=== PATIENT | female | born 1945 | race Caucasian/White ===

== ENCOUNTER 2022-06-05 16:32 | Emergency (ER) | payer MEDICARE, OTHER ==
[~2022-06-05] VITALS: Ht 165.1 cm; Wt 86.2 kg
--- NOTE | 2022-06-05 16:58 | ED General ---
General Chief Complaint: Hip/Pelvic Problems Stated Complaint: HIP PAIN Nursing Triage Note: PT TO [facility], RECENTLY MOVED TO THE AREA. PT C/O R HIP PAIN W AMBULATION, SOA, AND CHRONIC AFIB, DENIES CP. PT A&OX4. Source of Information: Patient, EMS Exam Limitations: No Limitations History of Present Illness Date Seen by Provider: Jun 05, 2022 Time Seen by Provider: 16:30 Initial Comments Patient is a 77 yo F who presents to the ED with chronic right hip pain, shortness of air, and A. fib. She is advised any new symptoms. She states she recently moved to the area and moved in with her daughter. States she has not yet established a local PCP or a local business planning manager. EMS states patient was stable en route. Allergies and Home Medications Allergies Coded Allergies: cyclobenzaprine (Verified Allergy, Unknown, 06/05/22) Patient Home Medication List Home Medication List Reviewed: Yes Review of Systems Review of Systems Constitutional: no symptoms reported EENTM: no symptoms reported Respiratory: see HPI Cardiovascular: no symptoms reported Gastrointestinal: no symptoms reported Musculoskeletal: see HPI Past Vomjglc-Skywln-Vehtqt Hx Patient Social History Tobacco Use?: Yes Tobacco type used: Cigarettes Smoking Status: Current Everyday Smoker Use of E-Cig and/or Vaping dev: No Substance use?: No Alcohol Use?: No Immunizations Up To Date Influenza Vaccine Up-to-Date: No; Not Current First/Initial COVID19 Vaccinat: NONE Second COVID19 Vaccination Ford: NONE Third COVID19 Vaccination Date: NONE COVID19 Vaccine Can Sterilizer: NONE Physical Exam Vital Signs Vital Signs - First Documented 06/05/22 16:34 Temp 36.1 Pulse 93 Resp 20 B/P (MAP) 143/70 (94) Pulse Ox 97 O2 Delivery Room Air Capillary Refill : Less Than 3 Seconds Height, Weight, BMI Height: '" Weight: lbs. oz. kg; 31.00 BMI Method: General Appearance: No Apparent Distress, WD/WN HEENT: PERRL/EOMI, TMs Normal, Normal ENT Inspection, Pharynx Normal Neck: Full Range of Motion, Normal Inspection, Non Tender, Supple Respiratory: Chest Non Tender, Lungs Clear, Normal Breath Sounds Cardiovascular: Regular Rate, Rhythm Gastrointestinal: Normal Bowel Sounds Back: Normal Inspection, No Vertebral Tenderness Extremity: Normal Capillary Refill Neurologic/Psychiatric: Alert, Oriented x3, No Motor/Sensory Deficits, Normal Mood/Affect Skin: Normal Color, Warm/Dry Progress/Results/Core Measures Suspected Sepsis SIRS Temperature: Pulse: 93 Respiratory Rate: 20 Blood Pressure 143 /70 Mean: 94 Results/Orders Lab Results Laboratory Tests Test 06/05/22 17:38 Range/Units Troponin I < 0.028 <0.028 NG/ML My Orders Orders - MIGUEL JHA APRN Pelvis With Right Hip 2-3views (06/05/22 16:47) Ekg Tracing (06/05/22 16:47) Chest 1 View, Ap/Pa Only (06/05/22 16:47) Troponin I Hughes (06/05/22 16:47) Vital Signs/I&O 06/05/22 06/05/22 16:34 18:24 Temp 36.1 36.1 Pulse 93 87 Resp 20 20 B/P (MAP) 143/70 (94) 140/68 Pulse Ox 97 97 O2 Delivery Room Air Room Air Capillary Refill : Less Than 3 Seconds Blood Pressure Mean: 94 Progress Note : Progress Note Patient is nontoxic and well-hydrated on exam. All of her complaints are chronic nothing appears acute. Troponin is negative. EKG without acute ischemic change or arrhythmia. Right hip and pelvis x-rays are acutely negative. Chest x-ray reveals no acute findings. It was discussed that patient needs to establish local PCP and business planning manager for further evaluation of her chronic problems. There appears to be no acute issues at this time warranting admission or further diagnostic testing. Return precautions for urgent symptomology discussed. Patient verbalized understanding. ECG EKG : EKG Time: 17:15 Rate: 80 Rhythm: A Fib/Flutter ECG Impression: Atrial Fibrillation Departure Impression Primary Impression: Chronic right hip pain Additional Impressions: Atrial fibrillation Qualified Codes: I48.20 - Chronic atrial fibrillation, unspecified Chronic shortness of breath Disposition: HOME, SELF-CARE Condition: Stable Departure-Patient Inst. Decision time for Depature: 18:10 Patient Instructions: Chronic Pain (DC), Shortness of Breath (Dyspnea) MIGUEL JHA APRN Jun 05, 2022 16:58
--- NOTE | 2022-06-05 17:36 | Diagnostic Imaging Report ---
INDICATION: Dyspnea. EXAMINATION: AP view of the chest was obtained. COMPARISON: No previous study is available for comparison at this time. FINDINGS: Heart size and pulmonary vasculature are within normal limits, and the lungs are clear, bilaterally. IMPRESSION: Unremarkable chest. Dictated by: Dictated on workstation # [id number]
--- NOTE | 2022-06-05 17:36 | Diagnostic Imaging Report ---
INDICATION: Pelvic and right hip pain. EXAMINATION: AP view of the pelvis was obtained with coned AP and frog-leg views of right hip. FINDINGS: There is marked narrowing of right hip joint space with subchondral sclerosis and marginal spurring. Note is also made of lower lumbar spondylosis and femoral arterial atherosclerosis. No acute fracture or malalignment is identified. IMPRESSION: Degenerative-type findings most pronounced in the right hip joint and lower lumbar region without acute abnormality detected. Dictated by: Dictated on workstation # [id number]
[2022-06-05 18:24] VITALS: BP 140/68
== END 2022-06-05 19:05 | disposition home or self-care (01) ==
LOC: ER 16:34
DX: M25.551 Pain in right hip (principal); G89.29 Other chronic pain; I48.91 Unspecified atrial fibrillation; R06.02 Shortness of breath; F17.210 Nicotine dependence, cigarettes, uncomplicated; Z28.310 Unvaccinated for COVID-19
CPT/HCPCS: 36415; 71045; 84484; 93005

== ENCOUNTER → 2022-06-09 | Outpatient (CLI) | payer MEDICARE | LOC: ORTHO 11:27 | PROVIDERS: ATTEND Orthopaedic Surgery | DX: M16.11 Unilateral primary osteoarthritis, right hip (principal) | CPT/HCPCS: 99203 ==

== ENCOUNTER 2022-06-16 12:12 | Emergency (ER) | payer MEDICARE ==
[2022-06-16] MEDS ORDERED: ASPIRIN 81 MG CHEW (CHILDREN'S ASA) PO ONE (12:30)
--- NOTE | 2022-06-16 12:30 | ED General ---
General Chief Complaint: General Problems/Pain Stated Complaint: CHEST PAINS Nursing Triage Note: pt to rm 7 by [facility] with c/o chest tightness after waking up about 30 min prior to calling ems. pt also states she has r hip pain that is chronic Source of Information: Patient Exam Limitations: No Limitations History of Present Illness Date Seen by Provider: Jun 16, 2022 Time Seen by Provider: 12:14 Initial Comments Here by EMS with chest tightness after waking up about 30 minutes prior to arrival. She is concerned that this may be a reaction to one of her medicines. She has been seen previously for similar concern and for her hip pain. She just moved to the area. [facility]. She apparently started a new anxiety medicine as well as tramadol today. Denies chest pain currently or breathing problems. Did have some dizziness and shortness of breath that has gotten better. Denies fever or chills. Timing/Duration: 1/2 Hour, Changing Over Time, Gone Now Severity: Mild, Moderate Associated Systoms: Chest Pain; No Fever/Chills, No Nausea/Vomiting; Shortness of Air, Weakness Allergies and Home Medications Allergies Coded Allergies: cyclobenzaprine (Verified Allergy, Unknown, 06/05/22) Patient Home Medication List Home Medication List Reviewed: Yes Review of Systems Review of Systems Constitutional: see HPI; No chills, No fever EENTM: No nose congestion, No throat pain Respiratory: No cough; short of breath Cardiovascular: chest pain (Central tightness that is moderate and changing in intensity); No edema Gastrointestinal: No nausea, No vomiting Genitourinary: no symptoms reported Musculoskeletal: joint pain; No joint swelling Skin: change in color (Several small ecchymotic areas to bilateral arms); No lesions Psychiatric/Neurological: Anxiety, Weakness All Other Systems Reviewed Negative Unless Noted: Yes Past Dklcotm-Lwhvnh-Oyhltt Hx Patient Social History Tobacco Use?: Yes Substance use?: No Alcohol Use?: No Pt feels they are or have been: No Immunizations Up To Date Influenza Vaccine Up-to-Date: No; Not Current First/Initial COVID19 Vaccinat: NONE Second COVID19 Vaccination Ford: NONE Third COVID19 Vaccination Date: NONE Past Medical History Surgery/Hospitalization HX: anxiety hip surgeries Cardiac: Yes Atrial Fibrillation Musculoskeletal: Yes Endocrine: No Cancer: No Psychosocial: Yes Anxiety, Depression Family Medical History No Pertinent Family Hx Physical Exam Vital Signs Vital Signs - First Documented 06/16/22 12:14 Temp 36.5 Pulse 76 Resp 18 B/P (MAP) 126/78 (94) Capillary Refill : Height, Weight, BMI Height: '" Weight: lbs. oz. kg; 31.00 BMI Method: General Appearance: WD/WN, Anxious, Mild Distress HEENT: PERRL/EOMI, Pharynx Normal Neck: Non Tender, Supple Respiratory: Lungs Clear, Normal Breath Sounds Cardiovascular: Regular Rate, Rhythm, No Murmur Gastrointestinal: Non Tender, Soft Back: Normal Inspection, No CVA Tenderness, No Vertebral Tenderness Extremity: Non Tender, No Calf Tenderness Neurologic/Psychiatric: Alert, Oriented x3 Skin: Warm/Dry, Ecchymosis (Few small ecchymotic areas to bilateral arms) Progress/Results/Core Measures Suspected Sepsis SIRS Temperature: Pulse: 76 Respiratory Rate: 18 Laboratory Tests 06/16/22 12:30: White Blood Count 8.2 Blood Pressure 126 /78 Mean: 94 Laboratory Tests 06/16/22 12:30: Creatinine 0.76, INR Comment 2.9H, Platelet Count 379, Total Bilirubin 0.7 Results/Orders Lab Results Laboratory Tests Test 06/16/22 12:30 06/16/22 14:34 06/16/22 16:59 Range/Units White Blood Count 8.2 4.3-11.0 10^3/uL Red Blood Count 2.89 L 3.80-5.11 10^6/uL Hemoglobin 7.1 L 11.5-16.0 g/dL Hematocrit 24 L 35-52 % Mean Corpuscular Volume 83 80-99 fL Mean Corpuscular Hemoglobin 25 25-34 pg Mean Corpuscular Hemoglobin Concent 30 L 32-36 g/dL Red Cell Distribution Width 14.6 H 10.0-14.5 % Platelet Count 379 130-400 10^3/uL Mean Platelet Volume 9.1 9.0-12.2 fL Immature Granulocyte % (Auto) 1 % Neutrophils (%) (Auto) 71 42-75 % Lymphocytes (%) (Auto) 21 12-44 % Monocytes (%) (Auto) 7 0-12 % Eosinophils (%) (Auto) 1 0-10 % Basophils (%) (Auto) 0 0-10 % Neutrophils # (Auto) 5.8 1.8-7.8 10^3/uL Lymphocytes # (Auto) 1.7 1.0-4.0 10^3/uL Monocytes # (Auto) 0.5 0.0-1.0 10^3/uL Eosinophils # (Auto) 0.1 0.0-0.3 10^3/uL Basophils # (Auto) 0.0 0.0-0.1 10^3/uL Immature Granulocyte # (Auto) 0.1 0.0-0.1 10^3/uL Prothrombin Time 30.9 H 12.2-14.7 SEC INR Comment 2.9 H 0.8-1.4 Activated Partial Thromboplast Time 43 H 24-35 SEC Sodium Level 138 135-145 MMOL/L Potassium Level 3.4 L 3.6-5.0 MMOL/L Chloride Level 106 98-107 MMOL/L Carbon Dioxide Level 23 21-32 MMOL/L Anion Gap 9 5-14 MMOL/L Blood Urea Nitrogen 11 7-18 MG/DL Creatinine 0.76 0.60-1.30 MG/DL Estimat Glomerular Filtration Rate 82 BUN/Creatinine Ratio 14 Glucose Level 123 H 70-105 MG/DL Calcium Level 8.9 8.5-10.1 MG/DL Corrected Calcium 9.2 8.5-10.1 MG/DL Magnesium Level 1.4 L 1.6-2.4 MG/DL Total Bilirubin 0.7 0.1-1.0 MG/DL Aspartate Amino Transf (AST/SGOT) 16 5-34 U/L Alanine Aminotransferase (ALT/SGPT) 12 0-55 U/L Alkaline Phosphatase 105 40-136 U/L Myoglobin 36.2 10.0-92.0 NG/ML Troponin I < 0.028 0.029 H < 0.028 <0.028 NG/ML B-Type Natriuretic Peptide 650.6 H <100.0 PG/ML Total Protein 6.9 6.4-8.2 GM/DL Albumin 3.6 3.2-4.5 GM/DL My Orders Orders - ELMER ZACARIAS MD Cbc With Automated Diff (06/16/22 12:23) Magnesium (06/16/22 12:23) Chest 1 View, Ap/Pa Only (06/16/22 12:23) Ekg Tracing (06/16/22 12:23) Comprehensive Metabolic Panel (06/16/22 12:23) Myoglobin Serum (06/16/22 12:23) Protime With Inr (06/16/22 12:23) Partial Thromboplastin Time (06/16/22 12:23) O2 (06/16/22 12:23) Monitor-Rhythm Ecg Trace Only (06/16/22 12:23) Lipid Panel (06/17/22 06:00) Ed Iv/Invasive Line Start (06/16/22 12:23) Troponin I Monona (06/16/22 12:23) Aspirin Chewable Tablet (Baby Aspirin Ch (06/16/22 12:30) Bnp Jammie (06/16/22 13:25) General/Regular (06/16/22 Lunch) Troponin I Jammie (06/16/22 14:27) Ns Iv 500 Ml (Sodium Chloride 0.9%) (06/16/22 16:00) Troponin I Monona (06/16/22 16:30) Medications Given in ED Current Medications Medications Dose Ordered Sig/Marco Antonio Route Start Time Stop Time Status Last Admin Dose Admin Aspirin 324 mg ONCE ONCE PO 06/16/22 12:30 06/16/22 12:31 DC 06/16/22 12:53 324 MG Sodium Chloride 500 ml @ 0 mls/hr Q0M ONCE IV 06/16/22 16:00 06/16/22 16:01 DC 06/16/22 16:03 500 MLS/HR Vital Signs/I&O 06/16/22 12:14 Temp 36.5 Pulse 76 Resp 18 B/P (MAP) 126/78 (94) Capillary Refill : Blood Pressure Mean: 94 Progress Note : Progress Note Seen and evaluated. IV, labs, EKG and chest x-ray ordered. ASA 324 mg p.o. Monitor patient. 1430: Patient is pain-free and doing better. We will repeat troponin now. First set is negative. She is asking for something to eat which we will go ahead and do. Monitor patient. 1555: Repeat troponin has gone from <0.028 to 0.029. Given the noted rise, we will repeat the troponin again at 2 hours and make sure that this is not sustained and or not significant or look f or significant rise. This was discussed with the patient who agrees. She is still feeling much better and has eaten her lunch without difficulty. She has had no chest pain for the last few hours. Monitor patient. 1741: Repeat troponin is negative. No concerns for persistent cardiac event. Patient will need to do follow-up and she has some of that already set. She initiated her evaluation with PCP yesterday and I will have her continue that. Discharged home with return precautions. Patient verbalized understanding of instructions and agreement with plan. 1744: I did discuss the case with Dr. Worrell and he will see her in follow-up. Patient to call for appointment. ECG Initial ECG Impression Date: Jun 16, 2022 Initial ECG Impression Time: 12:21 Initial ECG Rate: 76 Initial ECG Rhythm: Normal Sinus Comment Sinus rhythm with artifact and sinus arrhythmia. Normal axis. No evidence of ST elevation MO. Similar to previous of 06/15/2022. Interpreted by me. Diagnostic Imaging Diagonstic Imaging: Xray Plain Films/CT/US/NM/MRI: chest Comments [facility] [place], [place] NAME: [facility] REC#: [id number] PT STATUS: REG ER : 1945 PHYSICIAN: ELMER ZACARIAS MD ADMIT DATE: 06/16/22/ER Draft Date of Exam:06/16/22 CHEST 1 VIEW, AP/PA ONLY INDICATION: Chest pain. TECHNIQUE: Frontal chest obtained at 12:47 p.m. and compared with 06/05/2022. FINDINGS: There is cardiomegaly. Mediastinal silhouette is unremarkable. The lungs are clear. There is no pneumothorax or pleural fluid. IMPRESSION: Cardiomegaly with no acute process in the chest. Dictated on workstation # [id number] Dict: 06/16/22 1308 Trans: 06/16/22 1310 [id number] Interpreted by: JAE HARTMAN MD Electronically signed by: Departure Impression Primary Impression: Chest pain Qualified Codes: R07.9 - Chest pain, unspecified Additional Impression: Chronic right hip pain Disposition: 01 HOME, SELF-CARE Condition: Improved Departure-Patient Inst. Decision time for Depature: 17:45 Referrals: NATALIE WORRELL MD Patient Instructions: Chest Pain Add. Discharge Instructions: All discharge instructions reviewed with patient and/or family. Voiced understanding. Follow-up with Dr. Worrell for recheck and further evaluation of your chest pain. Call his office in the morning for appointment in the next day or 2. Keep appointment with your primary care provider as well. Return for worse pain, fever, vomiting, weakness, breathing problems or other concerns as needed. Copy Copies To 1: SHAN JUAREZ MD, TIMOTHY D MD Jun 16, 2022 12:30
[2022-06-16 12:50] LABS: BASOPHILS % (AUTO) 0 % (0-10); EOSINOPHILS # (AUTO) 0.1 10^3/uL (0.0-0.3); EOSINOPHILS % (AUTO) 1 % (0-10); HEMATOCRIT 24 % (35-52); HEMOGLOBIN 7.1 g/dL (11.5-16.0); LYMPHOCYTES # (AUTO) 1.7 10^3/uL (1.0-4.0); LYMPHOCYTES % (AUTO) 21 % (12-44); MEAN CORPUSCULAR HEMOGLOBIN 25 pg (25-34); MEAN CORPUSCULAR HGB CONC 30 g/dL (32-36); MEAN CORPUSCULAR VOLUME 83 fL (80-99); MEAN PLATELET VOLUME 9.1 fL (9.0-12.2); MONOCYTES # (AUTO) 0.5 10^3/uL (0.0-1.0); MONOCYTES % (AUTO) 7 % (0-12); NEUTROPHILS # (AUTO) 5.8 10^3/uL (1.8-7.8); NEUTROPHILS % (AUTO) 71 % (42-75); PLATELET COUNT 379 10^3/uL (130-400); WHITE BLOOD COUNT 8.2 10^3/uL (4.3-11.0)
[2022-06-16 12:54] LABS: ALBUMIN 3.6 GM/DL (3.2-4.5); POTASSIUM 3.4 MMOL/L (3.6-5.0)
[2022-06-16 12:55] LABS: CALCIUM 8.9 MG/DL (8.5-10.1); INR 2.9 (0.8-1.4); PROTHROMBIN TIME PATIENT 30.9 SEC (12.2-14.7)
[2022-06-16 12:56] LABS: TOTAL PROTEIN 6.9 GM/DL (6.4-8.2)
[2022-06-16 12:58] LABS: BILIRUBIN,TOTAL 0.7 MG/DL (0.1-1.0)
[2022-06-16 13:00] LABS: CREATININE SERUM 0.76 MG/DL (0.60-1.30)
[2022-06-16 13:03] LABS: MAGNESIUM 1.4 MG/DL (1.6-2.4)
--- NOTE | 2022-06-16 13:11 | Diagnostic Imaging Report ---
INDICATION: Chest pain. TECHNIQUE: Frontal chest obtained at 12:47 p.m. and compared with 06/05/2022. FINDINGS: There is cardiomegaly. Mediastinal silhouette is unremarkable. The lungs are clear. There is no pneumothorax or pleural fluid. IMPRESSION: Cardiomegaly with no acute process in the chest. Dictated by: Dictated on workstation # [id number]
[2022-06-16] MEDS ORDERED: NS IV 500 ML 500 ML IV ONE (16:00)
[2022-06-16 18:02] VITALS: BP 155/90
== END 2022-06-16 18:01 | disposition home or self-care (01) ==
LOC: EDUNIT# 12:12 → ER 12:13
DX: R07.89 Other chest pain (principal); M25.551 Pain in right hip; G89.29 Other chronic pain; Z28.310 Unvaccinated for COVID-19
CPT/HCPCS: 36415; 71045; 80053; 83735; 83874; 83880; 84484; 85025; 85610; 85730; 93005; 93041

== ENCOUNTER 2022-06-25 06:29 | Inpatient (IN) | payer MEDICARE ==
[~2022-06-25] VITALS: Ht 165 cm; Wt 86.4 kg
[2022-06-25] MEDS ORDERED: ANTACID SUSP 30 ML UDC (MYLANTA) PO ONE (06:45)
[2022-06-25] MEDS ORDERED: LIDOCAINE 2% VISCOUS 15 ML UDC PO ONE (06:45)
[2022-06-25] MEDS ORDERED: ASPIRIN 81 MG CHEW (CHILDREN'S ASA) PO ONE (06:45)
[2022-06-25] MEDS ORDERED: ONDANSETRON 4 MG/2 ML (SDV) Z0FRAN IVP ONE (06:45)
[2022-06-25 07:00] LABS: BASOPHILS % (AUTO) 0 % (0-10); EOSINOPHILS % (AUTO) 1 % (0-10); HEMATOCRIT 28 % (35-52); HEMOGLOBIN 8.1 g/dL (11.5-16.0); LYMPHOCYTES # (AUTO) 1.8 10^3/uL (1.0-4.0); LYMPHOCYTES % (AUTO) 23 % (12-44); MEAN CORPUSCULAR HEMOGLOBIN 23 pg (25-34); MEAN CORPUSCULAR HGB CONC 29 g/dL (32-36); MEAN CORPUSCULAR VOLUME 81 fL (80-99); MEAN PLATELET VOLUME 8.5 fL (9.0-12.2); MONOCYTES # (AUTO) 0.5 10^3/uL (0.0-1.0); MONOCYTES % (AUTO) 6 % (0-12); NEUTROPHILS # (AUTO) 5.6 10^3/uL (1.8-7.8); NEUTROPHILS % (AUTO) 70 % (42-75); PLATELET COUNT 430 10^3/uL (130-400)
[2022-06-25 07:14] LABS: ALBUMIN 3.8 GM/DL (3.2-4.5); INR 1.7 (0.8-1.4); POTASSIUM 3.1 MMOL/L (3.6-5.0); PROTHROMBIN TIME PATIENT 20.1 SEC (12.2-14.7)
[2022-06-25 07:15] LABS: CALCIUM 9.3 MG/DL (8.5-10.1)
[2022-06-25 07:16] LABS: TOTAL PROTEIN 7.4 GM/DL (6.4-8.2)
[2022-06-25 07:18] LABS: BILIRUBIN,TOTAL 0.5 MG/DL (0.1-1.0)
[2022-06-25 07:20] LABS: CREATININE SERUM 0.9 MG/DL (0.60-1.30)
[2022-06-25 07:23] LABS: MAGNESIUM 1.6 MG/DL (1.6-2.4)
[2022-06-25 07:24] LABS: LIPASE 12 U/L (8-78)
[2022-06-25] MEDS ORDERED: POTASSIUM CL 10MEQ/50ML IVPB 50 ML IV ONE (07:30)
[2022-06-25] MEDS ORDERED: NS IV 1000 ML 1,000 ML IV SCH (07:30)
--- NOTE | 2022-06-25 07:38 | Diagnostic Imaging Report ---
EXAMINATION: Chest 1 view HISTORY: Chest pain COMPARISON: 06/16/2022 FINDINGS: Heart size and pulmonary vasculature are stable. The lungs are clear without consolidation, pleural effusion, or pneumothorax. Degenerative changes of the thoracic spine. Osseous structures are otherwise intact. IMPRESSION: 1. No acute radiographic abnormality in the chest. Dictated by: Dictated on workstation # [id number]
--- NOTE | 2022-06-25 07:59 | ED Chest Pain ---
General Chief Complaint: Chest Pain Stated Complaint: CP Nursing Triage Note: brought in by [facility] for chest pain. pt reports being startled awake by yelling. reports anxiety reguarding returning to home. pt having visual hallucinations per ems. Source: patient Exam Limitations: no limitations History of Present Illness Date Seen by Provider: Jun 25, 2022 Time Seen by Provider: 06:30 Initial Comments This is 77-year-old woman presents to the emergency room via EMS with complaints of chest pain that started this morning when she was startled awake. Patient is not aware of what caused her to wake up startled but she reports a pounding/racing heart and chest pain upon waking. EMS reported that [facility] was somehow involved with the family last night or this morning. They reported there were some arguments and family noted patient to be hallucinating. Patient is a relatively vague historian. She reports history of atrial fibrillation. She does not know her medications but believes she takes Xarelto. She has not taken her morning medications. I did contact of the [facility] pharmacy this morning and they noted she had filled tramadol and bupropion recently. She reports her primary care is with the [facility] clinic and her content designer is Dr. Stout in [place]. She has epigastric tenderness on exam. Patient admits to smoking marijuana. Patient state her daughter figure (Daniel) said, "You can't come back here if you take an ambulance." Patient does not want to go back to Daniel's home and does not want us to communicate with any family or friends. 11:16 -I was able to contact to the [facility] pharmacy and discovered that patient filled Xarelto 20 mg daily and gabapentin 300 mg (2 in the morning, 1 in the afternoon, and 1 at bedtime) about 2 weeks ago. She had previously filled bupropion 150 mg daily and tramadol 50 mg from the [facility] pharmacy. Allergies and Home Medications Allergies Coded Allergies: cyclobenzaprine (Verified Allergy, Unknown, 06/05/22) Patient Home Medication List Home Medication List Reviewed: Yes Apixaban (Eliquis) 5 Mg Tablet, 5 MG PO BID Prescribed by: ROSEANN LARA on 06/27/22 1316 Bupropion HCl (Bupropion HCl Sr) 150 Mg Tablet.er, 150 MG PO BID Prescribed by: ROSEANN LARA on 11/28/22 1316 Cefdinir (Cefdinir) 300 Mg Capsule, 300 MG PO BID Prescribed by: ROSEANN LARA on 06/27/221315 Pantoprazole Sodium (Pantoprazole Sodium) 40 Mg Tablet.dr, 40 MG PO DAILY Prescribed by: ROSEANN LARA on 06/27/221315 Review of Systems Review of Systems Constitutional: no symptoms reported EENTM: No Symptoms Reported Respiratory: Orthopnea Cardiovascular: See HPI Gastrointestinal: See HPI Genitourinary: No Symptoms Reported Musculoskeletal: no symptoms reported Skin: no symptoms reported Psychiatric/Neurological: See HPI Endocrine: No Symptoms Reported Hematologic/Lymphatic: No Symptoms Reported Past Glilght-Brcdzr-Loohlx Hx Patient Social History Tobacco Use?: Yes Substance use?: Yes Substance type: Marijuana Alcohol Use?: No Pt feels they are or have been: No Immunizations Up To Date First/Initial COVID19 Vaccinat: NONE Second COVID19 Vaccination Ford: NONE Third COVID19 Vaccination Date: NONE Past Medical History Surgery/Hospitalization HX: anxiety, depression, afib hip surgeries Surgeries: Yes Orthopedic Respiratory: No Cardiac: Yes Atrial Fibrillation Neurological: No : No Genitourinary: No Gastrointestinal: No Musculoskeletal: Yes Arthritis Endocrine: No Cancer: No Psychosocial: Yes Anxiety, Depression Family Medical History No Pertinent Family Hx Physical Exam Vital Signs Vital Signs - First Documented 06/25/22 06:29 Temp 35.9 Pulse 60 Resp 16 B/P (MAP) 124/88 (100) Pulse Ox 99 O2 Delivery Room Air Capillary Refill : Less Than 3 Seconds Height, Weight, BMI Height: '" Weight: lbs. oz. kg; 31.00 BMI Method: General Appearance: No Apparent Distress, WD/WN, Anxious (Mildly) HEENT: PERRL/EOMI, Normal ENT Inspection Neck: Normal Inspection; No JVD Respiratory: Chest Non Tender, Lungs Clear, Normal Breath Sounds, No Accessory Muscle Use, No Respiratory Distress Cardiovascular: No Edema, No JVD, No Murmur, Normal Peripheral Pulses, Irregularly Irregular (Normal rate) Gastrointestinal: Normal Bowel Sounds, Soft, Tenderness (Epigastric) Extremity: Normal Inspection, Non Tender, No Pedal Edema Neurologic/Psychiatric: Alert, Oriented x3, No Motor/Sensory Deficits, Normal Mood/Affect, Other (Poor historian) Skin: Normal Color, Warm/Dry Progress/Results/Core Measures Results/Orders Lab Results Laboratory Tests Test 06/25/22 06:42 06/25/22 08:01 06/25/22 10:05 Range/Units White Blood Count 8.0 4.3-11.0 10^3/uL Red Blood Count 3.46 L 3.80-5.11 10^6/uL Hemoglobin 8.1 L 11.5-16.0 g/dL Hematocrit 28 L 35-52 % Mean Corpuscular Volume 81 80-99 fL Mean Corpuscular Hemoglobin 23 L 25-34 pg Mean Corpuscular Hemoglobin Concent 29 L 32-36 g/dL Red Cell Distribution Width 15.1 H 10.0-14.5 % Platelet Count 430 H 130-400 10^3/uL Mean Platelet Volume 8.5 L 9.0-12.2 fL Immature Granulocyte % (Auto) 0 % Neutrophils (%) (Auto) 70 42-75 % Lymphocytes (%) (Auto) 23 12-44 % Monocytes (%) (Auto) 6 0-12 % Eosinophils (%) (Auto) 1 0-10 % Basophils (%) (Auto) 0 0-10 % Neutrophils # (Auto) 5.6 1.8-7.8 10^3/uL Lymphocytes # (Auto) 1.8 1.0-4.0 10^3/uL Monocytes # (Auto) 0.5 0.0-1.0 10^3/uL Eosinophils # (Auto) 0.0 0.0-0.3 10^3/uL Basophils # (Auto) 0.0 0.0-0.1 10^3/uL Immature Granulocyte # (Auto) 0.0 0.0-0.1 10^3/uL Absolute Reticulocyte Count 64 24-90 10e9/uL Percent Reticulocyte Count 1.86 0.50-2.40 % Prothrombin Time 20.1 H 12.2-14.7 SEC INR Comment 1.7 H 0.8-1.4 Activated Partial Thromboplast Time 31 24-35 SEC Sodium Level 139 135-145 MMOL/L Potassium Level 3.1 L 3.6-5.0 MMOL/L Chloride Level 105 98-107 MMOL/L Carbon Dioxide Level 20 L 21-32 MMOL/L Anion Gap 14 5-14 MMOL/L Blood Urea Nitrogen 16 7-18 MG/DL Creatinine 0.90 0.60-1.30 MG/DL Estimat Glomerular Filtration Rate 67 BUN/Creatinine Ratio 18 Glucose Level 170 H 70-105 MG/DL Calcium Level 9.3 8.5-10.1 MG/DL Corrected Calcium 9.5 8.5-10.1 MG/DL Magnesium Level 1.6 1.6-2.4 MG/DL Iron Level 19 L 33-167 ug/dL Ferritin 14.7 L 20.0-177.0 ng/mL Total Bilirubin 0.5 0.1-1.0 MG/DL Aspartate Amino Transf (AST/SGOT) 9 5-34 U/L Alanine Aminotransferase (ALT/SGPT) 7 0-55 U/L Alkaline Phosphatase 99 40-136 U/L Myoglobin 40.7 10.0-92.0 NG/ML Troponin I < 0.028 0.120 H <0.028 NG/ML Total Protein 7.4 6.4-8.2 GM/DL Albumin 3.8 3.2-4.5 GM/DL Lipase 12 8-78 U/L Vitamin B12 Level 780 830-7417 pg/mL Urine Color ORANGE Urine Clarity CLEAR Urine pH 6.0 5-9 Urine Specific [place] 1.025 H 1.016-1.022 Urine Protein NEGATIVE NEGATIVE Urine Glucose (UA) NEGATIVE NEGATIVE Urine Ketones NEGATIVE NEGATIVE Urine Nitrite POSITIVE H NEGATIVE Urine Bilirubin NEGATIVE NEGATIVE Urine Urobilinogen 0.2 < = 1.0 MG/DL Urine Leukocyte Esterase 2+ H NEGATIVE Urine RBC (Auto) NEGATIVE NEGATIVE Urine RBC NONE /HPF Urine WBC 50-100 H /HPF Urine Squamous Epithelial Cells 0-2 /HPF Urine Crystals NONE /LPF Urine Bacteria LARGE H /HPF Urine Casts NONE /LPF Urine Mucus NEGATIVE /LPF Urine Culture Indicated YES Urine Opiates Screen NEGATIVE NEGATIVE Urine Oxycodone Screen NEGATIVE NEGATIVE Urine Methadone Screen NEGATIVE NEGATIVE Urine Propoxyphene Screen NEGATIVE NEGATIVE Urine Barbiturates Screen NEGATIVE NEGATIVE Ur Tricyclic Antidepressants Screen NEGATIVE NEGATIVE Urine Phencyclidine Screen NEGATIVE NEGATIVE Urine Amphetamines Screen NEGATIVE NEGATIVE Urine Methamphetamines Screen NEGATIVE NEGATIVE Urine Benzodiazepines Screen NEGATIVE NEGATIVE Urine Cocaine Screen NEGATIVE NEGATIVE Urine Cannabinoids Screen POSITIVE H NEGATIVE Micro Results Microbiology 06/25/22 Urine Culture - Final, Complete Escherichia coli My Orders Orders - BECKY DICKERSON MD Ekg Tracing (06/25/22 06:32) Cbc With Automated Diff (06/25/22 06:41) Magnesium (06/25/22 06:41) Chest 1 View, Ap/Pa Only (06/25/22 06:41) Comprehensive Metabolic Panel (06/25/22 06:41) Myoglobin Serum (06/25/22 06:41) Protime With Inr (06/25/22 06:41) Partial Thromboplastin Time (06/25/22 06:41) O2 (06/25/22 06:41) Monitor-Rhythm Ecg Trace Only (06/25/22 06:41) Lipid Panel (06/26/22 03:00) Ed Iv/Invasive Line Start (06/25/22 06:41) Troponin I Jammie (06/25/22 06:41) Lipase (06/25/22 06:41) Aspirin Chewable Tablet (Baby Aspirin Ch (06/25/22 06:45) Ua Culture If Indicated (06/25/22 06:41) Drug Screen Stat (Urine) (06/25/22 06:41) Ondansetron Injection (Zofran Injectio (06/25/22 06:45) Lidocaine 2% Viscous 15 Ml (Xylocaine Vi (06/25/22 06:45) Antacid Suspension (Mylanta Suspension (06/25/22 06:45) Ns Iv 1000 Ml (Sodium Chloride 0.9%) (06/25/22 07:30) Potassium Cl 10meq/50ml Ivpb (Kcl 10 Meq (06/25/22 07:30) Troponin I Jammie (06/25/22 09:45) Urine Culture (06/25/22 08:01) Alprazolam Tablet (Xanax Tablet) (06/25/22 09:30) Ceftriaxone 1 Gm Pre-Mix (Rocephin 1 Gm (06/25/22 10:59) Enoxaparin Injection (Lovenox Injection) (06/25/22 11:30) Clopidogrel Tablet (Plavix Tablet) (06/25/22 11:30) Pantoprazole Tablet (Protonix Tablet) (06/25/22 11:30) Ed Admission (Communication) (06/25/22 11:33) Medications Given in ED Vital Signs/I&O 06/25/22 06:29 Temp 35.9 Pulse 60 Resp 16 B/P (MAP) 124/88 (100) Pulse Ox 99 O2 Delivery Room Air Blood Pressure Mean: 100 Progress Progress Note #1: Time: 11:07 Progress Note Chest pain work-up was pursued upon arrival. She received aspirin 324 mg. Patient also received Zofran and a GI cocktail due to epigastric tenderness. She reported minimal improvement of pain. She was still rating her pain as 4/10 after the GI cocktail. Nitroglycerin was not administered as blood pressures were in the lower normotensive range. Repeat troponin was obtained approximately 4 hours after onset of symptoms. There was a notable increase in troponin which may indicate NSTEMI. Patient is now stating she is free of chest pain. She still has some right hip pain. We did contact [facility] and they do not have any recent stress test or cardiac angiography results. Patient states that her content designer is Dr. Stout in [place] and it has been many years since she has had stress testing or angiography performed. Hypokalemia was treated with potassium 10 mEq by IV route. She also received a liter of IV normal saline. We discussed CODE STATUS, and she would like to remain full code. I offered to contact family members, but she specifically request that I not contact anyone in her family. Progress Note #2: Time: 11:23 Progress Note Case was discussed with Dr. Vinson. He requested patient be further treated with therapeutic Lovenox, Plavix 75 mg, Protonix 40 mg orally, and a transfusion of 1 unit PRBC. He requested admission to cardiac stepdown or the ICU. We are limiting Plavix to 75 mg due to her anemia, although the anemia appears improved from her visit on June 16. Progress Note #3: Time: 11:38 Progress Note Case was discussed with Dr. Lara who accepts admission and will be placing admission orders. Report was given to eICU. Initial ECG Impression Date: Jun 25, 2022 Initial ECG Impression Time: 06:39 Initial ECG Rate: 61 Initial ECG Rhythm: A Fib/Flutter Initial ECG Impression: Atrial Fibrillation Comment Atrial fibrillation with no ST elevation or depression. No abnormal intervals or axis deviation. Diagnostic Imaging Diagonstic Imaging: Xray Plain Films/CT/US/NM/MRI: chest Comments Chest x-ray viewed by me and report reviewed. See report below: NAME: CAR[facility]LLINS [facility] REC#: [id number] PT STATUS: REG ER : 1945 PHYSICIAN: BECKY DICKERSON MD ADMIT DATE: 06/25/22/ER Draft Date of Exam:06/25/22 CHEST 1 VIEW, AP/PA ONLY EXAMINATION: Chest 1 view HISTORY: Chest pain COMPARISON: 06/16/2022 FINDINGS: Heart size and pulmonary vasculature are stable. The lungs are clear without consolidation, pleural effusion, or pneumothorax. Degenerative changes of the thoracic spine. Osseous structures are otherwise intact. IMPRESSION: 1. No acute radiographic abnormality in the chest. Dictated on workstation # [id number] Dict: 06/25/22 0736 Trans: 06/25/22 0737 [facility] [id number] Interpreted by: RUCHI FERRER DO Departure Communication (Admissions) Time/Spoke to Admitting Phy: 11:25 Dr. Lara Time/Spoke to Consulting Phy: 11:07 Dr. Vinson Impression Primary Impression: Chest pain Qualified Codes: R07.9 - Chest pain, unspecified Additional Impressions: Atrial fibrillation Qualified Codes: I48.91 - Unspecified atrial fibrillation Hypokalemia Anemia Qualified Codes: D64.9 - Anemia, unspecified Elevated troponin Epigastric pain UTI (urinary tract infection) Qualified Codes: N39.0 - Urinary tract infection, site not specified Disposition: ADMITTED INPATIENT Condition: Improved Admissions Decision to Admit Reason: Admit from ER (General) Decision to Admit/Date: Jun 25, 2022 Time/Decision to Admit Time: 11:07 Departure-Patient Inst. Referrals: DEMETRIUS WEBSTER DO (PCP/Family) Primary Care Physician Scripts Cefdinir (Cefdinir) 300 Mg Capsule 300 MG PO BID, #10 CAP Prov: ROSEANN LARA DO 06/27/22 Pantoprazole Sodium (Pantoprazole Sodium) 40 Mg Tablet.dr 40 MG PO DAILY, #30 TAB Prov: ROSEANN LARA DO 06/27/22 Bupropion HCl (Bupropion HCl Sr) 150 Mg Tablet.er 150 MG PO BID, #60 TAB Prov: ROSEANN LARA DO 06/27/22 Apixaban (Eliquis) 5 Mg Tablet 5 MG PO BID, #60 TAB Prov: ROSEANN LARA DO 06/27/22 Copy Copies To 1: [facility] [place]ies To 2: TREMANIE VINSON MD FACP FAC CCDS BECKY DICKERSON MD Jun 25, 2022 07:59
[2022-06-25 08:06] LABS: BILIRUBIN,URINE NEGATIVE (NEGATIVE); CLARITY,URINE CLEAR; COLOR,URINE ORANGE; GLUCOSE, URINE (UA) NEGATIVE (NEGATIVE); KETONES,URINE NEGATIVE (NEGATIVE); LEUKOCYTE ESTERASE ,URINE 2+ (NEGATIVE); NITRITE,URINE POSITIVE (NEGATIVE); PROTEIN,URINE NEGATIVE (NEGATIVE)
[2022-06-25 08:14] LABS: BACTERIA,URINE LARGE /HPF; SQUAMOUS EPITHELIAL CELL,UR 0-2 /HPF; WBC,URINE 50-100 /HPF
[2022-06-25] MEDS ORDERED: NITROGLYCERIN 0.4 MG SL TABS BTL 25'S SL PRN (08:15)
[2022-06-25 08:18] LABS: AMPHETAMINE SCREEN, URINE NEGATIVE (NEGATIVE); BARBITURATE SCREEN URINE NEGATIVE (NEGATIVE); BENZODIAZEPINES SCREEN URINE NEGATIVE (NEGATIVE); CANNABINOID SCREEN, URINE POSITIVE (NEGATIVE); COCAINE SCREEN URINE NEGATIVE (NEGATIVE); METHADONE STAT NEGATIVE (NEGATIVE); OPIATE SCREEN URINE NEGATIVE (NEGATIVE); OXYCODONE STAT NEGATIVE (NEGATIVE); PROPOXYPHENE STAT NEGATIVE (NEGATIVE); TRICYCLIC ANTIDEPRESSANTS SCRE NEGATIVE (NEGATIVE)
[2022-06-25] MEDS ORDERED: ALPRAZolam 0.25 MG (XANAX) TAB PO ONE (09:30)
[2022-06-25] MEDS ORDERED: cefTRIAXone 1 GM PRE-MIX 50 ML IV STA (10:59)
[2022-06-25] MEDS ORDERED: CLOPIDOGREL 75 MG (PLAVIX) TABLET PO ONE (11:30)
[2022-06-25] MEDS ORDERED: ENOXAPARIN 80 MG/0.8 ML (LOVENOX) SYR SC ONE (11:30)
[2022-06-25] MEDS ORDERED: PANTOPRAZOLE 40 MG (PROTONIX) TAB PO ONE (11:30)
[2022-06-25] MEDS ORDERED: cefTRIAXone 1 GM PRE-MIX 50 ML IV SCH ×2 (12:45→13:00)
--- NOTE | 2022-06-25 12:48 | Tele-ICU Consult ---
Progress Note 77 y/o f with hx of a fib on xarelto presents to ED with CP. Mild troponin elevation Cardiolgy consulted Recommended plavix, lovenox and transfusion (hgb 8.1) UA suggests UTI Will check lactate and blood cultures PLAN: TO icu for ACS Focused Exam Height, Weight, BMI Height: '" Weight: lbs. oz. kg; 31.00 BMI Method: Labs Laboratory Tests 06/25/22 06:42 Results Results/Procedures Labs Laboratory Tests 06/25/22 06:42 Patient resulted labs reviewed. Results Labs Labs Laboratory Tests 06/25/22 06:42: White Blood Count 8.0, Red Blood Count 3.46L, Hemoglobin 8.1L, Hematocrit 28L, Mean Corpuscular Volume 81, Mean Corpuscular Hemoglobin 23L, Mean Corpuscular Hemoglobin Concent 29L, Red Cell Distribution Width 15.1H, Platelet Count 430H, Mean Platelet Volume 8.5L, Immature Granulocyte % (Auto) 0, Neutrophils (%) (Auto) 70, Lymphocytes (%) (Auto) 23, Monocytes (%) (Auto) 6, Eosinophils (%) (Auto) 1, Basophils (%) (Auto) 0, Neutrophils # (Auto) 5.6, Lymphocytes # (Auto) 1.8, Monocytes # (Auto) 0.5, Eosinophils # (Auto) 0.0, Basophils # (Auto) 0.0, Immature Granulocyte # (Auto) 0.0, Prothrombin Time 20.1H, INR Comment 1.7H, Activated Partial Thromboplast Time 31, Sodium Level 139, Potassium Level 3.1L, Chloride Level 105, Carbon Dioxide Level 20L, Anion Gap 14, Blood Urea Nitrogen 16, Creatinine 0.90, Estimat Glomerular Filtration Rate 67, BUN/Creatinine Ratio 18, Glucose Level 170H, Calcium Level 9.3, Corrected Calcium 9.5, Magnesium Level 1.6, Total Bilirubin 0.5, Aspartate Amino Transf (AST/SGOT) 9, Alanine Aminotransferase (ALT/SGPT) 7, Alkaline Phosphatase 99, Myoglobin 40.7, Troponin I < 0.028, Total Protein 7.4, Albumin 3.8, Lipase 12 06/25/22 08:01: Urine Color ORANGE, Urine Clarity CLEAR, Urine pH 6.0, Urine Specific [place] 1.025H, Urine Protein NEGATIVE, Urine Glucose (UA) NEGATIVE, Urine Ketones NEGATIVE, Urine Nitrite POSITIVEH, Urine Bilirubin NEGATIVE, Urine Urobilinogen 0.2, Urine Leukocyte Esterase 2+H, Urine RBC (Auto) NEGATIVE, Urine RBC NONE, Urine WBC 50-100H, Urine Squamous Epithelial Cells 0-2, Urine Crystals NONE, Urine Bacteria LARGEH, Urine Casts NONE, Urine Mucus NEGATIVE, Urine Culture Indicated YES, Urine Opiates Screen NEGATIVE, Urine Oxycodone Screen NEGATIVE, Urine Methadone Screen NEGATIVE, Urine Propoxyphene Screen NEGATIVE, Urine Barbiturates Screen NEGATIVE, Ur Tricyclic Antidepressants Screen NEGATIVE, Urine Phencyclidine Screen NEGATIVE, Urine Amphetamines Screen NEGATIVE, Urine Methamphetamines Screen NEGATIVE, Urine Benzodiazepines Screen NEGATIVE, Urine Cocaine Screen NEGATIVE, Urine Cannabinoids Screen POSITIVEH 06/25/22 10:05: Troponin I 0.120H MICK CARBONE MD Jun 25, 2022 12:48
--- NOTE | 2022-06-25 12:52 | History & Physical-Hospitalist ---
History of Present Illness HPI/Chief Complaint Chief complaint: NSTEMI HPI: This is a 77-year-old female clinic patient of [facility] and cardiology in [place] who presented to the ER with chest pain found to have elevated troponin on second recheck troponin. Patient stopped smoking 2 weeks ago. Cardiology has been consulted. UTI diagnosed and Rocephin initiated. Patient has been hallucinating per family members. Source: patient Exam Limitations: no limitations Date Seen 06/25/22 Time Seen by a Provider: 14:00 Attending Physician Vaughn Boggs DO PCP Admitting Physician: Patricia Dueñas DO Attending Physician: Patricia Dueñas DO Referring Physician Date of Admission Jun 25, 2022 at 11:34 Home Medications & Allergies Home Medications Reviewed patient Home Medication Reconciliation performed by pharmacy medication reconciliations geotechnical laboratory technician and/or nursing. Patients Allergies have been reviewed. Allergies Allergies Coded Allergies cyclobenzaprine (Verified Allergy, Unknown, 06/05/22) Past Ujzzlgk-Rhzkeu-Ldhpwi Hx Patient Social History Marrital Status: single Employed/Student: retired Tobacco Use?: Yes Smoking Status: Former Smoker Substance use?: Yes Substance type: Marijuana Alcohol Use?: No Pt feels they are or have been: No Immunizations Up To Date First/Initial COVID19 Vaccinat: NONE Second COVID19 Vaccination Ford: NONE Tetanus Booster (TDap): Unknown Current Status Advance Directives: No Communicates: Verbally Primary Language: Moroccan Preferred Spoken Language: Moroccan Is interpretation needed?: No Past Medical History Atrial Fibrillation, High Cholesterol, Hypertension Anxiety, Depression Family Medical History No Pertinent Family Hx Review of Systems Constitutional: see HPI Cardiovascular: chest pain Physical Exam Physical Exam Vital Signs Vital Signs - First Documented 06/25/22 06:29 Temp 35.9 Pulse 60 Resp 16 B/P (MAP) 124/88 (100) Pulse Ox 99 O2 Delivery Room Air Capillary Refill : Less Than 3 Seconds Height, Weight, BMI Height: '" Weight: lbs. oz. kg; 31.00 BMI Method: General Appearance: No Apparent Distress, Chronically ill Eyes: Right Eye Normal Inspection, Right Eye PERRL HEENT: PERRL/EOMI, Normal ENT Inspection, Pharynx Normal, Moist Mucous Membranes Neck: Full Range of Motion, Normal Inspection, Non Tender Respiratory: Chest Non Tender, Lungs Clear, Normal Breath Sounds, No Accessory Muscle Use, No Respiratory Distress Cardiovascular: No Edema, No Gallop, No JVD, No Murmur, Normal Peripheral Pu lses, Irregularly Irregular Gastrointestinal: Normal Bowel Sounds, No Organomegaly, No Pulsatile Mass, Non Tender, Soft Back: Normal Inspection, No CVA Tenderness, No Vertebral Tenderness Extremity: Normal Capillary Refill, Normal Inspection, Normal Range of Motion, Non Tender, No Calf Tenderness, No Pedal Edema Neurologic/Psychiatric: Alert, Oriented x3, No Motor/Sensory Deficits, Normal Mood/Affect Skin: Normal Color, Warm/Dry Lymphatic: No Adenopathy Results Results/Procedures Labs Laboratory Tests 06/25/22 06:42 Patient resulted labs reviewed. Assessment/Plan Admission Diagnosis Assessment: NSTEMI Chronic atrial fibrillation Recent former smoker quit 2 weeks ago Hypertension Hyperlipidemia Presumed COPD UTI Recent hallucinations and paranoia Plan: ICU Rocephin Cardiology consult appreciated Admission Status: Inpatient Order (span 2 midnights) Reason for Inpatient Admission: NSTEMI PATRICIA DUEÑAS DO Jun 25, 2022 12:52
[2022-06-25] MEDS ORDERED: cloNIDine 0.1 MG (CATAPRES) TAB PO PRN (13:00)
[2022-06-25] MEDS ORDERED: ANTACID SUSP 30 ML UDC (MYLANTA) PO PRN (13:00)
[2022-06-25] MEDS ORDERED: BISACODYL 10 MG SUPP (DULCOLAX) PR PRN (13:00)
[2022-06-25] MEDS ORDERED: MELATONIN 3 MG TABLET PO PRN (13:00)
[2022-06-25] MEDS ORDERED: ACETAMINOPHEN 325 MG TABLET PO PRN (13:00)
[2022-06-25] MEDS ORDERED: diphenhydrAMINE 25 MG TAB (BENADRYL) PO PRN (13:00)
[2022-06-25] MEDS ORDERED: morphine INJ 4 MG/ML 1 ML (VIAL/SYRINGE) IV PRN (13:00)
[2022-06-25] MEDS ORDERED: LACTULOSE SYRUP 10GM/15ML (ENULOSE) 30ML UDC PO PRN (13:00)
[2022-06-25] MEDS ORDERED: CALCIUM CARBONATE 500 MG (TUMS) TAB.CHEW PO PRN (13:00)
[2022-06-25] MEDS ORDERED: ONDANSETRON 4 MG (ZOFRAN) ORAL DISSOLVE TAB PO PRN (13:00)
[2022-06-25] MEDS ORDERED: ENOXAPARIN 100 MG/1 ML (LOVENOX) SYR SC SCH (13:00)
[2022-06-25] MEDS ORDERED: KCL 20 MEQ TAB (K-DUR) PO ONE (13:00)
[2022-06-25] MEDS ORDERED: MILK OF MAGNESIA 400 MG/5 ML 30 ML UDC PO PRN (13:00)
[2022-06-25] MEDS ORDERED: ALPRAZolam 0.5 MG (XANAX) TAB PO PRN (13:00)
[2022-06-25] MEDS ORDERED: ONDANSETRON 4 MG/2 ML (SDV) Z0FRAN IV PRN (13:00)
[2022-06-25] MEDS ORDERED: NS IV 500 ML 500 ML IV SCH ×2 (13:00→13:15)
[2022-06-25] MEDS ORDERED: diphenhydrAMINE 50 MG/ML INJ (BENADRYL) IVP PRN (13:00)
[2022-06-25] MEDS ORDERED: polyethylene glycoL POWDER 17 GM (MIRALAX) PACK PO PRN (13:00)
[2022-06-25] MEDS ORDERED: NS IV 500 ML 500 ML IV PRN (13:00)
[2022-06-25] MEDS ORDERED: ZIPRASIDONE 20 MG INJ (GEODON) VIAL IM PRN (13:00)
[2022-06-25] MEDS ORDERED: WATER (STERILE) FOR INJ 10 ML BTL INJ SCH (13:15)
[2022-06-25 13:31] LABS: ABSOLUTE RETIC # 64 10e9/uL (24-90); RETICULOCYTE % 1.86 % (0.50-2.40)
[2022-06-25] MEDS: NS IV 1000 ML 1,000 ML IV SCH (14:26)
[2022-06-25] MEDS: GABAPENTIN 300 MG (NEURONTIN) CAP PO SCH ×2 (14:26→20:02)
[2022-06-25 15:15] VITALS: BP 145/57
[2022-06-25] MEDS ORDERED: RT-ALBUTEROL SULF 2.5 MG/3 ML PRE-MIX VIAL INH PRN (15:30)
--- NOTE | 2022-06-25 16:09 | Consultation-Cardiology ---
HPI-Cardiology Cardiology Consultation: Date of Consultation 06/25/22 Time Seen by a Provider: 14:50 Date of Admission Attending Physician Vaughn Boggs DO Admitting Physician Admitting Physician: Patricia Dueñas DO Attending Physician: Patricia Dueñas DO Consulting Physician TREMAINE WORLEY MD, MA, FACP, FACC, FSCAI, CCDS Physician requesting consult: Dr Dueñas HPI: Chief Complaint: Chest discomfort 77 yo woman who developed chest discomfort after an argument at home. This was epigastric and lower midsternal, radiating to back and arms, mild to mod in intensity, lasting about an hour, self-resolving, never experienced before, not associated with other symptoms. Has chronic, mild to mod, slowly progressive exertional shortness of breath. No n/v/d. No focal weakness. Denies palp or syncope Review of Systems-Cardiology Review of Systems Constitutional: No weight loss Eyes: No vision change Ears/Nose/Throat: No ear discharge, No nasal drainage, No recent hearing loss Respiratory: As described under HPI Cardiovascular: As described under HPI Gastrointestinal: As described under HPI Genitourinary: No dysuria, No hematuria Musculoskeletal: No back pain, No joint pain Skin: No rash, No ulcerations Psychiatric/Neurological: No seizure, No focal weakness, No syncope Hematologic: No bleeding abnormalities [id number] Hx Patient Social History Smoking Status: Former Smoker Have you traveled recently?: No Alcohol Use?: No Substance type: Marijuana Pt feels they are or have been: Yes Tobacco type used: Cigarettes Past Medical History PMH As described under Assessment. Family Medical History Family Medical History: Does not report any fam h/o early CAD or SCD Allergies and Home Medications Allergies Coded Allergies: cyclobenzaprine (Verified Allergy, Unknown, 06/05/22) Patient Home Medication List Home Medication List Reviewed: Yes Physical Exam-Cardiology Physical Exam Vital Signs/I&O 06/25/22 06/25/22 06/25/22 06/25/22 06:29 12:55 13:23 13:30 Temp 35.9 Pulse 60 52 52 52 Resp 16 23 18 B/P (MAP) 124/88 (100) 138/62 147/53 (84) Pulse Ox 99 92 97 O2 Delivery Room Air Room Air 06/25/22 06/25/22 14:00 15:15 Temp 35.9 Pulse 51 51 Resp 15 B/P (MAP) 145/57 (86) Pulse Ox 99 99 O2 Delivery Room Air Capillary Refill : Less Than 3 Seconds Constitutional: AAO x 3, well-developed, well-nourished HEENT: EOMI, hearing is well preserved; No xanthelasmas are seen Neck: carotid pulses are 2 + bilaterally, with good upstrokes Respiratory: No accessory muscle use; other (good, bilat air entry) Cardiovascular: regular rate-rhythm, S1 and S2, systolic murmur (soft LATRELL at card base) Gastrointestinal: No tender; soft; No guarding, No rebound; audible bowel sounds Extremities: No clubbing, No cyanosis, No significant edema Neurologic/Psychiatric: oriented x 3, other (moves all limbs equally) Skin: normal color, warm/dry; No rash on exposed areas, No ulcerations on exposed areas Data Review Labs Laboratory Tests 06/25/22 06:42: White Blood Count 8.0, Red Blood Count 3.46L, Hemoglobin 8.1L, Hematocrit 28L, Mean Corpuscular Volume 81, Mean Corpuscular Hemoglobin 23L, Mean Corpuscular Hemoglobin Concent 29L, Red Cell Distribution Width 15.1H, Platelet Count 430H, Mean Platelet Volume 8.5L, Immature Granulocyte % (Auto) 0, Neutrophils (%) (Auto) 70, Lymphocytes (%) (Auto) 23, Monocytes (%) (Auto) 6, Eosinophils (%) (Auto) 1, Basophils (%) (Auto) 0, Neutrophils # (Auto) 5.6, Lymphocytes # (Auto) 1.8, Monocytes # (Auto) 0.5, Eosinophils # (Auto) 0.0, Basophils # (Auto) 0.0, I mmature Granulocyte # (Auto) 0.0, Absolute Reticulocyte Count 64, Percent Reticulocyte Count 1.86, Prothrombin Time 20.1H, INR Comment 1.7H, Activated Partial Thromboplast Time 31, Sodium Level 139, Potassium Level 3.1L, Chloride Level 105, Carbon Dioxide Level 20L, Anion Gap 14, Blood Urea Nitrogen 16, Creatinine 0.90, Estimat Glomerular Filtration Rate 67, BUN/Creatinine Ratio 18, Glucose Level 170H, Calcium Level 9.3, Corrected Calcium 9.5, Magnesium Level 1.6, Total Bilirubin 0.5, Aspartate Amino Transf (AST/SGOT) 9, Alanine Aminotransferase (ALT/SGPT) 7, Alkaline Phosphatase 99, Myoglobin 40.7, Troponin I < 0.028, Total Protein 7.4, Albumin 3.8, Lipase 12 06/25/22 08:01: Urine Color ORANGE, Urine Clarity CLEAR, Urine pH 6.0, Urine Specific [place] 1.025H, Urine Protein NEGATIVE, Urine Glucose (UA) NEGATIVE, Urine Ketones NEGATIVE, Urine Nitrite POSITIVEH, Urine Bilirubin NEGATIVE, Urine Urobilinogen 0.2, Urine Leukocyte Esterase 2+H, Urine RBC (Auto) NEGATIVE, Urine RBC NONE, Urine WBC 50-100H, Urine Squamous Epithelial Cells 0-2, Urine Crystals NONE, Urine Bacteria LARGEH, Urine Casts NONE, Urine Mucus NEGATIVE, Urine Culture Indicated YES, Urine Opiates Screen NEGATIVE, Urine Oxycodone Screen NEGATIVE, Urine Methadone Screen NEGATIVE, Urine Propoxyphene Screen NEGATIVE, Urine Barbiturates Screen NEGATIVE, Ur Tricyclic Antidepressants Screen NEGATIVE, Urine Phencyclidine Screen NEGATIVE, Urine Amphetamines Screen NEGATIVE, Urine Methamphetamines Screen NEGATIVE, Urine Benzodiazepines Screen NEGATIVE, Urine Cocaine Screen NEGATIVE, Urine Cannabinoids Screen POSITIVEH 06/25/22 10:05: Troponin I 0.120H 06/25/22 13:30: Lactic Acid Level 1.45 Laboratory Tests 06/25/22 06:42 A/P-Cardiology Assessment/Admission Diagnosis NSTEMI SSS, h/o PAF, currently exhibiting wandering atrial pacemaker and mod bradycardia - echo on 06-25-22: LVEF 55-60%, grade 2 rivero dysfunction, mod to sev biatrial enlargement, mod MAC, mod thickening of mitral leaflets, mild MR, AoV sclerosis w/o stenosis, PASP 35-40 mmHg Chronic tobacco use (smokes) Severe anemia of undetermined etiolog - Dr Dueñas managing Discussion and Recomendations * complex management due to multiple comorbidities * treat with DAPT and enoxaparin * card cath recommended; discussed in detail, including alternative; she understands and provides informed consent; will schedule for tomorrow * 2 U PRBC in effort to restore hgb to 10 or greater * we recommend full w/u and treatment of anemia * add PPI * monitor labs * advised to refrain from smoking TREMAINE WORLEY MD FACP FAC CCDS Jun 25, 2022 16:09
[2022-06-25 16:23] VITALS: BP 132/63
[2022-06-25 16:45] VITALS: BP 133/56
[2022-06-25] MEDS ORDERED: FUROSEMIDE 40 MG/4 ML INJ (LASIX) IVP ONE ×2 (18:00→21:00)
[2022-06-25 18:35] VITALS: BP 130/69
[2022-06-25] MEDS: DOCUSATE SODIUM 100 MG (COLACE) CAP PO SCH (20:01)
[2022-06-25] MEDS: buPROPion SR 150 MG (WELLBUTRIN SR) TAB PO SCH (20:02)
[2022-06-25] MEDS: SENNOSIDES 8.6 MG (SENOKOT) TAB PO SCH (20:43)
[2022-06-25 20:50] LABS: HEMOGLOBIN 7.8 g/dL (11.5-16.0)
[2022-06-25 21:37] VITALS: BP 150/49
[2022-06-25 21:52] VITALS: BP 152/69
[2022-06-25] MEDS: ENOXAPARIN 100 MG/1 ML (LOVENOX) SYR SC SCH (22:30)
[2022-06-26 03:46] LABS: BASOPHILS % (AUTO) 1 % (0-10); EOSINOPHILS # (AUTO) 0.1 10^3/uL (0.0-0.3); EOSINOPHILS % (AUTO) 1 % (0-10); HEMATOCRIT 30 % (35-52); HEMOGLOBIN 9.2 g/dL (11.5-16.0); LYMPHOCYTES # (AUTO) 1.9 10^3/uL (1.0-4.0); LYMPHOCYTES % (AUTO) 24 % (12-44); MEAN CORPUSCULAR HEMOGLOBIN 24 pg (25-34); MEAN CORPUSCULAR HGB CONC 31 g/dL (32-36); MEAN CORPUSCULAR VOLUME 80 fL (80-99); MEAN PLATELET VOLUME 8.8 fL (9.0-12.2); MONOCYTES # (AUTO) 0.7 10^3/uL (0.0-1.0); MONOCYTES % (AUTO) 8 % (0-12); NEUTROPHILS # (AUTO) 5.1 10^3/uL (1.8-7.8); NEUTROPHILS % (AUTO) 66 % (42-75); PLATELET COUNT 373 10^3/uL (130-400); WHITE BLOOD COUNT 7.8 10^3/uL (4.3-11.0)
[2022-06-26 04:09] LABS: ALANINE AMINOTRANSFERASE < 6 U/L (0-55); ALBUMIN 3.4 GM/DL (3.2-4.5); ALKALINE PHOSPHATASE 85 U/L (40-136); BILIRUBIN,TOTAL 1.1 MG/DL (0.1-1.0); BUN/CREATININE RATIO 23; CALCIUM 8.8 MG/DL (8.5-10.1); CARBON DIOXIDE 23 MMOL/L (21-32); CHLORIDE 106 MMOL/L (98-107); CHOLESTEROL 137 MG/DL (< 200); CREATININE SERUM 0.86 MG/DL (0.60-1.30); GFR ESTIMATED 70; GLUCOSE 131 MG/DL (70-105); HDL CHOLESTEROL 53 MG/DL (40-60); MAGNESIUM 1.6 MG/DL (1.6-2.4); PHOSPHORUS 3.7 MG/DL (2.3-4.7); POTASSIUM 3.5 MMOL/L (3.6-5.0); SODIUM 142 MMOL/L (135-145); TOTAL PROTEIN 6.6 GM/DL (6.4-8.2); TRIGLYCERIDES 71 MG/DL (<150); VLDL CHOLESTEROL 14 MG/DL (5-40)
[2022-06-26] MEDS: POTASSIUM CL 10MEQ/50ML IVPB 50 ML IV SCH ×3 (05:09→06:18)
[2022-06-26] MEDS: MAGNESIUM 1 GM/100 ML IVPB 100 ML IV SCH ×3 (05:09→06:18)
[2022-06-26] MEDS: NS IV 1000 ML 1,000 ML IV SCH ×4 (05:10→23:15)
[2022-06-26] MEDS: KCL 20 MEQ TAB (K-DUR) PO SCH (05:10)
--- NOTE | 2022-06-26 06:08 | Progress Note - Hospitalist ---
Subjective HPI/CC On Admission Date Seen by Provider: Jun 26, 2022 Time Seen by Provider: 11:00 Chief complaint: NSTEMI HPI: This is a 77-year-old female clinic patient of [facility] and cardiology in [place] who presented to the ER with chest pain found to have elevated troponin on second recheck troponin. Patient stopped smoking 2 weeks ago. Cardiology has been consulted. UTI diagnosed and Rocephin initiated. Patient has been hallucinating per family members. Subjective/Events-last exam Patient doing really well Cardiac catheterization will be done today Right hip pain is an issue Checked meds and labs Review of Systems General: Fatigue, Malaise Musculoskeletal: leg pain Focused Exam Lactate Level 06/25/22 13:30: Lactic Acid Level 1.45 Objective Exam Vital Signs Vital Signs Date Time Temp Pulse Resp B/P (MAP) Pulse Ox O2 Delivery O2 Flow Rate FiO2 06/26/22 13:30 46 16 142/59 (86) 96 Room Air 06/26/22 13:15 36.1 Capillary Refill : Less Than 3 Seconds General Appearance: No Apparent Distress, WD/WN, Chronically ill Respiratory: Lungs Clear, Normal Breath Sounds Cardiovascular: Regular Rate, Rhythm Neurologic/Psychiatric: Alert, Oriented x3, No Motor/Sensory Deficits, Normal Mood/Affect Results/Procedures Lab Laboratory Tests 06/25/22 20:42 06/26/22 03:22 Patient resulted labs reviewed. Assessment/Plan Assessment and Plan Assess & Plan/Chief Complaint Assessment: NSTEMI Chronic atrial fibrillation Recent former smoker quit 2 weeks ago Hypertension Hyperlipidemia Presumed COPD UTI Recent hallucinations and paranoia Right hip pain scheduled for replacement by Dr. Arce in 2 weeks Plan: ICU Rocephin Cardiology consult appreciated Cardiac cath today ROSEANN LARA DO Jun 26, 2022 06:08
[2022-06-26] MEDS: PANTOPRAZOLE 40 MG (PROTONIX) TAB PO SCH (08:29)
[2022-06-26] MEDS: cefTRIAXone 1 GM PRE-MIX 50 ML IV SCH (08:29)
[2022-06-26] MEDS: buPROPion SR 150 MG (WELLBUTRIN SR) TAB PO SCH ×2 (08:29→20:02)
[2022-06-26] MEDS: GABAPENTIN 300 MG (NEURONTIN) CAP PO SCH ×3 (08:30→20:02)
[2022-06-26] MEDS: SENNOSIDES 8.6 MG (SENOKOT) TAB PO SCH ×2 (08:30→20:02)
[2022-06-26] MEDS: DOCUSATE SODIUM 100 MG (COLACE) CAP PO SCH ×2 (08:30→20:02)
[2022-06-26] MEDS ORDERED: CLOPIDOGREL 75 MG (PLAVIX) TABLET PO SCH (09:00)
[2022-06-26] MEDS ORDERED: ASPIRIN 81 MG CHEW (CHILDREN'S ASA) PO SCH (09:00)
--- NOTE | 2022-06-26 09:00 | Tele-ICU Progress Note ---
Subjective Date Seen by a Provider: Jun 26, 2022 Time Seen by a Provider: 08:59 Subjective/Events-last exam (Tele-ICU Physician , Progress Note ) Service provided via interactive audio and video telecommunications E-CARE system to a patient admitted to ICU bed in [facility]. Available chart/ vitals / labs / Images reviewed Video assessment done using teleICU camera, rest of exam as per RN Discussed with RN Events overnight : Afebrile hemodynamically stable Respiratory - I/O = Drips: [id number] Pressors- no Consultants: Hospital course: Patient is seen today due to persistent and new A/P CP - planed for cath - AC with lauren 90 q12 - ECHO EF 55% grII dst dsfn,mild MR Pum HTN -RVSP 40 mm ECHO 05/2022 SSS, h/o PAF, currently exhibiting wandering atrial pacemaker and mod bradyca rdia - in SUNUS now Anemia of undetermined etiology - stable -s/p 2 U PRBC 06/25/22 UTI with E coli - contr recephin periph , (Central Line Necessity Reviewed) Mccarthy: + OG: Nutrition: Analgesia: Anxiety/ delirium VTE Prophylaxis: lauren 90 q12 Stress Ulcer Prophylaxis: ppi Plans in collaboration with bedside consultants and IM MDs. Discussed with RN to reach out if any questions or concerns A total of 22 minutes of critical care time was devoted to this patient today, required to treat and/or prevent further deterioration of critical care condition ( as above ) . I am remotely monitoring this patient from another state. I am unable to do the bedside exam, and history/physical and pertinent information is taken from other notes in the computer and bedside staff. Sepsis Event Evaluation Height, Weight, BMI Height: '" Weight: lbs. oz. kg; 31.62 BMI Method: Focused Exam Lactate Level 06/25/22 13:30: Lactic Acid Level 1.45 Exam Exam Patient acknowledged, consented, and participated in this virtual visit which was conducted using real time audio/video Vital Signs Date Time Temp Pulse Resp B/P (MAP) Pulse Ox O2 Delivery O2 Flow Rate FiO2 06/26/22 08:00 99 Room Air 06/26/22 08:00 51 17 134/80 (98) 97 Room Air 06/26/22 07:29 36.4 06/26/22 07:00 49 18 134/58 (83) 96 Room Air 06/26/22 07:00 48 06/26/22 06:00 50 25 127/48 (74) 96 Room Air 06/26/22 05:00 48 18 151/56 (87) Room Air 06/26/22 04:00 48 16 145/59 (87) Room Air 06/26/22 04:00 98 Room Air 06/26/22 03:00 52 17 141/56 (84) 94 Room Air 06/26/22 02:00 49 19 140/53 (82) 94 Room Air 06/26/22 01:00 65 18 159/68 (98) 94 Room Air 06/26/22 01:00 60 06/26/22 00:00 52 22 146/57 (86) 97 Room Air 06/25/22 23:59 98 Room Air 06/25/22 23:00 68 15 144/69 (94) 96 Room Air 06/25/22 22:00 66 20 150/62 (91) 99 Room Air 06/25/22 21:52 36.6 66 26 152/69 98 Room Air 06/25/22 21:37 36.6 47 14 150/49 95 Room Air 06/25/22 21:00 52 21 140/55 (83) 98 Room Air 06/25/22 20:24 98 Room Air 06/25/22 20:22 36.9 06/25/22 20:00 52 22 130/50 (76) 97 Room Air 06/25/22 19:00 60 06/25/22 19:00 54 22 136/51 (79) 96 Room Air 06/25/22 18:35 36.4 55 16 130/69 98 Room Air 06/25/22 18:00 61 22 105/44 (64) 98 Room Air 06/25/22 17:00 55 17 154/60 (91) 96 Room Air 06/25/22 16:45 36.5 53 16 133/56 96 Room Air 06/25/22 16:23 36.5 53 18 132/63 96 Room Air 06/25/22 16:00 55 18 118/40 (66) 97 Room Air 06/25/22 15:15 35.9 51 99 06/25/22 15:00 54 10 149/58 (88) 99 Room Air 06/25/22 14:00 51 15 145/57 (86) 99 Room Air 06/25/22 13:30 52 18 147/53 (84) 97 Room Air 06/25/22 13:23 52 06/25/22 12:55 52 23 138/62 92 I & O 06/26/22 07:00 Intake Total 1950 ml Output Total 1785 ml Balance 165 ml Height & Weight Height: '" Weight: lbs. oz. kg; 31.62 BMI Method: General Appearance: No Apparent Distress, Chronically ill HEENT: PERRL/EOMI, Normal ENT Inspection, Pharynx Normal, Moist Mucous Membranes Neck: Full Range of Motion, Normal Inspection, Non Tender Respiratory: Chest Non Tender, Lungs Clear, Normal Breath Sounds, No Accessory Muscle Use, No Respiratory Distress Cardiovascular: No Edema, No Gallop, No JVD, No Murmur, Normal Peripheral Pulses, Irregularly Irregular Capillary Refill: Less Than 3 Seconds Extremity: Normal Capillary Refill, Normal Inspection, Normal Range of Motion, Non Tender, No Calf Tenderness, No Pedal Edema Neurologic/Psychiatric: Alert, Oriented x3, No Motor/Sensory Deficits, Normal Mood/Affect Skin: Normal Color, Warm/Dry Lymphatic: No Adenopathy Results Lab Laboratory Tests 06/25/22 06:42 06/25/22 20:42 06/26/22 03:22 Assessment/Plan Assessment/Plan 1 RAJESH HURLEY MD Jun 26, 2022 09:00
[2022-06-26] MEDS: ENOXAPARIN 100 MG/1 ML (LOVENOX) SYR SC SCH (11:00)
[2022-06-26] MEDS ORDERED: fentaNYL INJ 100 MCG/2 ML AMP ONE (11:13)
[2022-06-26] MEDS ORDERED: LIDOCAINE 1% INJ 30 ML (XYLOCAINE) VIAL ONE (11:13)
[2022-06-26] MEDS ORDERED: MIDAZOLAM 5 MG/5 ML (VERSED) VIAL ONE (11:13)
[2022-06-26] MEDS ORDERED: NS IV 1000 ML 0 ML ONE (11:14)
[2022-06-26] MEDS ORDERED: HEParin (CATH LAB) 2,000 ML IV ONE (11:14)
--- NOTE | 2022-06-26 13:04 | Progress Note - Cardiology ---
Cardiology SOAP Progress Note Subjective: No cp or palp or syncope or shortness of breath since adm Does not a bout of palp just prior to presentation to this hosp Denies n/v/d Denies swelling Mild gen malaise, improving No groin or leg discomfort Objective: I&O/Vital Signs 06/26/22 06/26/22 06/26/22 06/26/22 01:00 01:00 02:00 03:00 Pulse 60 65 49 52 Resp 18 19 17 B/P (MAP) 159/68 (98) 140/53 (82) 141/56 (84) Pulse Ox 94 94 94 O2 Delivery Room Air Room Air Room Air 06/26/22 06/26/22 06/26/22 06/26/22 04:00 04:00 05:00 06:00 Pulse 48 48 50 Resp 16 18 25 B/P (MAP) 145/59 (87) 151/56 (87) 127/48 (74) Pulse Ox 98 96 O2 Delivery Room Air Room Air Room Air Room Air 06/26/22 06/26/22 06/26/22 06/26/22 07:00 07:00 07:29 08:00 Temp 36.4 Pulse 48 49 51 Resp 18 17 B/P (MAP) 134/58 (83) 134/80 (98) Pulse Ox 96 97 O2 Delivery Room Air Room Air 06/26/22 06/26/22 06/26/22 06/26/22 08:00 09:00 10:00 11:00 Pulse 51 50 52 Resp 18 24 14 B/P (MAP) 139/65 (89) 156/62 (93) 154/64 (94) Pulse Ox 99 99 94 95 O2 Delivery Room Air Room Air Room Air Room Air 06/26/22 06/26/22 11:56 12:00 Temp 36.5 Pulse Ox 99 O2 Delivery Room Air 06/26/22 00:00 Intake Total 550 ml Output Total 350 ml Balance 200 ml Constitutional: AAO x 3, well-developed, well-nourished Respiratory: No accessory muscle use; other (good, bilat air entry) Cardiovascular: regular rate-rhythm, S1 and S2, systolic murmur (soft LATRELL at card base) Gastrointestional: No tender; soft; No guarding, No rebound; audible bowel sounds Extremities: No clubbing, No cyanosis, No significant edema Neurologic/Psychiatric: oriented x 3, other (moves all limbs equally) Skin: normal color, warm/dry; No rash on exposed areas, No ulcerations on exposed areas Results/Procedures: Labs Laboratory Tests 06/25/22 13:30: Lactic Acid Level 1.45 06/25/22 20:42: Hemoglobin 7.8L, Hematocrit 26L 06/26/22 03:22: Hemoglobin 9.2L, Hematocrit 30L, White Blood Count 7.8, Red Blood Count 3.77L, Mean Corpuscular Volume 80, Mean Corpuscular Hemoglobin 24L, Mean Corpuscular Hemoglobin Concent 31L, Red Cell Distribution Width 15.5H, Platelet Count 373, Mean Platelet Volume 8.8L, Immature Granulocyte % (Auto) 1, Neutrophils (%) (Auto) 66, Lymphocytes (%) (Auto) 24, Monocytes (%) (Auto) 8, Eosinophils (%) (Auto) 1, Basophils (%) (Auto) 1, Neutrophils # (Auto) 5.1, Lymphocytes # (Auto) 1.9, Monocytes # (Auto) 0.7, Eosinophils # (Auto) 0.1, Basophils # (Auto) 0.0, Immature Granulocyte # (Auto) 0.0, Sodium Level 142, Potassium Level 3.5L, Chloride Level 106, Carbon Dioxide Level 23, Anion Gap 13, Blood Urea Nitrogen 20H, Creatinine 0.86, Estimat Glomerular Filtration Rate 70, BUN/Creatinine Ratio 23, Glucose Level 131H, Calcium Level 8.8, Corrected Calcium 9.3, Phosphorus Level 3.7, Magnesium Level 1.6, Total Bilirubin 1.1H, Aspartate Amino Transf (AST/SGOT) 13, Alanine Aminotransferase (ALT/SGPT) < 6, Alkaline Phosphatase 85, Troponin I 0.060H, Total Protein 6.6, Albumin 3.4, Triglycerides Level 71, Cholesterol Level 137, LDL Cholesterol Direct 72, VLDL Cholesterol 14, HDL Cholesterol 53 Microbiology 06/25/22 MRSA Screen - Final, Complete MRSA not isolated 06/25/22 Urine Culture - Preliminary, Resulted Escherichia coli Laboratory Tests 06/25/22 06:42 06/25/22 20:42 06/26/22 03:22 A/P: Assessment: Mild troponin elevation - type 2 MS probably due to transient PAF with RVR prior to presentation - Card cath on 06/26/22: minimal cor plaque, no obstructive disease, LVEF 60- 65%, normal coronary flow, LVEDP 13-14 mmHg SSS, h/o PAF, currently exhibiting wandering atrial pacemaker and mod bradycardia - echo on 06-25-22: LVEF 55-60%, grade 2 rivero dysfunction, mod to sev biatrial enlargement, mod MAC, mod thickening of mitral leaflets, mild MR, AoV sclerosis w/o stenosis, PASP 35-40 mmHg Chronic tobacco use (smokes) - advised immediate and complete cessation Severe anemia of undetermined etiolog - Dr Dueñas managing Plan: * D/c DAPT (given no significant CAD and given marked anemia despite transfusi ons) * Continue apixaban if approved by Dr Dueñas * monitor labs * advised to refrain from smoking * F/u w/u and treatment of anemia is advised * Outpt f/u is advised TREMAINE WORLEY MD FACP [facility] CCDS Jun 26, 2022 13:04
[2022-06-26] MEDS ORDERED: PATIENT MAY USE OWN MEDS, ALL PO SCH (13:15)
[2022-06-26 14:51] LABS: HEMOGLOBIN 9.4 g/dL (11.5-16.0); MEAN PLATELET VOLUME 8.8 fL (9.0-12.2); WHITE BLOOD COUNT 7.5 10^3/uL (4.3-11.0)
[2022-06-26 15:07] LABS: CALCIUM 8.5 MG/DL (8.5-10.1); CREATININE SERUM 0.81 MG/DL (0.60-1.30); POTASSIUM 4.5 MMOL/L (3.6-5.0)
[2022-06-26] MEDS ORDERED: WATER (STERILE) FOR INJECTION 10 ML ONE (16:56)
--- NOTE | 2022-06-26 18:37 | CARDIAC CATHETERIZATION ---
DATE OF SERVICE: 06/26/2022 CARDIAC CATHETERIZATION INDICATION: The patient is a 77-year-old lady who was hospitalized with chest discomfort. Troponin was mildly elevated. Acute non-ST elevation myocardial infarction was suspected. Cardiac catheterization was recommended. Informed consent was obtained. DESCRIPTION OF PROCEDURE: She was brought to the cardiac catheterization laboratory in the fasting state. Right groin was prepared and draped in the usual sterile fashion. A 1% lidocaine used for local anesthesia. Modified Seldinger technique was used to advance a 5-Serbian sheath into the right femoral artery, 5-Serbian JL$ catheter for left coronary angiography, 5-Serbian JR4 catheter for right coronary angiography, 5-Serbian pigtail catheter was used for left heart catheterization, left ventricular angiography. All catheter exchanges were made over an exchange length wire. This was because there appeared to be a small contained dissection at the tip of the sheath within the right common femoral artery. The tip of the sheath was subsequently pulled away from the lesion and all catheter exchanges were made over an exchange length wire. At the end of the procedure, we used a pigtail catheter to carry out abdominal aortic angiography with runoff down to the level of the distal superficial femoral arteries on both sides. The sheath was then removed over the wire and the wire was removed as well. Manual pressure was used to achieve hemostasis. She tolerated the procedure well. HEMODYNAMICS: Left ventricular end diastolic pressure following coronary angiography was 14 mmHg. There was no significant pressure gradient on pullback across the aortic valve. Ascending aortic pressure was 95/52 with a mean of 71 mmHg. CORONARY ANGIOGRAPHY: Left main coronary artery is free of significant disease. Left anterior descending and left circumflex arteries have mild plaques. Right coronary artery is dominant. It has mild plaque. No significant obstructive disease is seen. Flow through the vessels is normal. There is normal myocardial flush. LEFT VENTRICULAR ANGIOGRAPHY: Left ventricular angiography was carried out in the right anterior oblique projection. Global left ventricular systolic function is normal. No regional wall motion abnormalities are seen. Left ventricular ejection fraction is 60-65%. INFRARENAL ABDOMINAL AORTIC ANGIOGRAPHY WITH RUNOFF: Infrarenal abdominal aortic angiography with runoff did not indicate any infrarenal abdominal aortic aneurysm. The aortoiliac bifurcation is intact and this does not exhibit significant disease. The common iliacs and the external and internal iliacs on both sides are intact and free of significant disease. The common femoral and the deep and superficial femoral arteries on both sides are intact and free of significant disease. There does not appear to be any obstructive dissection or lesion in the arterial circulation of the right lower limb in the iliac and femoral arterial segments. CONCLUSIONS: 1. Angiographically, minimal coronary artery disease. 2. Normal global left ventricular systolic function with ejection fraction of 60-65%. 3. Left ventricular end-diastolic pressure at the top limit of normal to mildly elevated (measured at 13-14 mmHg). DISCUSSION AND RECOMMENDATIONS: Based on results of the study, it appears appropriate to continue a conservative approach. Her minimal troponin elevation may have been due to a bout of atrial fibrillation with rapid ventricular response of which she has a history, but which was not documented at the time of admission. Previous cardiac regimen is being continued. Outpatient followup is advised. Job ID: [id number] DocumentID: [id number] Dictated Date: 06/26/2022 12:57:04 Repairer Date: 06/26/2022 18:35:00 Dictated By: TREMAINE WORLEY MD; MAIKEL; CIERRAP; FACC; RICARDO
[2022-06-26] MEDS: APIXABAN 5 MG (ELIQUIS) TABLET PO SCH (20:02)
[2022-06-27] MEDS: POTASSIUM CL 10MEQ/50ML IVPB 50 ML IV SCH (06:11)
[2022-06-27] MEDS: MAGNESIUM 1 GM/100 ML IVPB 100 ML IV SCH (06:11)
[2022-06-27] MEDS: KCL 20 MEQ TAB (K-DUR) PO SCH (06:11)
[2022-06-27] MEDS: PANTOPRAZOLE 40 MG (PROTONIX) TAB PO SCH (08:35)
[2022-06-27] MEDS: GABAPENTIN 300 MG (NEURONTIN) CAP PO SCH (08:35)
[2022-06-27] MEDS: DOCUSATE SODIUM 100 MG (COLACE) CAP PO SCH (08:35)
[2022-06-27] MEDS: SENNOSIDES 8.6 MG (SENOKOT) TAB PO SCH (08:35)
[2022-06-27] MEDS: APIXABAN 5 MG (ELIQUIS) TABLET PO SCH (08:35)
[2022-06-27] MEDS: buPROPion SR 150 MG (WELLBUTRIN SR) TAB PO SCH (08:35)
[2022-06-27] MEDS: cefTRIAXone 1 GM PRE-MIX 50 ML IV SCH (08:36)
--- NOTE | 2022-06-27 09:01 | Progress Note - Cardiology ---
Cardiology SOAP Progress Note Subjective: Sitting up in recliner at the bedside Oriented to self and place Conversation inappropriate to situation at times requiring redirection Objective: I&O/Vital Signs 06/26/22 06/26/22 06/26/22 06/26/22 21:05 22:00 23:00 23:59 Pulse 58 51 71 Resp 35 13 16 B/P (MAP) 91/66 (74) 151/59 (89) 163/78 (106) Pulse Ox 95 95 98 O2 Delivery Room Air Room Air Room Air Room Air 06/27/22 06/27/22 06/27/22 06/27/22 00:00 01:00 01:00 02:00 Pulse 68 67 67 69 Resp 16 25 25 B/P (MAP) 141/61 (87) 141/67 (91) 158/76 (103) Pulse Ox 97 98 98 O2 Delivery Room Air Room Air Room Air 06/27/22 06/27/22 06/27/22 06/27/22 03:00 04:00 04:00 05:00 Pulse 57 53 57 Resp 21 19 25 B/P (MAP) 148/75 (99) 140/60 (86) 147/85 (105) Pulse Ox 96 98 96 99 O2 Delivery Room Air Room Air Room Air Room Air 06/27/22 06/27/22 06/27/22 06/27/22 06:00 07:00 07:03 08:06 Pulse 51 67 68 Resp 18 15 B/P (MAP) 151/61 (91) 173/82 (112) Pulse Ox 96 96 96 O2 Delivery Room Air Room Air Room Air O2 Flow Rate 0.00 06/27/22 08:44 Temp 36.8 06/26/22 23:59 Intake Total 275 ml Output Total 1200 ml Balance -925 ml Constitutional: AAO x 3 (conversation inappropriate to situation at times - requires redirection), well-developed, well-nourished Respiratory: No accessory muscle use; other (good, bilat air entry) Cardiovascular: regular rate-rhythm, S1 and S2, systolic murmur (soft LATRELL at card base) Gastrointestional: No tender; soft; No guarding, No rebound; audible bowel sounds Extremities: No clubbing, No cyanosis, No significant edema Neurologic/Psychiatric: oriented x 3, other (moves all limbs equally) Skin: normal color, warm/dry; No rash on exposed areas, No ulcerations on exposed areas Results/Procedures: Labs Laboratory Tests 06/26/22 14:38: White Blood Count 7.5, Red Blood Count 3.79L, Hemoglobin 9.4L, Hematocrit 30L, Mean Corpuscular Volume 80, Mean Corpuscular Hemoglobin 25, Mean Corpuscular Hemoglobin Concent 31L, Red Cell Distribution Width 15.7H, Platelet Count 320, Mean Platelet Volume 8.8L, Percent Immature Platelet Fraction 1.3, Sodium Level 137, Potassium Level 4.5, Chloride Level 106, Carbon Dioxide Level 16L, Anion Gap 15H, Blood Urea Nitrogen 16, Creatinine 0.81, Estimat Glomerular Filtration Rate 76, BUN/Creatinine Ratio 20, Glucose Level 99, Calcium Level 8.5 Microbiology 06/25/22 MRSA Screen - Final, Complete MRSA not isolated 06/25/22 Blood Culture - Preliminary, Resulted No growth 06/25/22 Urine Culture - Preliminary, Resulted Escherichia coli Laboratory Tests 06/25/22 20:42 06/26/22 03:22 06/26/22 14:38 A/P: Assessment: Mild troponin elevation - type 2 AL probably due to transient PAF with RVR prior to presentation - Card cath on 06/26/22: minimal cor plaque, no obstructive disease, LVEF 60- 65%, normal coronary flow, LVEDP 13-14 mmHg SSS, h/o PAF, currently exhibiting wandering atrial pacemaker and mod bradycardia - echo on 06-25-22: LVEF 55-60%, grade 2 rivero dysfunction, mod to sev biatrial enlargement, mod MAC, mod thickening of mitral leaflets, mild MR, AoV sclerosis w/o stenosis, PASP 35-40 mmHg Chronic tobacco use (smokes) - advised immediate and complete cessation Severe anemia of undetermined etiolog - Dr Dueñas managing Plan: * H/H is stable - managed by medical services * Continue apixaban if approved by Dr Dueñas * monitor labs * advised to refrain from smoking * F/u w/u and treatment of anemia is advised * Outpt f/u is advised JANIS MOSES Jun 27, 2022 09:01
--- NOTE | 2022-06-27 09:30 | Tele-ICU Progress Note ---
Subjective Date Seen by a Provider: Jun 27, 2022 Time Seen by a Provider: 09:30 Subjective/Events-last exam (Tele-ICU Physician , Progress Note ) Service provided via interactive audio and video telecommunications E-CARE system to a patient admitted to ICU bed in [facility]. Available chart/ vitals / labs / Images reviewed Video assessment done using teleICU camera, rest of exam as per RN Discussed with RN Events overnight : Afebrile hemodynamically stable Respiratory - ra I/O = Drips: [id number] Pressors- no Consultants: Hospital course: Patient is seen today due to persistent and new A/P CP -s/p ath - no CAD - AC with lauren 90 q12 - ECHO EF 55% grII dst dsfn,mild MR COnfusion, agitation - as per PCP , ? baseline vs psych vs delirium TME Pum HTN -RVSP 40 mm ECHO 05/2022 SSS, h/o PAF, currently exhibiting wandering atrial pacemaker and mod bradycardia - in SUNUS now -ac with eliquis Anemia of undetermined etiology - stable- REFUSED BLOOD WORK TODAY -s/p 2 U PRBC 06/25/22 - on eliquis UTI with E coli - contr recephin periph , (Central Line Necessity Reviewed) Mccarthy: + to gewrt out OG: Nutrition: Analgesia: Anxiety/ delirium VTE Prophylaxis: eliquis Stress Ulcer Prophylaxis: ppi Plans in collaboration with bedside consultants and IM MDs. Discussed with RN to reach out if any questions or concerns A total of 22 minutes of critical care time was devoted to this patient today, required to treat and/or prevent further deterioration of critical care condition ( as above ) . Sepsis Event Evaluation Height, Weight, BMI Height: '" Weight: lbs. oz. kg; 31.73 BMI Method: Focused Exam Lactate Level 06/25/22 13:30: Lactic Acid Level 1.45 Exam Exam Patient acknowledged, consented, and participated in this virtual visit which was conducted using real time audio/video Vital Signs Date Time Temp Pulse Resp B/P (MAP) Pulse Ox O2 Delivery O2 Flow Rate FiO2 06/27/22 08:44 36.8 06/27/22 08:06 96 Room Air 0.00 06/27/22 07:45 96 Room Air 06/27/22 07:03 68 06/27/22 07:00 67 15 173/82 (112) 96 Room Air 06/27/22 06:00 51 18 151/61 (91) 96 Room Air 06/27/22 05:00 57 25 147/85 (105) 99 Room Air 06/27/22 04:00 53 19 140/60 (86) 96 Room Air 06/27/22 04:00 98 Room Air 06/27/22 03:00 57 21 148/75 (99) 96 Room Air 06/27/22 02:00 69 25 158/76 (103) 98 Room Air 06/27/22 01:00 67 06/27/22 01:00 67 25 141/67 (91) 98 Room Air 06/27/22 00:00 68 16 141/61 (87) 97 Room Air 06/26/22 23:59 98 Room Air 06/26/22 23:00 71 16 163/78 (106) 95 Room Air 06/26/22 22:00 51 13 151/59 (89) 95 Room Air 06/26/22 21:05 58 35 91/66 (74) Room Air 06/26/22 20:00 36.0 06/26/22 20:00 67 16 153/60 (91) 98 Room Air 06/26/22 19:56 98 Room Air 06/26/22 19:08 Room Air 06/26/22 19:00 53 06/26/22 19:00 53 37 128/102 (111) 94 Room Air 06/26/22 18:00 53 20 171/76 (107) 91 Room Air 06/26/22 17:00 48 136/59 (84) 98 Room Air 06/26/22 16:00 50 152/62 (92) 95 Room Air 06/26/22 16:00 98 Room Air 06/26/22 16:00 35.7 06/26/22 15:00 50 151/58 (89) 98 Room Air 06/26/22 14:30 48 145/58 (87) 97 Room Air 06/26/22 14:00 46 138/61 (86) 97 Room Air 06/26/22 13:45 47 145/59 (87) 93 Room Air 06/26/22 13:30 46 16 142/59 (86) 96 Room Air 06/26/22 13:15 36.1 48 16 142/62 (88) 95 Room Air 06/26/22 13:00 46 06/26/22 12:00 99 Room Air 06/26/22 11:56 36.5 06/26/22 11:00 52 14 154/64 (94) 95 Room Air 06/26/22 10:00 50 24 156/62 (93) 94 Room Air I & O 06/27/22 07:00 Intake Total 925 ml Output Total 2250 ml Balance -1325 ml Height & Weight Height: '" Weight: lbs. oz. kg; 31.73 BMI Method: General Appearance: No Apparent Distress, WD/WN, Chronically ill HEENT: PERRL/EOMI, Normal ENT Inspection, Pharynx Normal, Moist Mucous Membranes Neck: Full Range of Motion, Normal Inspection, Non Tender Respiratory: Lungs Clear, Normal Breath Sounds Cardiovascular: Regular Rate, Rhythm Capillary Refill: Less Than 3 Seconds Extremity: Normal Capillary Refill, Normal Inspection, Normal Range of Motion, Non Tender, No Calf Tenderness, No Pedal Edema Neurologic/Psychiatric: Alert, Oriented x3, No Motor/Sensory Deficits, Normal Mood/Affect Skin: Normal Color, Warm/Dry Lymphatic: No Adenopathy Results Lab Laboratory Tests 06/25/22 20:42 06/26/22 03:22 06/26/22 14:38 Assessment/Plan Assessment/Plan 1 RAJESH HURLEY MD Jun 27, 2022 09:30
[2022-06-27] MEDS: NS IV 1000 ML 1,000 ML IV SCH (09:42)
[2022-06-27] MEDS ORDERED: PANT40TA52 PO ×2 (10:50→13:16)
[2022-06-27] MEDS ORDERED: APIX5TAB PO ×2 (10:50→13:16)
[2022-06-27] MEDS ORDERED: CEFD300C3 PO ×2 (10:50→13:16)
[2022-06-27] MEDS ORDERED: BUPR-105 PO ×2 (10:50→13:16)
--- NOTE | 2022-06-27 10:51 | Physical Therapy Evaluation ---
PT Evaluation-General Medical Diagnosis Admission Date Jun 25, 2022 at 11:34 Medical Diagnosis: chest pain/elevated troponin Onset Date: Jun 25, 2022 Therapy Diagnosis Therapy Diagnosis: debility/weakness Precautions Precautions/Isolations: Fall Prevention, Standard Precautions Referral Physician: Leana Reason for Referral: Evaluation/Treatment Medical History Pertinent Medical History: Atrial Fib Additional Medical History bilateral LE TKR Current History EMS secondary to CP (s/p heart cath 06/26/22) Reviewed History: Yes Social History Patient is very confused. Unable to assess. Prior Prior Level of Function SCALE: Activities may be completed with or without assistive devices. 9-Tkqvuppewa-ehwmzer completes the activity by him/herself with no assistance from a helper. 5-Set-up or Clean-up Assistance-helper sets up or cleans up; patient completes activity. [place] assists only prior to or following the activity. 4-Supervision or Touching Assistance-helper provides verbal cues and/or touching/steadying and/or contact guard assistance as patient completes activity. Assistance may be provided throughout the activity or intermittently. 3-Partial/Moderate Assistance-helper does LESS THAN HALF the effort. [place] lifts, holds or supports trunk or limbs, but provides less than half the effort. 2-Substantial/Maximal Assistance-helper does MORE THAN HALF the effort. [place] lifts or holds trunk or limbs and provides more than half the effort. 0-Jzhbumcmv-pxhlkc does ALL the effort. Patient does none of the effort to complete the activity. Or, the assistance of 2 or more helpers is required for the patient to complete the activity. If activity was not attempted, code reason: 7-Patient Refused. 9-Not Applicable-not attempted and the patient did not perform the activity before the current illness, exacerbation or injury. 10-Not Attempted due to Environmental Limitations-(lack of equipment, weather restraints, etc.). 88-Not Attempted due to Medical Conditions or Safety Concerns. Patient unable to answer due to severe confusion and agitation PT Evaluation-Current Subjective Patient is very confused and agitated. PT encouraged patient to participate in OOB activity. Objective Patient Orientation: Confused ROM/Strength ROM Lower Extremities bilateral LE WFL Strength Lower Extremities NT due to patient's inability to follow simple direction Integumentary/Posture Integumentary refer to nursing notes Bladder Incontinence: No Posture WFL Neuromuscular (Tone, Coordination, Reflexes) grossly intact Sensory Vision: Functional Hearing: Functional Transfers Lying to Sitting/Side of Bed(Q: 3 Sit to Stand (QC): 3 Chair/Ioe-wi-Pwqzv Xfer(QC): 3 Gait Mode of Locomotion: Walk Anticipated Mode of Locomotion: Walk Walk 10 feet (QC): 3 Walk 50 ft with 2 Turns(QC): 3 Walk 150 ft (QC): 3 Distance: 150' Gait Assistive Device: FWW Comments/Gait Description VC's for body placement in FWW/min assist for safety (patient started to "melt" returning to room/recliner) Balance Sitting Static: Normal Sitting Dynamic: Normal Standing Static: Fair Standing Dynamic: Fair Assessment/Needs 77 y.o. female, will benefit from skilled PT to address functional strength and mobility to improve current LOF. Patient is severely confused and difficult to reason with. Patient requires redirection to safely perform activity. Rehab Potential: Guarded PT Insole Presser Goals Skilled Nursing Goals PT Skilled Nursing Goals Time Frame: Jul 09, 2022 Roll Left & Right (QC): 4 Sit to Lying (QC): 4 Lying-Sitting on Side/Bed(QC): 4 Sit to Stand (QC): 4 Chair/Rrb-un-Tqduo Xfer(QC): 4 Toilet Transfer (QC): 4 Walk 10 feet (QC): 4 Walk 50ft with 2 Turns (QC): 4 Walk 150 ft (QC): 4 PT Plan Problem List Problem List: Activity Tolerance, Functional Strength, Safety, Balance, Gait, Transfer, Bed Mobility Treatment/Plan Treatment Plan: Continue Plan of Care Treatment Plan: Bed Mobility, Education, Functional Activity Trace, Functional Strength, Gait, Safety, Therapeutic Exercise, Transfers Treatment Duration: Jul 09, 2022 Frequency: 6 times per week Estimated Hrs Per Day: .25 hour per day Time Time In: 750 Time Out: 821 DATE: Jun 27, 2022 Total Billed Treatment Time: 31 Total Billed Treatment 1 visit EVNavidC 14 min GT 16 min MARCO ANTONIO PEREA PT Jun 27, 2022 10:51
--- NOTE | 2022-06-27 10:51 | Discharge Summary ---
Discharge Summary Hospital Course Was the Problem List Reviewed?: Yes Problems/Dx: (1) NSTEMI (non-ST elevated myocardial infarction) (2) Elevated troponin Status: Acute (3) Chest pain Status: Acute Qualifiers: Qualified Codes: R07.9 - Chest pain, unspecified (4) UTI (urinary tract infection) Status: Acute Qualifiers: Qualified Codes: N39.0 - Urinary tract infection, site not specified (5) Hypokalemia Status: Acute (6) Anemia Status: Acute Qualifiers: Qualified Codes: D64.9 - Anemia, unspecified (7) Atrial fibrillation Status: Acute Qualifiers: Qualified Codes: I48.91 - Unspecified atrial fibrillation (8) Chronic right hip pain Status: Acute Hospital Course Date of Admission: Jun 25, 2022 at 11:34 Admission Diagnosis : Family Physician/Provider: Vaughn Boggs DO Date of Discharge: 06/27/22 Discharge Diagnosis: [ ] Hospital Course: Pt had an uneventful hospital course, although she was confused due to UTI and superimposed on dementia. She underwent cardiac cath without any intervention required. She remained on anticoagulation for stroke prophylaxis from afib. She was discharged in improved condition. Ultimately may need yvette psych treatment. Labs and Pending Lab Test: Laboratory Tests 06/26/22 14:38: White Blood Count 7.5, Red Blood Count 3.79L, Hemoglobin 9.4L, Hematocrit 30L, Mean Corpuscular Volume 80, Mean Corpuscular Hemoglobin 25, Mean Corpuscular Hemoglobin Concent 31L, Red Cell Distribution Width 15.7H, Platelet Count 320, Mean Platelet Volume 8.8L, Percent Immature Platelet Fraction 1.3, Sodium Level 137, Potassium Level 4.5, Chloride Level 106, Carbon Dioxide Level 16L, Anion Gap 15H, Blood Urea Nitrogen 16, Creatinine 0.81, Estimat Glomerular Filtration Rate 76, BUN/Creatinine Ratio 20, Glucose Level 99, Calcium Level 8.5 Microbiology 06/25/22 MRSA Screen - Final, Complete MRSA not isolated 06/25/22 Blood Culture - Preliminary, Resulted No growth 06/25/22 Urine Culture - Preliminary, Resulted Escherichia coli Assessment/Pt Instructions PCP 1 week Discharge Planning: <30 minutes discharge planning Discharge Instructions Discharge Diet: No Restrictions Discharge Physical Examination Vital Signs Vital Signs Date Time Temp Pulse Resp B/P (MAP) Pulse Ox O2 Delivery O2 Flow Rate FiO2 06/27/22 08:44 36.8 06/27/22 08:30 61 18 154/73 (100) 96 Room Air 06/27/22 08:06 0.00 General Appearance: No Apparent Distress, WD/WN, Chronically ill Neurologic/Psychiatric: Alert, Oriented x3, Disoriented Allergies: Coded Allergies: cyclobenzaprine (Verified Allergy, Unknown, 06/05/22) Discharge Summary Date of Admission Jun 25, 2022 at 11:34 Date of Discharge Discharge Date: Jun 27, 2022 Admission Diagnosis Assessment: NSTEMI Chronic atrial fibrillation Recent former smoker quit 2 weeks ago Hypertension Hyperlipidemia Presumed COPD UTI Recent hallucinations and paranoia Plan: ICU [facility] Cardiology consult appreciated Discharge Diagnosis Assessment: NSTEMI Chronic atrial fibrillation Recent former smoker quit 2 weeks ago Hypertension Hyperlipidemia Presumed COPD UTI Recent hallucinations and paranoia Right hip pain scheduled for replacement by Dr. Arce in 2 weeks Plan: ICU [facility] Cardiology consult appreciated Cardiac cath today ROSEANN LARA DO Jun 27, 2022 10:50
[2022-06-27 13:31] VITALS: BP 154/73
== END 2022-06-27 12:58 | disposition home or self-care (01) | DRG 281 ==
LOC: EDUNIT# 06:29 → ER 06:30 → ICU 11:34
PROVIDERS: ADMIT Internal Medicine; ATTEND Internal Medicine
PROC: 4A023N7 Measurement of Cardiac Sampling and Pressure, Left Heart, Percutaneous Approach (ICD-10-PCS; principal; 2022-06-26)
PROC: B2111ZZ Fluoroscopy of Multiple Coronary Arteries using Low Osmolar Contrast (ICD-10-PCS; 2022-06-26)
PROC: B2151ZZ Fluoroscopy of Left Heart using Low Osmolar Contrast (ICD-10-PCS; 2022-06-26)
PROC: B3101ZZ Fluoroscopy of Thoracic Aorta using Low Osmolar Contrast (ICD-10-PCS; 2022-06-26)
DX: I21.4 Non-ST elevation (NSTEMI) myocardial infarction (principal); I48.20 Chronic atrial fibrillation, unspecified; N39.0 Urinary tract infection, site not specified; R44.3 Hallucinations, unspecified; E87.6 Hypokalemia; D64.9 Anemia, unspecified; G89.29 Other chronic pain; M25.551 Pain in right hip; F03.90 Unspecified dementia, unspecified severity, without behavioral disturbance, psychotic disturbance, mood disturbance, and anxiety; Z87.891 Personal history of nicotine dependence; E78.5 Hyperlipidemia, unspecified; J44.9 Chronic obstructive pulmonary disease, unspecified; R41.0 Disorientation, unspecified; R45.1 Restlessness and agitation; I27.20 Pulmonary hypertension, unspecified; B96.20 Unspecified Escherichia coli [E. coli] as the cause of diseases classified elsewhere; I49.5 Sick sinus syndrome; E78.00 Pure hypercholesterolemia, unspecified; I10 Essential (primary) hypertension; F41.9 Anxiety disorder, unspecified; F32.A Depression, unspecified
CPT/HCPCS: 36415; 71045; 75716; 80048; 80053; 80061; 80306; 81000; 82607; 82728; 83540; 83605; 83690; 83735; 83874; 84100; 84484; 85014; 85018; 85025; 85027; 85045; 85610; 85730; 86850; 86900; 86901; 86920; 87040; 87077; 87081; 87088; 87186; 93005; 93041; 93306; 93458

== ENCOUNTER → 2022-07-12 | Outpatient (CLI) | payer MEDICARE ==
[~2022-07-12] MED LIST: APIX5TAB PO; BUPR-105 PO; CEFD300C3 PO; PANT40TA52 PO; RIVA20TA PO
== END ==
LOC: ORTHO 10:50
PROVIDERS: ATTEND Orthopaedic Surgery
DX: Z01.89 Encounter for other specified special examinations (principal)
CPT/HCPCS: 87081

== ENCOUNTER 2022-07-18 05:59 | Day surgery (SDC) | payer MEDICARE ==
[~2022-07-18] VITALS: Ht 165 cm; Wt 86.8 kg
[2022-07-18] MEDS ORDERED: ceFAZolin INJECTION 2,000 MG in NS (IVPB) 50 ML IV ONE (06:15)
[2022-07-18 06:30] VITALS: BP 134/53
[2022-07-18] MEDS ORDERED: LACTATED RINGERS 1,000 ML IV PRN (07:00)
[2022-07-18] MEDS ORDERED: SEVOFLURANE (ULTANE) 15 ML INHAL SOLN ONE (07:10)
[2022-07-18] MEDS ORDERED: LIDOCAINE PF 2% 5 ML (XYLOCAINE) VIAL ONE (07:10)
[2022-07-18] MEDS ORDERED: fentaNYL INJ 100 MCG/2 ML AMP ONE (07:10)
[2022-07-18] MEDS ORDERED: TRANEXAMIC ACID 100 MG/ML 10 ML INJECTION ONE (07:10)
[2022-07-18] MEDS ORDERED: proPOfol 200 MG/20 ML (DIPRIVAN) VIAL IV ONE (07:10)
[2022-07-18] MEDS ORDERED: ONDANSETRON 4 MG/2 ML (SDV) Z0FRAN ONE (07:10)
== END 2022-07-18 09:45 | disposition home or self-care (01) ==
LOC: SDC 05:59 → EDSTATUS 09:10 → SDC 09:45
PROVIDERS: ATTEND Orthopaedic Surgery
DX: M16.11 Unilateral primary osteoarthritis, right hip (principal); Z53.09 Procedure and treatment not carried out because of other contraindication; Z28.310 Unvaccinated for COVID-19

== ENCOUNTER 2022-07-19 17:06 | Observation (INO) | payer MEDICARE ==
[~2022-07-19] VITALS: Ht 165.1 cm; Wt 37.8 kg
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
[2022-07-19 18:40] LABS: BASOPHILS % (AUTO) 0 % (0-10); EOSINOPHILS % (AUTO) 0 % (0-10); HEMATOCRIT 36 % (35-52); HEMOGLOBIN 11.1 g/dL (11.5-16.0); LYMPHOCYTES # (AUTO) 1.3 10^3/uL (1.0-4.0); LYMPHOCYTES % (AUTO) 32 % (12-44); MEAN CORPUSCULAR HEMOGLOBIN 25 pg (25-34); MEAN CORPUSCULAR HGB CONC 31 g/dL (32-36); MEAN CORPUSCULAR VOLUME 81 fL (80-99); MONOCYTES # (AUTO) 0.4 10^3/uL (0.0-1.0); MONOCYTES % (AUTO) 11 % (0-12); NEUTROPHILS # (AUTO) 2.2 10^3/uL (1.8-7.8); NEUTROPHILS % (AUTO) 56 % (42-75); PLATELET COUNT 227 10^3/uL (130-400); WHITE BLOOD COUNT 3.9 10^3/uL (4.3-11.0)
[2022-07-19 18:50] LABS: ALBUMIN 3.7 GM/DL (3.2-4.5); POTASSIUM 3.1 MMOL/L (3.6-5.0)
[2022-07-19 18:52] LABS: CALCIUM 8.9 MG/DL (8.5-10.1)
[2022-07-19 18:53] LABS: TOTAL PROTEIN 7.2 GM/DL (6.4-8.2)
[2022-07-19 18:55] LABS: BILIRUBIN,TOTAL 0.3 MG/DL (0.1-1.0)
[2022-07-19 18:56] LABS: BILIRUBIN,URINE 1+ (NEGATIVE); CLARITY,URINE CLEAR; COLOR,URINE YELLOW; GLUCOSE, URINE (UA) NEGATIVE (NEGATIVE); KETONES,URINE TRACE (NEGATIVE); LEUKOCYTE ESTERASE ,URINE NEGATIVE (NEGATIVE); NITRITE,URINE NEGATIVE (NEGATIVE); PH,URINE 5.5 (5-9); PROTEIN,URINE TRACE (NEGATIVE)
[2022-07-19 18:56] LABS: CREATININE SERUM 1.03 MG/DL (0.60-1.30)
[2022-07-19] MEDS ORDERED: KCL 10 MEQ TAB (MICRO K) PO STA (18:58)
[2022-07-19 19:05] LABS: BACTERIA,URINE NEGATIVE /HPF; RBC,URINE 0-2 /HPF; SQUAMOUS EPITHELIAL CELL,UR 0-2 /HPF; WBC,URINE 0-2 /HPF
[2022-07-19 19:12] LABS: AMPHETAMINE SCREEN, URINE NEGATIVE (NEGATIVE); BARBITURATE SCREEN URINE NEGATIVE (NEGATIVE); BENZODIAZEPINES SCREEN URINE NEGATIVE (NEGATIVE); CANNABINOID SCREEN, URINE POSITIVE (NEGATIVE); COCAINE SCREEN URINE NEGATIVE (NEGATIVE); METHADONE STAT NEGATIVE (NEGATIVE); OPIATE SCREEN URINE NEGATIVE (NEGATIVE); OXYCODONE STAT NEGATIVE (NEGATIVE); PROPOXYPHENE STAT NEGATIVE (NEGATIVE); TRICYCLIC ANTIDEPRESSANTS SCRE NEGATIVE (NEGATIVE)
[2022-07-19] MEDS ORDERED: NS IV 1000 ML 1,000 ML IV SCH (19:30)
[2022-07-19 20:30] VITALS: BP 145/67
[2022-07-19] MEDS: ACETAMINOPHEN 325 MG TABLET PO PRN (22:44)
[2022-07-19] MEDS: NS IV 1000 ML 1,000 ML IV SCH (22:47)
[2022-07-20] VITALS: BP 145/67
[2022-07-20] MEDS: ALPRAZolam 0.5 MG (XANAX) TAB PO PRN ×3 (00:02→21:45)
[2022-07-20 07:56] VITALS: BP 130/59
--- NOTE | 2022-07-20 09:44 | History & Physical ---
HPI History of Present Illness: 77 yo F that was admitted due to uncontrolled right hip pain and concerns for safety. Patient was to have recent hip replacement but did not stop her OAC prior to surgery so the surgery was postponed. She is living with a couple that she was paying to help care for her and states that they were not helping at all. She was not eating until dinner time and was getting no help with staying hydrated or help moving around. She desires placement into a facility. She states that she feels like she might have a UTI and has not been drinking water hardly at all because they would not help get her water. She also states concerns about them stealing her banking information and stealing money from her. Source: patient Exam Limitations: no limitations Date seen by provider: Jul 20, 2022 Time Seen by Provider: 07:15 Attending Physician Vaughn Boggs DO PCP Admitting Physician: Demi Santos MD Attending Physician: Demi Santos MD Consult Date of Admission Jul 19, 2022 at 19:55 Home Medications Home Medications Reviewed patient Home Medication Reconciliation performed by pharmacy medication reconciliations broadcast operations technician and/or nursing. Patients Allergies have been reviewed. Allergies Coded Allergies: cyclobenzaprine (Verified Allergy, Unknown, 06/05/22) QTC-Yfmrva-Nzygaj Hx Patient Social History Living Status: Living with a couple Smoking Status: Former Smoker Recent Hopitalizations: No Alcohol Use?: No Tobacco type used: Cigarettes Have you traveled recently?: No Immunizations Up To Date Tetanus Booster (TDap): Unknown Influenza Vaccine Up-to-Date: No; Not Current First/Initial COVID19 Vaccinat: NONE Second COVID19 Vaccination [place]: NONE Third COVID19 Vaccination Date: NONE Past Medical History Atrial Fibrillation Right hip osteoarthritis Family Medical History Significant Family History: No Pertinent Family Hx Review of Systems ([facility]C) Constitutional: malaise, weakness EENTM: no symptoms reported Respiratory: no symptoms reported; No cough, No dyspnea on exertion Cardiovascular: no symptoms reported; No chest pain, No edema, No palpitations Gastrointestinal: no symptoms reported; No abdominal pain, No constipation, No diarrhea, No nausea, No vomiting Genitourinary: No dysuria; frequency; No hematuria Musculoskeletal: joint pain, muscle pain Skin: no symptoms reported Psychiatric/Neurological: Anxiety, Depressed Reviewed Test Results Reviewed Test Results Lab Laboratory Tests Test 07/19/22 18:30 07/19/22 18:40 Range/Units White Blood Count 3.9 L 4.3-11.0 10^3/uL Red Blood Count 4.46 3.80-5.11 10^6/uL Hemoglobin 11.1 L 11.5-16.0 g/dL Hematocrit 36 35-52 % Mean Corpuscular Volume 81 80-99 fL Mean Corpuscular Hemoglobin 25 25-34 pg Mean Corpuscular Hemoglobin Concent 31 L 32-36 g/dL Red Cell Distribution Width 17.4 H 10.0-14.5 % Platelet Count 227 130-400 10^3/uL Mean Platelet Volume 9.0 9.0-12.2 fL Immature Granulocyte % (Auto) 0 % Neutrophils (%) (Auto) 56 42-75 % Lymphocytes (%) (Auto) 32 12-44 % Monocytes (%) (Auto) 11 0-12 % Eosinophils (%) (Auto) 0 0-10 % Basophils (%) (Auto) 0 0-10 % Neutrophils # (Auto) 2.2 1.8-7.8 10^3/uL Lymphocytes # (Auto) 1.3 1.0-4.0 10^3/uL Monocytes # (Auto) 0.4 0.0-1.0 10^3/uL Eosinophils # (Auto) 0.0 0.0-0.3 10^3/uL Basophils # (Auto) 0.0 0.0-0.1 10^3/uL Immature Granulocyte # (Auto) 0.0 0.0-0.1 10^3/uL Sodium Level 136 135-145 MMOL/L Potassium Level 3.1 L 3.6-5.0 MMOL/L Chloride Level 103 98-107 MMOL/L Carbon Dioxide Level 18 L 21-32 MMOL/L Anion Gap 15 H 5-14 MMOL/L Blood Urea Nitrogen 15 7-18 MG/DL Creatinine 1.03 0.60-1.30 MG/DL Estimat Glomerular Filtration Rate 57 BUN/Creatinine Ratio 15 Glucose Level 141 H 70-105 MG/DL Calcium Level 8.9 8.5-10.1 MG/DL Corrected Calcium 9.1 8.5-10.1 MG/DL Total Bilirubin 0.3 0.1-1.0 MG/DL Aspartate Amino Transf (AST/SGOT) 24 5-34 U/L Alanine Aminotransferase (ALT/SGPT) 11 0-55 U/L Alkaline Phosphatase 85 40-136 U/L Total Protein 7.2 6.4-8.2 GM/DL Albumin 3.7 3.2-4.5 GM/DL Urine Color YELLOW Urine Clarity CLEAR Urine pH 5.5 5-9 Urine Specific [place] >=1.030 1.016-1.022 Urine Protein TRACE H NEGATIVE Urine Glucose (UA) NEGATIVE NEGATIVE Urine Ketones TRACE H NEGATIVE Urine Nitrite NEGATIVE NEGATIVE Urine Bilirubin 1+ H NEGATIVE Urine Urobilinogen 0.2 < = 1.0 MG/DL Urine Leukocyte Esterase NEGATIVE NEGATIVE Urine RBC (Auto) TRACE-I H NEGATIVE Urine RBC 0-2 /HPF Urine WBC 0-2 /HPF Urine Squamous Epithelial Cells 0-2 /HPF Urine Renal Epithelial Cells 2-5 /HPF Urine Crystals NONE /LPF Urine Bacteria NEGATIVE /HPF Urine Casts NONE /LPF Urine Mucus LARGE H /LPF Urine Culture Indicated NO Urine Opiates Screen NEGATIVE NEGATIVE Urine Oxycodone Screen NEGATIVE NEGATIVE Urine Methadone Screen NEGATIVE NEGATIVE Urine Propoxyphene Screen NEGATIVE NEGATIVE Urine Barbiturates Screen NEGATIVE NEGATIVE Ur Tricyclic Antidepressants Screen NEGATIVE NEGATIVE Urine Phencyclidine Screen NEGATIVE NEGATIVE Urine Amphetamines Screen NEGATIVE NEGATIVE Urine Methamphetamines Screen NEGATIVE NEGATIVE Urine Benzodiazepines Screen NEGATIVE NEGATIVE Urine Cocaine Screen NEGATIVE NEGATIVE Urine Cannabinoids Screen POSITIVE H NEGATIVE Physical Exam-(CHC) Physical Exam Vital Signs VS - Last 72 Hours, by Label 07/19/22 07/19/22 07/19/22 07/19/22 17:07 20:04 20:15 20:30 Temp 35.9 36.7 Pulse 47 65 74 Resp 16 16 16 B/P (MAP) 109/69 (82) 115/65 145/67 (93) Pulse Ox 99 95 100 O2 Delivery Room Air Room Air Room Air Room Air 07/20/22 07/20/22 07/20/22 07/20/22 00:00 04:00 07:56 08:00 Temp 36.7 37.0 36.5 Pulse 74 75 59 Resp 16 18 18 B/P (MAP) 145/67 (93) 130/59 (82) Pulse Ox 100 99 97 97 O2 Delivery Room Air Room Air Room Air Room Air Capillary Refill : Less Than 3 Seconds General Appearance: WD/WN, no apparent distress HEENT: PERRL/EOMI Neck: non-tender Respiratory: chest non-tender, lungs clear, normal breath sounds, no respiratory distress, no accessory muscle use Cardiovascular: normal peripheral pulses, regular rate, rhythm, no murmur Gastrointestinal: normal bowel sounds, non tender, soft Back: no CVA tenderness, no vertebral tenderness Extremities: no pedal edema, no calf tenderness, normal capillary refill, other (Right hip severe pain to palpation and decreased ROM due to pain) Neurologic/Psychiatric: glass vial bending conveyor feeder II-XII nml as tested, alert, oriented x 3 Skin: normal color, warm/dry Lymphatic: no adenopathy Assessment/Plan Assessment/Plan Admission Status: Observation (1) Chronic right hip pain Status: Acute Assessment & Plan: - Restarted on home pain medications, IV for breakthru, PT ordered (2) Atrial fibrillation Status: Acute Assessment & Plan: - Continue OAC Qualifiers: Qualified Codes: I48.91 - Unspecified atrial fibrillation (3) Hypokalemia Status: Acute Assessment & Plan: - Replaced and repeat in AM (4) Debilitated Status: Acute Assessment & Plan: - Due to safety concerns SW consulted, report was made in ER, patient would benefit to placement DEMI SANTOS MD Jul 20, 2022 09:44
[2022-07-20 11:21] VITALS: BP_SYST 150; BP_SYST 179; BP_DIAS 74; BP_DIAS 80
[2022-07-20] MEDS ORDERED: AMLO-250 PO (14:42)
[2022-07-20] MEDS ORDERED: GABA300C PO ×2 (14:42)
[2022-07-20] MEDS ORDERED: BUPR150T24 PO (14:42)
[2022-07-20] MEDS ORDERED: DILT360C30 PO (14:42)
[2022-07-20] MEDS: NS IV 1000 ML 1,000 ML IV SCH ×2 (14:53→18:41)
--- NOTE | 2022-07-20 15:10 | Physical Therapy Evaluation ---
PT Evaluation-General Medical Diagnosis Admission Date Jul 19, 2022 at 19:55 Medical Diagnosis: Degenerative Arthritis of right hip, Debilitated, Hypokalemia Onset Date: Jul 19, 2022 Therapy Diagnosis Therapy Diagnosis: impaired mobility Precautions Precautions/Isolations: Fall Prevention, Standard Precautions, Pressure Ulcer Weight Bear Status Weight Bearing/Tolerated Referral Physician: Danielle Reason for Referral: Evaluation/Treatment Medical History Pertinent Medical History: Atrial Fib, OA Current History Patient was scheduled to have a right total hip but couldn't due to complications. Reviewed History: Yes Social History Home: Single Level Current Living Status: Entry Into Home: Stairs Without Railing PT Steps Into Home: 2 Prior Prior Level of Function SCALE: Activities may be completed with or without assistive devices. 0-Toaytbedum-tjrgegn completes the activity by him/herself with no assistance from a helper. 5-Set-up or Clean-up Assistance-helper sets up or cleans up; patient completes activity. [place] assists only prior to or following the activity. 4-Supervision or Touching Assistance-helper provides verbal cues and/or touching/steadying and/or contact guard assistance as patient completes a ctivity. Assistance may be provided throughout the activity or intermittently. 3-Partial/Moderate Assistance-helper does LESS THAN HALF the effort. [place] lifts, holds or supports trunk or limbs, but provides less than half the effort. 2-Substantial/Maximal Assistance-helper does MORE THAN HALF the effort. [place] lifts or holds trunk or limbs and provides more than half the effort. 2-Daplfdoya-rpkonz does ALL the effort. Patient does none of the effort to complete the activity. Or, the assistance of 2 or more helpers is required for the patient to complete the activity. If activity was not attempted, code reason: 7-Patient Refused. 9-Not Applicable-not attempted and the patient did not perform the activity before the current illness, exacerbation or injury. 10-Not Attempted due to Environmental Limitations-(lack of equipment, weather restraints, etc.). 88-Not Attempted due to Medical Conditions or Safety Concerns. Bed Mobility: 3 Transfers (B,C,W/C): 3 Wheelchair Mobility: 3 Prior Devices Use: Manual wheelchair Patient states she doesn't ambulate, uses a WC for mobility, states she transfers from bed to without using a walker PT Evaluation-Current Subjective Patient in bed pre tx, agrees to PT but states she can't get out of bed because she has too much pain and anxiety. Agrees to exercises in bed. Pain in right hip is 9/10. Pt/Family Goals "to decrease pain" Objective Patient Orientation: Person, Place, Situation Sensory Hearing: Functional Sensation Right Lower Extremit: Intact Sensation Left Lower Extremity: Intact Treatment RLE exercises x10 (AP, QS, GS), attempted HS and she performed one with therapist assist but was too painful to continue to do any exercises after that. Assessment/Needs Patient in bed post tx with nurse call, phone, tray, all needs met. Need to try to schedule anxiety and pain meds prior to therapy tomorrow. Rehab Potential: Guarded PT Transmission Engineer Goals Transmission Engineer Goals PT Transmission Engineer Goals Time Frame: Jul 27, 2022 Roll Left & Right (QC): 3 Sit to Lying (QC): 3 Lying-Sitting on Side/Bed(QC): 3 Sit to Stand (QC): 3 Chair/Pgy-as-Gwyrf Xfer(QC): 3 Walk 10 feet (QC): 3 PT Plan Problem List Problem List: Activity Tolerance, Functional Strength, Safety, Balance, Gait, Transfer, Bed Mobility, ROM Treatment/Plan Treatment Plan: Continue Plan of Care Treatment Plan: Bed Mobility, Education, Functional Activity Trace, Functional Strength, Gait, Safety, Therapeutic Exercise, Transfers Treatment Duration: Jul 27, 2022 Frequency: 6 times per week Estimated Hrs Per Day: .25 hour per day Patient and/or Family Agrees t: Yes Safety Risks/Education Patient Education: Correct Positioning, Safety Issues Teaching Recipient: Patient Teaching Methods: Demonstration, Discussion Response to Teaching: Reinforcement Needed Discharge Recommendations Plan Patient will perform bed mobility and transfer training, balance and endurance training functional strengthening, gait training, and education, to improve functional mobility and independence at home. Therapy Discharge Recommendati: Scheduled Assistance, Home & Family, Post Acute PT Time Time In: 1440 Time Out: 1449 DATE: Jul 20, 2022 Total Billed Treatment Time: 9 Total Billed Treatment 1 visit JONATHAN HALL PT Jul 20, 2022 15:10
[2022-07-20 15:46] VITALS: BP 161/74
[2022-07-20 19:11] VITALS: BP 151/73
[2022-07-20] MEDS: ACETAMINOPHEN 325 MG TABLET PO PRN (21:47)
[2022-07-21] MEDS: NS IV 1000 ML 1,000 ML IV SCH ×3 (03:45→22:05)
[2022-07-21 07:20] VITALS: BP 145/66
[2022-07-21 07:22] LABS: BASOPHILS % (AUTO) 0 % (0-10); EOSINOPHILS % (AUTO) 1 % (0-10); HEMATOCRIT 35 % (35-52); HEMOGLOBIN 10.7 g/dL (11.5-16.0); LYMPHOCYTES # (AUTO) 1.6 10^3/uL (1.0-4.0); LYMPHOCYTES % (AUTO) 47 % (12-44); MEAN CORPUSCULAR HEMOGLOBIN 25 pg (25-34); MEAN CORPUSCULAR HGB CONC 31 g/dL (32-36); MEAN CORPUSCULAR VOLUME 81 fL (80-99); MEAN PLATELET VOLUME 9.4 fL (9.0-12.2); MONOCYTES # (AUTO) 0.2 10^3/uL (0.0-1.0); MONOCYTES % (AUTO) 7 % (0-12); NEUTROPHILS # (AUTO) 1.5 10^3/uL (1.8-7.8); NEUTROPHILS % (AUTO) 45 % (42-75); PLATELET COUNT 177 10^3/uL (130-400); WHITE BLOOD COUNT 3.4 10^3/uL (4.3-11.0)
[2022-07-21 07:32] LABS: CALCIUM 8.5 MG/DL (8.5-10.1); CREATININE SERUM 0.78 MG/DL (0.60-1.30); POTASSIUM 3.5 MMOL/L (3.6-5.0)
[2022-07-21 11:03] VITALS: BP 159/70
[2022-07-21] MEDS: RIVAROXABAN 20 MG TABLET (XARELTO) PO SCH (12:42)
--- NOTE | 2022-07-21 13:20 | Physical Therapy Daily Note ---
PT Daily Note-Current Subjective Pt reports she is tired from being up and down all night with diarrhea. Agrees to exercise but does not want to walk. Pain Section J - Health Conditions 1. Rarely or not at all 2. Occasionally 3. Frequently 4. Almost constantly 8. Unable to answer Pain Effect on Sleep: 4 Pain Interference with Therapy: 4 Pain Interference w/Day-to-Day: 4 Transfers SCALE: Activities may be completed with or without assistive devices. 8-Tdgwselqyd-gpfmzuz completes the activity by him/herself with no assistance from a helper. 5-Set-up or Clean-up Assistance-helper sets up or cleans up; patient completes activity. [place] assists only prior to or following the activity. 4-Supervision or Touching Assistance-helper provides verbal cues and/or touching/steadying and/or contact guard assistance as patient completes activity. Assistance may be provided throughout the activity or intermittently. 3-Partial/Moderate Assistance-helper does LESS THAN HALF the effort. [place] lifts, holds or supports trunk or limbs, but provides less than half the effort. 2-Substantial/Maximal Assistance-helper does MORE THAN HALF the effort. [place] lifts or holds trunk or limbs and provides more than half the effort. 7-[place]-qyqcpa does ALL the effort. Patient does none of the effort to complete the activity. Or, the assistance of 2 or more helpers is required for the patient to complete the activity. If activity was not attempted, code reason: 7-Patient Refused. 9-Not Applicable-not attempted and the patient did not perform the activity before the current illness, exacerbation or injury. 10-Not Attempted due to Environmental Limitations-(lack of equipment, weather restraints, etc.). 88-Not Attempted due to Medical Conditions or Safety Concerns. Transfer supine to sit with set up. Sit to stand, CGA, Ambulate 5 steps with FWW CGA then requests to use commode. Weight Bearing Weight Bearing/Tolerated Gait Training Ambulate 5ft with FWW,CGA. Exercises Supine Ex: Ankle pumps, Quad Set, Glut sets, Heel Slides, Short Arc Quads, Straight leg raise, Hip abd/add Supine Reps: 10 Right LE exercises with active assist to achieve patients full range. Treatments Pt reluctant to participate due to pain in the left hip. She did take a few steps and was educated on the importance of maintaining mobility prior to hip surgery. Assessment Pt reluctant to participate due to pain in the left hip. She did take a few steps and was educated on the importance of maintaining mobility prior to hip surgery. PT Taxicab Starter Goals Care Home Goals PT Taxicab Starter Goals Time Frame: Jul 27, 2022 Roll Left & Right (QC): 3 Sit to Lying (QC): 3 Lying-Sitting on Side/Bed(QC): 3 Sit to Stand (QC): 3 Chair/Cfl-ey-Inrzt Xfer(QC): 3 Walk 10 feet (QC): 3 PT Plan Treatment/Plan Treatment Plan: Continue Plan of Care Treatment Plan: Bed Mobility, Education, Functional Activity Trace, Functional Strength, Gait, Safety, Therapeutic Exercise, Transfers Treatment Duration: Jul 27, 2022 Frequency: 6 times per week Estimated Hrs Per Day: .25 hour per day Patient and/or Family Agrees t: Yes Time Time In: 1300 Time Out: 1320 DATE: Jul 21, 2022 Total Billed Treatment Time: 20 Total Billed Treatment visit, Ther ex 15min, FA 5 min LAN RL PT Jul 21, 2022 13:20
--- NOTE | 2022-07-21 14:56 | Progress Note ---
Subjective Subjective/Events-last exam She is doing well this AM. States that her pain is manageable but bad when she is moving around. Tolerating PO diet. Working with PT Review of Systems General: No Fatigue, No Malaise Pulmonary: No Dyspnea, No Cough Cardiovascular: Edema; No: Chest Pain, Palpitations Gastrointestinal: No: Nausea, Vomiting, Abdominal Pain, Diarrhea, Constipation Neurological: Weakness, Incoordination Objective Exam Last Set of Vital Signs Vital Signs Date Time Temp Pulse Resp B/P (MAP) Pulse Ox O2 Delivery O2 Flow Rate FiO2 07/21/22 11:03 35.9 63 20 159/70 (99) 99 Room Air Capillary Refill : Less Than 3 Seconds I&O Intake and Output 07/21/22 00:00 Intake Total 1960 ml Output Total 500 ml Balance 1460 ml Intake Oral 960 ml IV Total 1000 ml Output Urine Total 500 ml # Voids 5 # Bowel Movements 6 General: Alert, Oriented X3, No Acute Distress Lungs: Clear to Auscultation, Normal Air Movement Heart: Regular Rate, No Murmurs Abdomen: Normal Bowel Sounds, Soft, No Tenderness, No Masses Extremities: No Edema Neuro: Normal Speech Results/Procedures Lab Laboratory Tests 07/21/22 07:06: White Blood Count 3.4L, Red Blood Count 4.29, Hemoglobin 10.7L, Hematocrit 35, Mean Corpuscular Volume 81, Mean Corpuscular Hemoglobin 25, Mean Corpuscular Hemoglobin Concent 31L, Red Cell Distribution Width 17.2H, Platelet Count 177, Mean Platelet Volume 9.4, Immature Granulocyte % (Auto) 0, Neutrophils (%) (Auto) 45, Lymphocytes (%) (Auto) 47H, Monocytes (%) (Auto) 7, Eosinophils (%) (Auto) 1, Basophils (%) (Auto) 0, Neutrophils # (Auto) 1.5L, Lymphocytes # (Auto) 1.6, Monocytes # (Auto) 0.2, Eosinophils # (Auto) 0.0, Basophils # (Auto) 0.0, Immature Granulocyte # (Auto) 0.0, Percent Immature Platelet Fraction 1.6, Sodium Level 140, Potassium Level 3.5L, Chloride Level 111H, Carbon Dioxide Level 19L, Anion Gap 10, Blood Urea Nitrogen 18, Creatinine 0.78, Estimat Glomerular Filtration Rate 79, BUN/Creatinine Ratio 23, Glucose Level 101, Calcium Level 8.5 Assessment/Plan Assessment/Plan (1) Chronic right hip pain Status: Acute Assessment & Plan: - Restarted on home pain medications, IV for breakthru, PT ordered 07/21: Continue PT, awaiting on placement (2) Atrial fibrillation Status: Acute Assessment & Plan: - Continue OAC 07/21: Rate controlled, continue OAC Qualifiers: Qualified Codes: I48.91 - Unspecified atrial fibrillation (3) Hypokalemia Status: Acute Assessment & Plan: - Replaced and repeat in AM (4) Debilitated Status: Acute Assessment & Plan: - Due to safety concerns SW consulted, report was made in ER, patient would benefit to placement SHAN JUAREZ MD Jul 21, 2022 14:56
[2022-07-21 15:45] VITALS: BP 193/80
[2022-07-21] MEDS ORDERED: amLODIPine 5 MG (NORVASC) TAB PO NR (16:30)
[2022-07-21 19:14] VITALS: BP 130/75
[2022-07-22] VITALS (7 sets, daily range): BP systolic 116–158; BP diastolic 55–74
[2022-07-22] MEDS: KCL 20 MEQ TAB (K-DUR) PO SCH (05:49)
[2022-07-22 07:56] LABS: POTASSIUM 3.7 MMOL/L (3.6-5.0)
[2022-07-22 07:57] LABS: CALCIUM 8.5 MG/DL (8.5-10.1)
[2022-07-22 08:02] LABS: CREATININE SERUM 0.71 MG/DL (0.60-1.30)
[2022-07-22 08:04] LABS: MAGNESIUM 1.2 MG/DL (1.6-2.4)
[2022-07-22] MEDS: RIVAROXABAN 20 MG TABLET (XARELTO) PO SCH (08:28)
[2022-07-22] MEDS: ALPRAZolam 0.5 MG (XANAX) TAB PO PRN ×2 (08:28→22:24)
[2022-07-22] MEDS: buPROPion SR 150 MG (WELLBUTRIN SR) TAB PO SCH (08:28)
[2022-07-22] MEDS: amLODIPine 5 MG (NORVASC) TAB PO SCH (08:29)
[2022-07-22] MEDS: PANTOPRAZOLE 40 MG (PROTONIX) TAB PO SCH (08:29)
[2022-07-22] MEDS: GABAPENTIN 300 MG (NEURONTIN) CAP PO SCH (08:29)
[2022-07-22] MEDS: ACETAMINOPHEN 325 MG TABLET PO PRN (08:29)
[2022-07-22] MEDS ORDERED: NON-FORMULARY MEDICATION 1 EA EA (Bupropion HCl (Bupropion Xl) 150 MG) PO SCH (09:00)
[2022-07-22] MEDS ORDERED: NON-FORMULARY MEDICATION 1 EA EA (Diltiazem HCl (Diltiazem ER) 360 MG) PO SCH (09:00)
[2022-07-22] MEDS: NS IV 1000 ML 1,000 ML IV SCH ×2 (09:23→14:13)
--- NOTE | 2022-07-22 11:27 | Progress Note - Hospitalist ---
Subjective HPI/CC On Admission Date Seen by Provider: Jul 22, 2022 Time Seen by Provider: 11:30 Subjective/Events-last exam No major concerns Labs reviewed Awaiting jail placement Review of Systems General: Fatigue Objective Exam Vital Signs Vital Signs Date Time Temp Pulse Resp B/P (MAP) Pulse Ox O2 Delivery O2 Flow Rate FiO2 07/23/22 03:27 36.9 92 16 125/58 (80) 97 Room Air Capillary Refill : Less Than 3 Seconds General Appearance: No Apparent Distress, WD/WN, Chronically ill Respiratory: Lungs Clear Cardiovascular: Regular Rate, Rhythm Results/Procedures Lab Laboratory Tests 07/22/22 07:29 Patient resulted labs reviewed. Assessment/Plan Assessment and Plan Assess & Plan/Chief Complaint Assessment: Acute on chronic right hip pain Unable to ambulate Dementia Atrial fibrillation Hypokalemia Plan: Pain control Aggressive therapy ROSEANN LARA DO Jul 22, 2022 11:27
--- NOTE | 2022-07-22 15:09 | Physical Therapy Daily Note ---
PT Daily Note-Current Subjective Pt found laying in bed upon entry. Agreed to PT. States she has been getting in and out of bed all day and is able to trf self to bedside commode. Reports pain in anterior R hip. States that she has breathing trouble while ambulating. Pain Section J - Health Conditions 1. Rarely or not at all 2. Occasionally 3. Frequently 4. Almost constantly 8. Unable to answer Pain Effect on Sleep: 4 Pain Interference with Therapy: 4 Pain Interference w/Day-to-Day: 4 Mental Status Patient Orientation: Normal For Age Attachments: IV Transfers SCALE: Activities may be completed with or without assistive devices. 9-Sjllftchpt-uaazceo completes the activity by him/herself with no assistance from a helper. 5-Set-up or Clean-up Assistance-helper sets up or cleans up; patient completes activity. [place] assists only prior to or following the activity. 4-Supervision or Touching Assistance-helper provides verbal cues and/or touching/steadying and/or contact guard assistance as patient completes activity. Assistance may be provided throughout the activity or intermittently. 3-Partial/Moderate Assistance-helper does LESS THAN HALF the effort. [place] lifts, holds or supports trunk or limbs, but provides less than half the effort. 2-Substantial/Maximal Assistance-helper does MORE THAN HALF the effort. [place] lifts or holds trunk or limbs and provides more than half the effort. 7-Iuorhlycw-trvxew does ALL the effort. Patient does none of the effort to complete the activity. Or, the assistance of 2 or more helpers is required for the patient to complete the activity. If activity was not attempted, code reason: 7-Patient Refused. 9-Not Applicable-not attempted and the patient did not perform the activity before the current illness, exacerbation or injury. 10-Not Attempted due to Environmental Limitations-(lack of equipment, weather restraints, etc.). 88-Not Attempted due to Medical Conditions or Safety Concerns. Roll Left & Right (QC): 6 Sit to Lying (QC): 6 Sit to Stand (QC): 4 Pt independent /c bed mobility. CGA /c sit<->stand trfs. Weight Bearing Weight Bearing/Tolerated Gait Training Does the Patient Walk?: Yes Distance: 50 Walk 10 feet (QC): 4 Walk 50 ft with 2 Turns(QC): 4 Gait Persons Needed: 1 Gait Assistive Device: FWW Pt CGA /c gait training. Amb. 50ft total /c FWW. Wheelchair Training Does the Pt Use a Wheelchair?: No Assessment Current Status: Fair Progress Pt demonstrated signs of pain throughout Tx. Displays good bed mobility and is able to use UEs to control RLE. Continue to progress pt as tolerated per POC to increase endurance, strength, functional ability, and decrease pain. PT Alf Goals Cuff Turner Goals PT Cuff Turner Goals Time Frame: Jul 27, 2022 Roll Left & Right (QC): 3 Sit to Lying (QC): 3 Lying-Sitting on Side/Bed(QC): 3 Sit to Stand (QC): 3 Chair/Hbc-wl-Izncr Xfer(QC): 3 Walk 10 feet (QC): 3 PT Plan Treatment/Plan Treatment Plan: Continue Plan of Care Treatment Plan: Bed Mobility, Education, Functional Activity Trace, Functional Strength, Gait, Safety, Therapeutic Exercise, Transfers Treatment Duration: Jul 27, 2022 Frequency: 6 times per week Estimated Hrs Per Day: .25 hour per day Patient and/or Family Agrees t: Yes Time Time In: 1439 Time Out: 1458 DATE: Jul 22, 2022 Total Billed Treatment Time: 19 Total Billed Treatment 1 visit GT 1x JUDAH DE JESUS BOILER TESTING TECHNICIAN Jul 22, 2022 15:09
[2022-07-23 03:27] VITALS: BP 125/58
[2022-07-23] MEDS: KCL 20 MEQ TAB (K-DUR) PO SCH (06:09)
[2022-07-23] MEDS: NS IV 1000 ML 1,000 ML IV SCH ×2 (06:09→15:45)
[2022-07-23 07:21] VITALS: BP 168/67
--- NOTE | 2022-07-23 07:53 | Progress Note - Hospitalist ---
Subjective HPI/CC On Admission Date Seen by Provider: Jul 23, 2022 Time Seen by Provider: 11:00 Subjective/Events-last exam No major changes Labs reviewed No motivation to increase ambulation Objective Exam Vital Signs Vital Signs Date Time Temp Pulse Resp B/P (MAP) Pulse Ox O2 Delivery O2 Flow Rate FiO2 07/23/22 11:15 36.8 64 20 173/74 (107) 96 Room Air Capillary Refill : Less Than 3 Seconds General Appearance: No Apparent Distress, WD/WN, Chronically ill Respiratory: Lungs Clear Cardiovascular: Regular Rate, Rhythm Results/Procedures Lab Laboratory Tests 07/23/22 11:35 Patient resulted labs reviewed. Assessment/Plan Assessment and Plan Assess & Plan/Chief Complaint Assessment: Acute on chronic right hip pain Unable to ambulate Dementia Atrial fibrillation Hypokalemia Plan: Pain control Aggressive therapy ROSEANN LARA DO Jul 23, 2022 07:53
[2022-07-23] MEDS: RIVAROXABAN 20 MG TABLET (XARELTO) PO SCH (10:17)
[2022-07-23] MEDS: PANTOPRAZOLE 40 MG (PROTONIX) TAB PO SCH (10:17)
[2022-07-23] MEDS: buPROPion SR 150 MG (WELLBUTRIN SR) TAB PO SCH (10:17)
[2022-07-23] MEDS: GABAPENTIN 300 MG (NEURONTIN) CAP PO SCH (10:17)
[2022-07-23] MEDS: amLODIPine 5 MG (NORVASC) TAB PO SCH (10:17)
[2022-07-23 11:15] VITALS: BP 173/74
[2022-07-23 12:05] LABS: BASOPHILS % (AUTO) 0 % (0-10); EOSINOPHILS % (AUTO) 0 % (0-10); HEMATOCRIT 31 % (35-52); HEMOGLOBIN 9.6 g/dL (11.5-16.0); LYMPHOCYTES # (AUTO) 1.3 10^3/uL (1.0-4.0); LYMPHOCYTES % (AUTO) 29 % (12-44); MEAN CORPUSCULAR HEMOGLOBIN 25 pg (25-34); MEAN CORPUSCULAR HGB CONC 31 g/dL (32-36); MEAN CORPUSCULAR VOLUME 81 fL (80-99); MEAN PLATELET VOLUME 9.1 fL (9.0-12.2); MONOCYTES # (AUTO) 0.4 10^3/uL (0.0-1.0); MONOCYTES % (AUTO) 8 % (0-12); NEUTROPHILS # (AUTO) 2.9 10^3/uL (1.8-7.8); NEUTROPHILS % (AUTO) 62 % (42-75); PLATELET COUNT 182 10^3/uL (130-400); WHITE BLOOD COUNT 4.7 10^3/uL (4.3-11.0)
[2022-07-23 12:14] LABS: ALBUMIN 3.3 GM/DL (3.2-4.5); POTASSIUM 4.1 MMOL/L (3.6-5.0)
[2022-07-23 12:15] LABS: CALCIUM 8.4 MG/DL (8.5-10.1)
[2022-07-23 12:16] LABS: TOTAL PROTEIN 6.1 GM/DL (6.4-8.2)
[2022-07-23 12:18] LABS: BILIRUBIN,TOTAL 0.3 MG/DL (0.1-1.0)
[2022-07-23 12:20] LABS: CREATININE SERUM 0.73 MG/DL (0.60-1.30)
--- NOTE | 2022-07-23 12:59 | Physical Therapy Daily Note ---
PT Daily Note-Current Subjective Pt. in bed, does not want to complete PT due to c/o pain in the R hip but agrees to go to the bathroom. No objective pain rating given. Pain Section J - Health Conditions 1. Rarely or not at all 2. Occasionally 3. Frequently 4. Almost constantly 8. Unable to answer Pain Effect on Sleep: 4 Pain Interference with Therapy: 4 Pain Interference w/Day-to-Day: 4 Transfers SCALE: Activities may be completed with or without assistive devices. 1-Wtymwuwyjj-xqtdvff completes the activity by him/herself with no assistance from a helper. 5-Set-up or Clean-up Assistance-helper sets up or cleans up; patient completes activity. [place] assists only prior to or following the activity. 4-Supervision or Touching Assistance-helper provides verbal cues and/or touching/steadying and/or contact guard assistance as patient completes activity. Assistance may be provided throughout the activity or intermittently. 3-Partial/Moderate Assistance-helper does LESS THAN HALF the effort. [place] lifts, holds or supports trunk or limbs, but provides less than half the effort. 2-Substantial/Maximal Assistance-helper does MORE THAN HALF the effort. [place] lifts or holds trunk or limbs and provides more than half the effort. 5-Dpdqfbzaw-vppmrl does ALL the effort. Patient does none of the effort to complete the activity. Or, the assistance of 2 or more helpers is required for the patient to complete the activity. If activity was not attempted, code reason: 7-Patient Refused. 9-Not Applicable-not attempted and the patient did not perform the activity before the current illness, exacerbation or injury. 10-Not Attempted due to Environmental Limitations-(lack of equipment, weather restraints, etc.). 88-Not Attempted due to Medical Conditions or Safety Concerns. Sit to Lying (QC): 4 Lying to Sitting/Side of Bed(Q: 4 Sit to Stand (QC): 4 Toilet Transfer (QC): 4 Weight Bearing Weight Bearing/Tolerated Gait Training Does the Patient Walk?: Yes Distance: 2 x 10 ft Walk 10 feet (QC): 4 Gait Persons Needed: 1 Gait Assistive Device: FWW Assessment Current Status: Fair Progress Pt. self-limits gait due to c/o R hip pain. She needs assist with R LE during supine to/from sit transfers. Pt. is steady with the walker but refuses increasing gait distance this date. Pt. returned to bed with call light and all needs met. PT Supervisor Maintenance Goals Supervisor Maintenance Goals PT Supervisor Maintenance Goals Time Frame: Jul 27, 2022 Roll Left & Right (QC): 3 Sit to Lying (QC): 3 Lying-Sitting on Side/Bed(QC): 3 Sit to Stand (QC): 3 Chair/Gib-lu-Vbkcv Xfer(QC): 3 Walk 10 feet (QC): 3 PT Plan Treatment/Plan Treatment Plan: Continue Plan of Care Treatment Plan: Bed Mobility, Education, Functional Activity Trace, Functional Strength, Gait, Safety, Therapeutic Exercise, Transfers Treatment Duration: Jul 27, 2022 Frequency: 6 times per week Estimated Hrs Per Day: .25 hour per day Patient and/or Family Agrees t: Yes Time Time In: 824 Time Out: 837 DATE: Jul 23, 2022 Total Billed Treatment Time: 13 Total Billed Treatment 1, FA 13' JAKE DESAI PT Jul 23, 2022 12:59
[2022-07-23 15:36] VITALS: BP 180/74
[2022-07-23 19:37] VITALS: BP 179/73
[2022-07-24] VITALS (7 sets, daily range): BP systolic 125–167; BP diastolic 58–76
[2022-07-24] MEDS: NS IV 1000 ML 1,000 ML IV SCH ×3 (04:20→19:40)
[2022-07-24] MEDS: ALPRAZolam 0.5 MG (XANAX) TAB PO PRN ×2 (04:38→19:58)
[2022-07-24] MEDS: ACETAMINOPHEN 325 MG TABLET PO PRN (04:38)
[2022-07-24 05:49] LABS: BASOPHILS % (AUTO) 0 % (0-10); EOSINOPHILS % (AUTO) 0 % (0-10); HEMATOCRIT 33 % (35-52); HEMOGLOBIN 10.2 g/dL (11.5-16.0); LYMPHOCYTES # (AUTO) 1.2 10^3/uL (1.0-4.0); LYMPHOCYTES % (AUTO) 30 % (12-44); MEAN CORPUSCULAR HEMOGLOBIN 24 pg (25-34); MEAN CORPUSCULAR HGB CONC 31 g/dL (32-36); MEAN CORPUSCULAR VOLUME 80 fL (80-99); MEAN PLATELET VOLUME 9.9 fL (9.0-12.2); MONOCYTES # (AUTO) 0.3 10^3/uL (0.0-1.0); MONOCYTES % (AUTO) 8 % (0-12); NEUTROPHILS # (AUTO) 2.6 10^3/uL (1.8-7.8); NEUTROPHILS % (AUTO) 61 % (42-75); PLATELET COUNT 203 10^3/uL (130-400); WHITE BLOOD COUNT 4.2 10^3/uL (4.3-11.0)
[2022-07-24 05:58] LABS: ALBUMIN 3.4 GM/DL (3.2-4.5); POTASSIUM 3.6 MMOL/L (3.6-5.0)
--- NOTE | 2022-07-24 05:58 | Progress Note - Hospitalist ---
Subjective HPI/CC On Admission Date Seen by Provider: Jul 24, 2022 Time Seen by Provider: 11:00 Subjective/Events-last exam Patient moved closer to the nurses station due to bizarre behavior Incontinent most of the time Sleeps most of the time Just had a large BM Review of Systems General: Fatigue, Malaise Musculoskeletal: leg pain Neurological: Confusion Objective Exam Vital Signs Vital Signs Date Time Temp Pulse Resp B/P (MAP) Pulse Ox O2 Delivery O2 Flow Rate FiO2 07/24/22 11:40 36.0 54 18 147/63 (91) 96 Room Air Capillary Refill : Less Than 3 Seconds General Appearance: No Apparent Distress, WD/WN, Chronically ill Respiratory: Lungs Clear, Normal Breath Sounds Cardiovascular: Regular Rate, Rhythm Neurologic/Psychiatric: Alert, Depressed Affect, Disoriented Results/Procedures Lab Laboratory Tests 07/24/22 05:00 Patient resulted labs reviewed. Assessment/Plan Assessment and Plan Assess & Plan/Chief Complaint Assessment: Acute on chronic right hip pain Unable to ambulate Dementia Atrial fibrillation Hypokalemia Plan: Pain control Aggressive therapy ROSEANN LARA DO Jul 24, 2022 05:58
[2022-07-24 06:00] LABS: CALCIUM 8.6 MG/DL (8.5-10.1)
[2022-07-24 06:01] LABS: TOTAL PROTEIN 6.5 GM/DL (6.4-8.2)
[2022-07-24 06:03] LABS: BILIRUBIN,TOTAL 0.3 MG/DL (0.1-1.0)
[2022-07-24 06:05] LABS: CREATININE SERUM 0.74 MG/DL (0.60-1.30)
[2022-07-24] MEDS: KCL 20 MEQ TAB (K-DUR) PO SCH (06:05)
[2022-07-24] MEDS: buPROPion SR 150 MG (WELLBUTRIN SR) TAB PO SCH (10:16)
[2022-07-24] MEDS: amLODIPine 5 MG (NORVASC) TAB PO SCH (10:16)
[2022-07-24] MEDS: RIVAROXABAN 15 MG TABLET (XARELTO) PO SCH (10:16)
[2022-07-24] MEDS: PANTOPRAZOLE 40 MG (PROTONIX) TAB PO SCH (10:16)
[2022-07-24] MEDS: GABAPENTIN 300 MG (NEURONTIN) CAP PO SCH (10:17)
[2022-07-25] MEDS ORDERED: ONDANSETRON 4 MG/2 ML (SDV) Z0FRAN IVP PRN (02:00)
[2022-07-25 03:48] VITALS: BP 158/68
[2022-07-25] MEDS: NS IV 1000 ML 1,000 ML IV SCH (05:30)
[2022-07-25] MEDS: KCL 20 MEQ TAB (K-DUR) PO SCH (05:43)
[2022-07-25 06:36] LABS: BASOPHILS % (AUTO) 0 % (0-10); EOSINOPHILS % (AUTO) 0 % (0-10); HEMATOCRIT 34 % (35-52); HEMOGLOBIN 10.3 g/dL (11.5-16.0); LYMPHOCYTES # (AUTO) 1.3 10^3/uL (1.0-4.0); LYMPHOCYTES % (AUTO) 19 % (12-44); MEAN CORPUSCULAR HEMOGLOBIN 25 pg (25-34); MEAN CORPUSCULAR HGB CONC 31 g/dL (32-36); MEAN CORPUSCULAR VOLUME 80 fL (80-99); MEAN PLATELET VOLUME 9.4 fL (9.0-12.2); MONOCYTES # (AUTO) 0.3 10^3/uL (0.0-1.0); MONOCYTES % (AUTO) 4 % (0-12); NEUTROPHILS # (AUTO) 5.4 10^3/uL (1.8-7.8); NEUTROPHILS % (AUTO) 76 % (42-75); PLATELET COUNT 202 10^3/uL (130-400); WHITE BLOOD COUNT 7.1 10^3/uL (4.3-11.0)
--- NOTE | 2022-07-25 06:39 | Progress Note - Hospitalist ---
Subjective HPI/CC On Admission Date Seen by Provider: Jul 25, 2022 Time Seen by Provider: 11:00 Subjective/Events-last exam No major issues Had a large BM today Took her IV out No other concerns Review of Systems Musculoskeletal: leg pain Neurological: Confusion Objective Exam Vital Signs Vital Signs Date Time Temp Pulse Resp B/P (MAP) Pulse Ox O2 Delivery O2 Flow Rate FiO2 07/25/22 15:42 37.0 65 18 150/68 (95) 92 Room Air Capillary Refill : Less Than 3 Seconds General Appearance: No Apparent Distress, WD/WN, Chronically ill Respiratory: Lungs Clear, Normal Breath Sounds Cardiovascular: Regular Rate, Rhythm Neurologic/Psychiatric: Alert, Disoriented Results/Procedures Lab Laboratory Tests 07/25/22 06:26 Patient resulted labs reviewed. Assessment/Plan Assessment and Plan Assess & Plan/Chief Complaint Assessment: Acute on chronic right hip pain Unable to ambulate Dementia Atrial fibrillation Hypokalemia Plan: Pain control Aggressive therapy ROSEANN LARA DO Jul 25, 2022 06:39
[2022-07-25 06:54] LABS: ALBUMIN 3.4 GM/DL (3.2-4.5); BILIRUBIN,TOTAL 0.3 MG/DL (0.1-1.0); CALCIUM 8.3 MG/DL (8.5-10.1); CREATININE SERUM 0.76 MG/DL (0.60-1.30); POTASSIUM 3.8 MMOL/L (3.6-5.0); TOTAL PROTEIN 6.7 GM/DL (6.4-8.2)
[2022-07-25 07:29] VITALS: BP 152/67
[2022-07-25] MEDS: RIVAROXABAN 15 MG TABLET (XARELTO) PO SCH (08:28)
[2022-07-25] MEDS: ALPRAZolam 0.5 MG (XANAX) TAB PO PRN ×2 (08:28→19:43)
[2022-07-25] MEDS: GABAPENTIN 300 MG (NEURONTIN) CAP PO SCH (08:28)
[2022-07-25] MEDS: buPROPion SR 150 MG (WELLBUTRIN SR) TAB PO SCH (08:28)
[2022-07-25] MEDS: PANTOPRAZOLE 40 MG (PROTONIX) TAB PO SCH (08:28)
[2022-07-25] MEDS: amLODIPine 5 MG (NORVASC) TAB PO SCH (08:28)
--- NOTE | 2022-07-25 10:11 | Physical Therapy Daily Note ---
PT Daily Note-Current Subjective Patient is incontinent urine requiring dependent assist to cleanse and change. Patient is very confused and agitated. Pain Section J - Health Conditions 1. Rarely or not at all 2. Occasionally 3. Frequently 4. Almost constantly 8. Unable to answer Pain Effect on Sleep: 8 Pain Interference with Therapy: 8 Pain Interference w/Day-to-Day: 8 Mental Status Patient Orientation: Confused Attachments: IV Transfers SCALE: Activities may be completed with or without assistive devices. 9-Yzsxczmnui-oirksuw completes the activity by him/herself with no assistance from a helper. 5-Set-up or Clean-up Assistance-helper sets up or cleans up; patient completes activity. [place] assists only prior to or following the activity. 4-Supervision or Touching Assistance-helper provides verbal cues and/or touching/steadying and/or contact guard assistance as patient completes activity. Assistance may be provided throughout the activity or intermittently. 3-Partial/Moderate Assistance-helper does LESS THAN HALF the effort. [place] lift s, holds or supports trunk or limbs, but provides less than half the effort. 2-Substantial/Maximal Assistance-helper does MORE THAN HALF the effort. [place] lifts or holds trunk or limbs and provides more than half the effort. 7-Uzwnxtqrq-zegvhh does ALL the effort. Patient does none of the effort to complete the activity. Or, the assistance of 2 or more helpers is required for the patient to complete the activity. If activity was not attempted, code reason: 7-Patient Refused. 9-Not Applicable-not attempted and the patient did not perform the activity before the current illness, exacerbation or injury. 10-Not Attempted due to Environmental Limitations-(lack of equipment, weather restraints, etc.). 88-Not Attempted due to Medical Conditions or Safety Concerns. Lying to Sitting/Side of Bed(Q: 3 Sit to Stand (QC): 3 Chair/Cxp-yn-Koiif Xfer(QC): 3 Weight Bearing Weight Bearing/Tolerated Gait Training Distance: 10' Walk 10 feet (QC): 2 Gait Assistive Device: FWW very resistive with all mobility and refused to ambulate Assessment Patient is very resistive with all activity and mobility. Patient requires redirection to attend to task. Patient is up in recliner with needs met. RN present. PT Penitentiary Goals Penitentiary Goals PT Superintendent Compressor Stations Goals Time Frame: Jul 27, 2022 Roll Left & Right (QC): 3 Sit to Lying (QC): 3 Lying-Sitting on Side/Bed(QC): 3 Sit to Stand (QC): 3 Chair/Bdx-nk-Lzoll Xfer(QC): 3 Walk 10 feet (QC): 3 PT Plan Treatment/Plan Treatment Plan: Continue Plan of Care Treatment Plan: Bed Mobility, Education, Functional Activity Trace, Functional Strength, Gait, Safety, Therapeutic Exercise, Transfers Treatment Duration: Jul 27, 2022 Frequency: 6 times per week Estimated Hrs Per Day: .25 hour per day Patient and/or Family Agrees t: Yes Time Time In: 800 Time Out: 827 DATE: Jul 25, 2022 Total Billed Treatment Time: 27 Total Billed Treatment 1 visit FA x 2 27 min MARCO ANTONIO PEREA PT Jul 25, 2022 10:11
[2022-07-25 11:27] VITALS: BP 143/63
--- NOTE | 2022-07-25 13:30 | Occupational Therapy Eval ---
OT Evaluation-General/PLF Medical Diagnosis Admission Date Jul 19, 2022 at 19:55 Medical Diagnosis: Degenerative Arthritis of right hip, Debilitated, Hypokalemia Onset Date: Jul 19, 2022 Therapy Diagnosis Therapy Diagnosis: Weakness, Decreased ADL skills Precautions Precautions/Isolations: Fall Prevention, Standard Precautions Weight Bear Status Weight Bearing Restriction: Weight Bearing/Tolerated Referral Physician: Danielle Referral Reason: Activity Tolerance, Self Care, Evaluation/Treatment, Strengthening/ROM Medical History Pertinent Medical History: Atrial Fib, OA Current History According to chart, pt. came to ER with complaint of chronic hip pain. She stated that she was living with someone and it was not a good situation. Pt. does not elaborate with OT, but states that she is trying to get into a place of her own to live. Reviewed History: Yes Social History Home: Single Level Current Living Status: Entry Into Home: Stairs Without Railing Steps Into Home: 2 ADL-Prior Level of Function SCALE: Activities may be completed with or without assistive devices. 0-Vrmbjrsdat-fuapzqw completes the activity by him/herself with no assistance from a helper. 5-Set-up or Clean-up Assistance-helper sets up or cleans up; patient completes activity. [place] assists only prior to or following the activity. 4-Supervision or Touching Assistance-helper provides verbal cues and/or touching/steadying and/or contact guard assistance as patient completes activity. Assistance may be provided throughout the activity or intermittently. 3-Partial/Moderate Assistance-helper does LESS THAN HALF the effort. [place] lifts, holds or supports trunk or limbs, but provides less than half the effort. 2-Substantial/Maximal Assistance-helper does MORE THAN HALF the effort. [place] lifts or holds trunk or limbs and provides more than half the effort. 2-Njkcbycqh-gqziss does ALL the effort. Patient does none of the effort to complete the activity. Or, the assistance of 2 or more helpers is required for the patient to complete the activity. If activity was not attempted, code reason: 7-Patient Refused. 9-Not Applicable-not attempted and the patient did not perform the activity before the current illness, exacerbation or injury. 10-Not Attempted due to Environmental Limitations-(lack of equipment, weather restraints, etc.). 88-Not Attempted due to Medical Conditions or Safety Concerns. ADL PLOF Comments Pt. verbalizes that she was taking care of herself, but that it "wasn't that good." She does not state what she had difficulty with. She does report that she was using a walker to ambulate. She states that she is supposed to have hip surgery, but that it got postponed. Pt. keeps eyes closed throughout session on and off, but is able to stay awake. Self Care: Unknown Functional Cognition: Unknown DME/Equipment Comments Walker OT Current Status Subjective Pt. reports pain in her right hip, but does not state pain level. Appearance Pt. up in chair. Tray in front of her. She has not attempted to eat or initiated cutting up food. States that she is not hungry. Mental Status/Objective Patient Orientation: Unable to Assess Current Upper Extremity ROM Pt. states that she has "trouble" in her shoulders, but does not state what. She lifts her arms to just over 90*. ADL-Treatment On/Off Footwear (QC): 2 Toileting Hygiene (QC): 1 Other Treatments Pt. up in chair. Agrees to work on sit-stands. Requires mod/max assist for sit to stand out of chair. Once she was standing, it was noted that she had been incontinent of urine in chair. Required max assist to cleanse charo area in stance and change pads. Pt. does not seem alarmed, but does indicate that she is aware that she urinated on self. Had not told this therapist or called out when doing so. After full charo care, pt. sits back in chair with mod assist and max cues for safety. Pt. states that she is not hungry, but OT opens all lunch packages and cuts up food. Pt. encouraged to eat. Pt. with call light, phone, and tray in front. All needs met. Education OT Patient Education: Correct positioning, Modified ADL techniques, Progress toward Goal/Update tx plan, Purpose of tx/functional activities, Reviewed precautions, Rehab process, Transfer techniques Teaching Recipient: Patient Teaching Methods: Demonstration, Discussion Response to Teaching: Verbalize Understanding, Return Demonstration, Reinforcement Needed OT Short Term Goals Short Term Goals Time Frame: Aug 01, 2022 Eatin Oral hygiene: 3 Toileting hygiene: 3 Shower/bathe self: 3 Upper body dressin Lower body dressin Putting on/taking off footwear: 3 OT Associate Drafter Goals Alf Goals Time Frame: Aug 15, 2022 Eating (QC): 6 Oral Hygiene (QC): 6 Toileting Hygiene (QC): 5 Shower/Bathe Self (QC): 5 Upper Body Dressing (QC): 5 Lower Body Dressing (QC): 4 On/Off Footwear (QC): 4 Additional Goals: 1-Demonstrate ADL Tasks, 2-Verbalize Understanding, 3- ImproveStrength/Trace 1=Demonstrate adherence to instructed precautions during ADL tasks. 2=Patient will verbalize/demonstrate understanding of assistive devices/modifications for ADL. 3=Patient will improve strength/tolerance for activity to enable patient to perform ADL's. OT Education/Plan Problem List/Assessment Assessment: Decreased Activ Tolerance, Dependent Transfers, Impaired Cognition, Impaired Funct Balance, Impaired I ADL's, Impaired Self-Care Skills Discharge Recommendations Plan/Recommendations: Continue POC Therapy Discharge Recommendati: Post Acute OT Treatment Plan/Plan of Care Treatment,Training & Education: Yes Patient would benefit from OT for education, treatment and training to promote independence in ADL's, mobility, safety and/or upper extremity function for ADL's. Plan of Care: ADL Retraining, Functional Mobility, UE Funct Exercise/Act Treatment Duration: Aug 15, 2022 Frequency: 3 times per week (3-5x/week) Estimated Hrs Per Day: .25 hour per day Agreement: Yes Rehab Potential: Fair Time Start Time: 11:55 Stop Time: 12:10 DATE: Jul 25, 2022 Total Time Billed (hr/min): 15 Billed Treatment Time 1, EVH x 15minutes BEBO ALEJANDRE OT Jul 25, 2022 13:30
[2022-07-25 15:42] VITALS: BP 150/68
[2022-07-25 20:50] VITALS: BP 138/60
[2022-07-25 23:26] VITALS: BP 143/67
[2022-07-26 03:15] VITALS: BP 134/64
[2022-07-26] MEDS: KCL 20 MEQ TAB (K-DUR) PO SCH (06:48)
[2022-07-26 07:44] VITALS: BP 143/64
[2022-07-26] MEDS: GABAPENTIN 300 MG (NEURONTIN) CAP PO SCH (08:14)
[2022-07-26] MEDS: buPROPion SR 150 MG (WELLBUTRIN SR) TAB PO SCH (08:14)
[2022-07-26] MEDS: amLODIPine 5 MG (NORVASC) TAB PO SCH (08:14)
[2022-07-26] MEDS: PANTOPRAZOLE 40 MG (PROTONIX) TAB PO SCH (08:15)
[2022-07-26] MEDS: RIVAROXABAN 15 MG TABLET (XARELTO) PO SCH (08:15)
[2022-07-26] MEDS ORDERED: BUPR150T24 PO (10:06)
[2022-07-26] MEDS ORDERED: GABA300C PO ×2 (10:06)
[2022-07-26] MEDS ORDERED: ACET325T49 PO (10:06)
[2022-07-26] MEDS ORDERED: PANT40TA52 PO (10:06)
[2022-07-26] MEDS ORDERED: AMLO-250 PO (10:06)
[2022-07-26] MEDS ORDERED: RIVA15TA2 PO (10:06)
[2022-07-26] MEDS ORDERED: DILT360C30 PO (10:06)
[2022-07-26] MEDS ORDERED: ALPR0.5T7 PO (10:06)
[2022-07-26] MEDS ORDERED: POTA-169 PO (10:06)
[2022-07-26] MEDS ORDERED: TRM50T PO (10:06)
--- NOTE | 2022-07-26 10:08 | Discharge Summary ---
Discharge Summary Hospital Course Was the Problem List Reviewed?: Yes Problems/Dx: (1) Degenerative Arthritis (Right Hip), Debilitated, Hypolalemia (2) Hypokalemia Status: Acute (3) Chronic right hip pain Status: Acute (4) Atrial fibrillation Status: Acute Qualifiers: Qualified Codes: I48.91 - Unspecified atrial fibrillation (5) Debilitated Status: Acute Hospital Course Date of Admission: Jul 19, 2022 at 19:55 Admission Diagnosis : Family Physician/Provider: Vaughn Boggs DO Date of Discharge: 07/26/22 Discharge Diagnosis: [ ] Hospital Course: Lengthy hospital course awaiting alf placement. Hypokalemia resolved with supplementation. Overall She Was Unwilling to out of bed except for a few times in a chair and most of the time she laid in bed and slept she was maintained on anticoagulation and supportive care was continued until she went to the alf. Overall prognosis extremely poor. Labs and Pending Lab Test: Home Meds Active Klor-Con M20 (Potassium Chloride) 20 Meq Tab.er.prt 10 Meq PO DAILY@0700 Alprazolam 0.5 Mg Tablet 0.5 Mg PO Q6H PRN Acetaminophen 325 Mg Tablet 650 Mg PO Q8H PRN Tramadol HCl 50 Mg Tablet 50 Mg PO Q8H PRN Xarelto Tablet (Rivaroxaban) 15 Mg Tablet 15 Mg PO DAILY@0800 Amlodipine Besylate 5 Mg Tablet 5 Mg PO DAILY Diltiazem ER (Diltiazem HCl) 360 Mg Capsule.er 360 Mg PO DAILY Neurontin (Gabapentin) 300 Mg Capsule 300 Mg PO 1200,2000 Neurontin (Gabapentin) 300 Mg Capsule 600 Mg PO DAILY TAKES 2 (300MG) CAPS Bupropion Xl (Bupropion HCl) 150 Mg Tab.er.24h 150 Mg PO DAILY Pantoprazole Sodium 40 Mg Tablet.dr 40 Mg PO DAILY Reported Xarelto (Rivaroxaban) 20 Mg Tablet 20 Mg PO DAILY Assessment/Pt Instructions PCP alf rounds Discharge Planning: <30 minutes discharge planning Discharge Instructions Discharge Diet: No Restrictions Discharge Physical Examination Vital Signs Vital Signs Date Time Temp Pulse Resp B/P (MAP) Pulse Ox O2 Delivery O2 Flow Rate FiO2 07/26/22 08:00 92 Room Air 07/26/22 07:44 36.2 63 18 143/64 (90) Allergies: Coded Allergies: cyclobenzaprine (Verified Allergy, Unknown, 06/05/22) Discharge Summary Date of Admission Jul 19, 2022 at 19:55 Date of Discharge Discharge Date: Jul 26, 2022 Discharge Diagnosis Assessment: Acute on chronic right hip pain Unable to ambulate Dementia Atrial fibrillation Hypokalemia Plan: Pain control Aggressive therapy ROSEANN LARA DO Jul 26, 2022 10:08
--- NOTE | 2022-07-26 10:08 | Discharge Inst-Skilled Nursing ---
Discharge Inst-Skilled NF Reconcile Patient Problems Problems Reviewed?: Yes Patient Instructions Patient Problems: Debility Goal: [place] Consult/Follow Up/Orders Follow Up Appt.: PCP ID rounds Skilled NF Admit to: [facility] Certification (SNF) I certify that SNF services are required to be given on an inpatient basis because of the above named patient's need for custodial care on a continuing basis for the conditions(s) for which he/she was receiving inpatient hospital services prior to his/her transfer to the SNF. [facility] Facility Order: Nursing Services, [facility] [employer] Grinder-Evaluate & Treat, Physical Therapy-Evaluate & Treat, Speech Language-Evaluate & Treat Oxygen Delivery Method: Room Air Discharge Diet: No Restrictions Resuscitation Status: Full Code New & Resume Previous Orders New Medications: Acetaminophen (Acetaminophen) 325 Mg Tablet 650 MG PO Q8H PRN for PAIN-MILD (1-4), #30 TAB Alprazolam (Alprazolam) 0.5 Mg Tablet 0.5 MG PO Q6H PRN for ANXIETY, #20 TAB Potassium Chloride (Klor-Con M20) 20 Meq Tab.er.prt 10 MEQ PO DAILY@0700, #30 EA Rivaroxaban (Xarelto Tablet) 15 Mg Tablet 15 MG PO DAILY@0800, #30 TAB Tramadol HCl (Tramadol HCl) 50 Mg Tablet 50 MG PO Q8H PRN for PAIN-MODERATE (5-7), #30 TAB Continued Medications: Amlodipine Besylate (Amlodipine Besylate) 5 Mg Tablet 5 MG PO DAILY, #30 TAB (This prescription has been renewed) Bupropion HCl (Bupropion Xl) 150 Mg Tab.er.24h 150 MG PO DAILY, #30 TAB (This prescription has been renewed) Diltiazem HCl (Diltiazem ER) 360 Mg Capsule.er 360 MG PO DAILY, #30 CAP (This prescription has been renewed) Gabapentin (Neurontin) 300 Mg Capsule 600 MG PO DAILY, #60 CAP (This prescription has been renewed) TAKES 2 (300MG) CAPS Gabapentin (Neurontin) 300 Mg Capsule 300 MG PO 1199,1999, #60 CAP (This prescription has been renewed) Pantoprazole Sodium (Pantoprazole Sodium) 40 Mg Tablet.dr 40 MG PO DAILY, #30 TAB (This prescription has been renewed) Discontinued Medications: Rivaroxaban (Xarelto) 20 Mg Tablet 20 MG PO DAILY, TAB Patricia S Dueñas Jul 26, 2022 10:07 PATRICIA DUEÑAS DO Jul 26, 2022 10:08
[2022-07-26 11:09] VITALS: BP 138/64
--- NOTE | 2022-07-26 13:56 | Occupational Ther Daily Note ---
OT Current Status-Daily Note Subjective Pt confused, unaware she is discharging today. She reports that she is scheduled for surgery and she will discharge after procedure. No notes in chart stating pt will have surgery. Appearance Pt left supine in bed, all needs within reach Mental Status/Objective Patient Orientation: Person, Confused, Situation ADL-Treatment Therapy Code Descriptions/Definitions Functional [place] Measure: 0=Not Assessed/NA 4=Minimal Assistance 1=Total Assistance 5=Supervision or Setup 2=Maximal Assistance 6=Modified [place] 3=Moderate Assistance 7=Complete IndependenceSCALE: Activities may be completed with or without assistive devices. 2-Bcmbomxdia-zgsgfcb completes the activity by him/herself with no assistance from a helper. 5-Set-up or Clean-up Assistance-helper sets up or cleans up; patient completes activity. [place] assists only prior to or following the activity. 4-Supervision or Touching Assistance-helper provides verbal cues and/or touching/steadying and/or contact guard assistance as patient completes activity. Assistance may be provided throughout the activity or intermittently. 3-Partial/Moderate Assistance-helper does LESS THAN HALF the effort. [place] lifts, holds or supports trunk or limbs, but provides less than half the effort. 2-Substantial/Maximal Assistance-helper does MORE THAN HALF the effort. [place] lifts or holds trunk or limbs and provides more than half the effort. 3-Fffabjlfo-ehmnfv does ALL the effort. Patient does none of the effort to complete the activity. Or, the assistance of 2 or more helpers is required for the patient to complete the activity. If activity was not attempted, code reason: 7-Patient Refused. 9-Not Applicable-not attempted and the patient did not perform the activity before the current illness, exacerbation or injury. 10-Not Attempted due to Environmental Limitations-(lack of equipment, weather restraints, etc.). 88-Not Attempted due to Medical Conditions or Safety Concerns. Other Treatment Pt reclined in bed, very little lunch eaten. When asked if she was not hungry, pt states "I am, I just don't have my dentures here to eat." Discussion on alternative soft foods. Attempt at performing UE exercises however pt perseverates on past living situation and "upcoming surgery." Difficult to redirect. Activity terminated early due to pt's poor attention/participation. Education OT Patient Education: Correct positioning, Exercise program, Purpose of tx/functional activities Teaching Recipient: Patient Teaching Methods: Demonstration Response to Teaching: Reinforcement Needed OT Short Term Goals Short Term Goals Time Frame: Aug 01, 2022 Eatin Oral hygiene: 3 Toileting hygiene: 3 Shower/bathe self: 3 Upper body dressin Lower body dressin Putting on/taking off footwear: 3 OT [place] Goals Nursing Home Goals Time Frame: Aug 15, 2022 Eating (QC): 6 Oral Hygiene (QC): 6 Toileting Hygiene (QC): 5 Shower/Bathe Self (QC): 5 Upper Body Dressing (QC): 5 Lower Body Dressing (QC): 4 On/Off Footwear (QC): 4 Additional Goals: 1-Demonstrate ADL Tasks, 2-Verbalize Understanding, 3- ImproveStrength/Trace 1=Demonstrate adherence to instructed precautions during ADL tasks. 2=Patient will verbalize/demonstrate understanding of assistive devices/modifications for ADL. 3=Patient will improve strength/tolerance for activity to enable patient to perform ADL's. OT Education/Plan Problem List/Assessment Assessment: Decreased Activ Tolerance, Decreased UE Strength, Impaired Cognition Discharge Recommendations Plan/Recommendations: Continue POC Treatment Plan/Plan of Care Treatment,Training & Education: Yes Patient would benefit from OT for education, treatment and training to promote independence in ADL's, mobility, safety and/or upper extremity function for ADL's. Plan of Care: ADL Retraining, Functional Mobility, UE Funct Exercise/Act Treatment Duration: Aug 15, 2022 Frequency: 3 times per week (3-5x/week) Estimated Hrs Per Day: .25 hour per day Agreement: Yes Rehab Potential: Fair Time Start Time: 13:36 Stop Time: 13:47 DATE: Jul 26, 2022 Total Time Billed (hr/min): 11 Billed Treatment Time 1 visit EX Lnua Nesbitt OT Jul 26, 2022 13:56
== END 2022-07-26 15:15 ==
LOC: EDUNIT# 17:06 → ER 17:07 → 4TH 19:55 → UNDOADMOB 19:55 → 4TH 20:15 → UNDODISOB 07-26 15:15
PROVIDERS: ADMIT Family Medicine; ATTEND Internal Medicine
DX: M16.11 Unilateral primary osteoarthritis, right hip (principal); E87.6 Hypokalemia; G89.29 Other chronic pain; I48.91 Unspecified atrial fibrillation; R53.81 Other malaise; Z79.899 Other long term (current) drug therapy; Z28.310 Unvaccinated for COVID-19; Z87.891 Personal history of nicotine dependence; Z79.01 Long term (current) use of anticoagulants
CPT/HCPCS: 36410; 76937; 80048 ×2; 80053 ×4; 80306; 81000; 83735; 85025 ×5; 96361 ×2; 96375; 97110 ×2; 97116; 97162; 97167; 97530 ×2; 99283; C1751; G0378; 36415

== ENCOUNTER 2022-08-02 05:33 | Outpatient (CLI) | payer MEDICARE, MEDICAID ==
[~2022-08-02 05:33] MED LIST changes: +ACET325T49 PO; +ALPR0.5T7 PO; +AMLO-250 PO; +BUPR150T24 PO; +DILT360C30 PO; +GABA300C PO; +POTA-169 PO; +RIVA15TA2 PO; +TRM50T PO
== END 2022-08-02 12:44 | disposition home or self-care (01) ==
LOC: PREOP 05:33
PROVIDERS: ATTEND Orthopaedic Surgery
DX: Z01.818 Encounter for other preprocedural examination (principal)

== ENCOUNTER 2022-08-08 09:59 | Inpatient (IN) | payer MEDICARE, MEDICAID ==
[2022-08-08] VITALS (10 sets, daily range): BP systolic 138–174; BP diastolic 60–85
[~2022-08-08] VITALS: Ht 165.1 cm; Wt 86.1 kg
[2022-08-08] MEDS ORDERED: TRANEXAMIC ACID 3,000 MG/150 ML NS IRRIGATION IR ONE ×2 (11:00)
[2022-08-08] MEDS ORDERED: RT-ALBUTEROL SULF 2.5 MG/3 ML PRE-MIX VIAL INH ONE (11:15)
[2022-08-08] MEDS ORDERED: LACTATED RINGERS 1,000 ML IV PRN (11:30)
[2022-08-08] MEDS ORDERED: ceFAZolin INJECTION 2,000 MG ONE (12:12)
[2022-08-08] MEDS ORDERED: NS (IVPB) 50 ML ONE (12:12)
[2022-08-08] MEDS ORDERED: ceFAZolin INJECTION 2,000 MG in NS (IVPB) 50 ML IV ONE (12:15)
[2022-08-08] MEDS ORDERED: proPOfol 200 MG/20 ML (DIPRIVAN) VIAL IV ONE (13:23)
[2022-08-08] MEDS ORDERED: ROCURONIUM 50 MG/5 ML (ZEMURON) VIAL IV ONE (13:23)
[2022-08-08] MEDS ORDERED: LIDOCAINE PF 2% 5 ML (XYLOCAINE) VIAL ONE (13:23)
[2022-08-08] MEDS ORDERED: fentaNYL INJ 100 MCG/2 ML AMP ONE ×2 (13:23→14:37)
[2022-08-08] MEDS ORDERED: MIDAZOLAM 2 MG/2 ML (VERSED) VIAL ONE (13:23)
[2022-08-08] MEDS ORDERED: SEVOFLURANE (ULTANE) 15 ML INHAL SOLN ONE ×2 (13:23→15:29)
[2022-08-08] MEDS ORDERED: ROPIVACAINE 5MG/ML 30ML VIAL ONE (15:06)
--- NOTE | 2022-08-08 16:17 | Operative Report - Ortho ---
Operative Report Surgeon (s)/Obstetrics Gyn Physician (s) Surgeon BILLY MARAVILLA MD Obstetrics Gyn Physician n/a Pre-Operative Diagnosis RIGHT HIP PRIMARY OSTEOARTHRITIS Post-Operative Diagnosis same Operative Report Date of Procedure: Aug 08, 2022 Name of Procedure Performed: Right Total Hip Arthroplasty Description & Findings After obtaining informed consent and marking the patient in the preoperative holding area, the patient did receive antibiotics and was taken to the operating room. General anesthesia was induced and patient was positioned in the lateral decubitus position with the left side up. Left lower extremity was prepped and draped in the usual sterile fashion. Surgical timeout was taken. Posterolateral approach was utilized. Capsule and external rotators were taken down in one layer. Hip was dislocated without difficulty. Femoral neck osteotomy was performed and femoral head was removed. Acetabulum was exposed. Labrum and soft tissue was removed from the acetabulum. Sequential reaming was began beginning with a 44 mm reamer and reaming to a 50 mm. 50 mm trial was placed and had good fit. Trial was removed and the acetabulum was lavaged with normal saline; a 50 mm cup was impacted into place and had excellent press fit. A trial liner was put into place. Attention was turned to the femoral side, a [employer] cutter osteotome was used to removed bone near the greater trochanter. Canal finder was inserted followed by the lateralizing reamer. Sequential broaching was began with a 0 and was broached to a 3. Multiple trialings were performed; ultimately, the size 3 broach was removed and upsized to a 4. Trial 127 degree neck and +5 mm head were put into place. Hip was located and was found to have leg lengths that were grossly equal; the hip was stable in position of sleep, and stable in flexion and internal rotation. This was accepted. Hip was dislocated. Acetabulum was exposed. Trial liner was removed and a polyethylene liner was locked into place; freer was used to check the locking mechanism. Attention was turned back to the femur, broach was removed and the canal was irrigated. A size 4 Accolade II was impacted into place and set at the same level as the broach. A +5 mm ceramic head was impacted onto the mcgovern taper of the stem. Hip was once again located and found to have grossly equal leg lengths with stability in position of sleep as well as flexion and internal rotation. A dilute betadine soak was performed followed by irrigation. Tranexamic acid was applied for hemostasis. Capsular repair was performed with #2 fiberwire. The fascial layer was closed with #2 Stratafix. The subcutaneous layer was closed with 2-0 Vicryl. Skin was closed with [place]. Wound was dressed with xeroform, 4x4s, ABD, and tape. Patient was placed in abduction pillow and transferred to hospital bed without difficulty and was stable to the recovery room. Anesthesia Type General Estimated Blood Loss 300 mL Specimen(s) collected/removed None BILLY MARAVILLA MD Aug 08, 2022 16:17
[2022-08-08] MEDS ORDERED: MEPERIDINE (DEMEROL) INJ 50 MG/ML IVP ONE (16:30)
[2022-08-08] MEDS ORDERED: fentaNYL INJ 100 MCG/2 ML AMP IVP ONE (16:30)
[2022-08-08] MEDS ORDERED: ONDANSETRON 4 MG/2 ML (SDV) Z0FRAN IVP PRN (16:30)
[2022-08-08] MEDS ORDERED: ACETAMINOPHEN 500 MG TAB (TYLENOL) PO PRN (16:30)
[2022-08-08] MEDS ORDERED: BISACODYL 5 MG (DULCOLAX) TABLET PO PRN (16:30)
[2022-08-08] MEDS ORDERED: morphine INJ 10 MG/ML 1ML (SYR OR VIAL) IVP ONE (16:30)
[2022-08-08] MEDS ORDERED: MILK OF MAGNESIA 400 MG/5 ML 30 ML UDC PO PRN (16:30)
[2022-08-08] MEDS ORDERED: ONDANSETRON 4 MG/2 ML (SDV) Z0FRAN IV PRN (16:30)
[2022-08-08] MEDS: 1/2 NS IV SOLUTION 1,000 ML IV SCH (17:58)
--- NOTE | 2022-08-08 18:00 | Consultation ---
HPI History of Present Illness: HPI/Chief Complaint CC: s/p uncomplicated right hip replacement by Dr Arce POD # 0 HPI: This is a 77yoWF clinic patient of Dr Boggs who has a h/o HTN, HLP and AF who presents to room 412 following an uncomplicated right hip replacement by Dr Arce. Currently she is complaining of pain and can't provide many details. No nausea is reported now since receiving meds. Home meds were started by Dr Arce. Labs will be monitoring closely along with oxygen levels and BP. Source: RN/MD, old records Exam Limitations: clinical condition (pain) Date Seen 08/08/22 Attending Physician Vaughn Boggs DO PCP Admitting Physician: Goldy Arce MD Attending Physician: Goldy Arce MD Referring Physician Date of Admission Home Medications & Allergies Home Medications Reviewed patient Home Medication Reconciliation performed by pharmacy medication reconciliations inorganic chemical technician and/or nursing. Patients Allergies have been reviewed. Allergies Allergies Coded Allergies cyclobenzaprine (Verified Allergy, Unknown, 06/05/22) Past Hxenbqx-Tlwzzv-Elspin Hx Past Med/Social Hx: Reviewed Nursing Past Med/Soc Hx, Reviewed and Corrections made Patient Social History Marrital Status: single Employed/Student: retired Alcohol Use: Denies Use Smoking Status: Never a Smoker Former Smoker, Quit: Jun 07, 2022 Type Used: Cigarettes Recent Foreign Travel: No Contact w/other who traveled: No Recent Hopitalizations: No Immunizations Up To Date Tetanus Booster (TDap): Unknown Date of Influenza Vaccine: May 10, 2022 Seasonal Allergies Seasonal Allergies: No Past Medical History Surgeries: Orthopedic Currently Using CPAP: No Currently Using BIPAP: No Cardiac: Atrial Fibrillation, High Cholesterol, Hypertension, Irregular Heartbeat Musculoskeletal: Arthritis HEENT: Cataract Psychosocial: Anxiety, Depression Family History No Pertinent Family Hx Review of Systems Constitutional: see HPI Musculoskeletal: joint pain Physical Exam Physical Exam Vital Signs Vital Signs - First Documented 08/08/22 10:00 Temp 36.4 Pulse 68 Resp 20 B/P (MAP) 171/70 (103) Pulse Ox 99 O2 Delivery Room Air Capillary Refill : Less Than 3 Seconds Height, Weight, BMI Height: '" Weight: lbs. oz. kg; 31.58 BMI Method: General Appearance: Anxious, Chronically ill, Mild Distress Respiratory: Chest Non Tender, Lungs Clear, Normal Breath Sounds, No Accessory Muscle Use, No Respiratory Distress Cardiovascular: No Edema, No Gallop, No JVD, No Murmur, Normal Peripheral Pulses, Irregularly Irregular Neurologic/Psychiatric: Alert, Depressed Affect, Disoriented Results Results/Procedures Labs Patient resulted labs reviewed. Assessment/Plan Assessment and Plan Assess & Plan/Chief Complaint Assessment: s/p right hip replacement by Dr Arce uncomplicated POD # 0 AF HTN HLP Anxiety GERD Neuropathy Plan: Pain control Monitor nausea Home meds Diagnosis/Problems Diagnosis/Problems (1) Atrial fibrillation Status: Acute (2) Primary osteoarthritis of right hip ROSEANN LARA DO Aug 08, 2022 18:00
[2022-08-08] MEDS: morphine INJ 4 MG/ML 1 ML (VIAL/SYRINGE) IVP PRN ×2 (18:01→20:20)
--- NOTE | 2022-08-08 19:07 | Diagnostic Imaging Report ---
EXAMINATION: Pelvis, 2 views. COMPARISON: June 05, 2022. HISTORY: 77-year-old male, status post right total hip arthroplasty. FINDINGS: There is a right total hip prosthesis. The hardware is intact. There is no periprosthetic lucency. There are skin [place] laterally. Soft tissue gas likely reflects recent postoperative state of the patient. The pubic symphysis and sacroiliac joints are normally aligned. The left hip is not dislocated. There are degenerative changes of the lower lumbar spine. There are vascular calcifications. There is no identified acute fracture. IMPRESSION: 1. Intact right total hip prosthesis without identified complication. Dictated by: Dictated on workstation # [id number]
[2022-08-08] MEDS: GABAPENTIN 300 MG (NEURONTIN) CAP PO SCH (20:22)
[2022-08-08] MEDS: DOCUSATE SODIUM 100 MG (COLACE) CAP PO SCH (20:22)
[2022-08-08] MEDS: ceFAZolin INJECTION 1,000 MG in NS (IVPB) 50 ML IV SCH (20:22)
[2022-08-08] MEDS: ALPRAZolam 0.5 MG (XANAX) TAB PO PRN (20:22)
[2022-08-09 03:20] VITALS: BP 156/70
[2022-08-09] MEDS: morphine INJ 4 MG/ML 1 ML (VIAL/SYRINGE) IVP PRN (03:23)
--- NOTE | 2022-08-09 05:11 | Progress Note ---
Subjective Date Seen by a Provider: Aug 09, 2022 Time Seen by a Provider: 09:00 Subjective/Events-last exam Pt is doing about the same but delirium is an issue from Morphine Labs look good Talked to Dr. Arce Checked meds Will maintain on home medication Review of Systems General: Fatigue Musculoskeletal: leg pain Neurological: Confusion Objective Exam Last Set of Vital Signs Vital Signs Date Time Temp Pulse Resp B/P (MAP) Pulse Ox O2 Delivery O2 Flow Rate FiO2 08/09/22 03:20 37.2 80 18 156/70 (98) 94 Nasal Cannula 1.00 1.00 Capillary Refill : Less Than 3 Seconds I&O Intake and Output 08/09/22 00:00 Intake Total 2350 ml Output Total 250 ml Balance 2100 ml Intake Oral 300 ml IV Total 2050 ml Output Urine Total 250 ml General: Alert, Cooperative, No Acute Distress, Other (confused, opens eyes) Lungs: Clear to Auscultation, Normal Air Movement Heart: Regular Rate, Normal S1, Normal S2, No Murmurs Assessment/Plan Assessment/Plan Assess & Plan/Chief Complaint Assessment: s/p right hip replacement by Dr Arce uncomplicated POD # 1 Post op delirium presumed from morphine AF HTN HLP Anxiety GERD Neuropathy Plan: Pain control minimize Monitor nausea Home meds Diagnosis/Problems Diagnosis/Problems (1) Atrial fibrillation Status: Acute (2) Primary osteoarthritis of right hip ROSEANN LARA DO Aug 09, 2022 05:11
[2022-08-09] MEDS: ceFAZolin INJECTION 1,000 MG in NS (IVPB) 50 ML IV SCH (05:37)
[2022-08-09] MEDS: KCL 20 MEQ TAB (K-DUR) PO SCH (05:38)
[2022-08-09] MEDS: 1/2 NS IV SOLUTION 1,000 ML IV SCH ×3 (05:38→22:35)
[2022-08-09] MEDS: MULTIVIT W/MINERALS TAB (THERAGRAN M) PO SCH (05:38)
[2022-08-09 06:08] LABS: BASOPHILS % (AUTO) 0 % (0-10); EOSINOPHILS % (AUTO) 0 % (0-10); HEMATOCRIT 34 % (35-52); HEMOGLOBIN 10.1 g/dL (11.5-16.0); LYMPHOCYTES # (AUTO) 0.9 10^3/uL (1.0-4.0); LYMPHOCYTES % (AUTO) 9 % (12-44); MEAN CORPUSCULAR HEMOGLOBIN 25 pg (25-34); MEAN CORPUSCULAR HGB CONC 30 g/dL (32-36); MEAN CORPUSCULAR VOLUME 82 fL (80-99); MEAN PLATELET VOLUME 9.2 fL (9.0-12.2); MONOCYTES % (AUTO) 9 % (0-12); NEUTROPHILS # (AUTO) 8.9 10^3/uL (1.8-7.8); NEUTROPHILS % (AUTO) 82 % (42-75); PLATELET COUNT 357 10^3/uL (130-400); WHITE BLOOD COUNT 10.9 10^3/uL (4.3-11.0)
[2022-08-09 06:27] LABS: ALBUMIN 3.3 GM/DL (3.2-4.5); BILIRUBIN,TOTAL 0.6 MG/DL (0.1-1.0); CALCIUM 8.9 MG/DL (8.5-10.1); CREATININE SERUM 0.82 MG/DL (0.60-1.30); POTASSIUM 4.5 MMOL/L (3.6-5.0); TOTAL PROTEIN 6.5 GM/DL (6.4-8.2)
[2022-08-09 07:58] VITALS: BP 139/92
[2022-08-09] MEDS: CELECOXIB 100 MG (CeleBREX) CAP PO SCH ×2 (08:24→17:19)
[2022-08-09] MEDS: DOCUSATE SODIUM 100 MG (COLACE) CAP PO SCH ×2 (08:24→19:58)
[2022-08-09] MEDS: PANTOPRAZOLE 40 MG (PROTONIX) TAB PO SCH (08:25)
[2022-08-09] MEDS: GABAPENTIN 300 MG (NEURONTIN) CAP PO SCH ×3 (08:25→20:00)
[2022-08-09] MEDS: amLODIPine 5 MG (NORVASC) TAB PO SCH (08:25)
[2022-08-09] MEDS: RIVAROXABAN 15 MG TABLET (XARELTO) PO SCH (09:10)
--- NOTE | 2022-08-09 09:26 | Progress Note - Ortho ---
Progress Note Subjective Date of Exam 08/09/22 Chief Complaint POD #1 R LILIAN HPI/Events since last exam confused, able to answer simple questions with one word answers, follows simple commands Review of Systems - Allergies: Coded Allergies: cyclobenzaprine (Verified Allergy, Unknown, 06/05/22) Home Meds Active Scripts Potassium Chloride (Klor-Con M20) 20 Meq Tab.er.prt, 10 MEQ PO DAILY@0700, #30 EA Prov:ROSEANN LARA DO 07/26/22 Alprazolam (Alprazolam) 0.5 Mg Tablet, 0.5 MG PO Q6H PRN for ANXIETY, #20 TAB Prov:JANEROSEANN DO 07/26/22 Acetaminophen (Acetaminophen) 325 Mg Tablet, 650 MG PO Q8H PRN for PAIN-MILD (1- 4), #30 TAB Prov:ROSEANN LARA DO 07/26/22 Tramadol HCl (Tramadol HCl) 50 Mg Tablet, 50 MG PO Q8H PRN for PAIN-MODERATE (5- 7), #30 TAB Prov:ROSEANN LARA DO 07/26/22 Rivaroxaban (XARELTO TABLET) 15 Mg Tablet, 15 MG PO DAILY@0800, #30 TAB Prov:LARARIMABulmaro DELCID 07/26/22 Amlodipine Besylate (Amlodipine Besylate) 5 Mg Tablet, 5 MG PO DAILY, #30 TAB Prov:JANEROSEANN DO 07/26/22 Diltiazem HCl (Diltiazem ER) 360 Mg Capsule.er, 360 MG PO DAILY, #30 CAP Prov:JANEROSEANN DO 07/26/22 Gabapentin (Neurontin) 300 Mg Capsule, 300 MG PO 1200,2000, #60 CAP Prov:JANEROSEANN DO 07/26/22 Gabapentin (Neurontin) 300 Mg Capsule, 600 MG PO DAILY, #60 CAP TAKES 2 (300MG) CAPS Prov:ROSEANN LARA DO 07/26/22 Bupropion HCl (Bupropion Xl) 150 Mg Tab.er.24h, 150 MG PO DAILY, #30 TAB Prov:ROSEANN LARA DO 07/26/22 Pantoprazole Sodium (Pantoprazole Sodium) 40 Mg Tablet.dr, 40 MG PO DAILY, #30 TAB Prov:ROSEANN LARA DO 12/27/22 Objective Exam R Hip: Dressing C/D/I, +DF of ankle, no s/s of DVT Vital Signs Vital Signs Date Time Temp Pulse Resp B/P (MAP) Pulse Ox O2 Delivery O2 Flow Rate FiO2 08/09/22 07:58 37.2 102 18 139/92 (108) 93 Nasal Cannula 1.00 08/09/22 03:20 37.2 80 18 156/70 (98) 94 Nasal Cannula 1.00 1.00 08/08/22 23:02 36.6 69 18 138/60 (86) 94 Nasal Cannula 1.00 08/08/22 21:00 Room Air 08/08/22 19:19 36.0 83 22 172/72 (105) 97 Nasal Cannula 2.00 08/08/22 17:23 36.0 64 20 174/75 (108) 93 Room Air 08/08/22 17:15 Room Air 08/08/22 17:10 36.0 16 151/61 (91) 94 Room Air 08/08/22 17:00 OxyMask 4.00 08/08/22 17:00 23 140/85 (103) 98 OxyMask 4.00 08/08/22 16:50 28 152/66 (94) 99 OxyMask 4.00 08/08/22 16:45 OxyMask 8 08/08/22 16:40 24 154/63 (93) 100 OxyMask 8 08/08/22 16:30 OxyMask 8 08/08/22 16:30 13 171/68 (102) 100 OxyMask 8 08/08/22 16:18 OxyMask 8 08/08/22 16:18 36.1 16 154/65 (94) 100 OxyMask 8 08/08/22 11:17 95 Room Air 08/08/22 10:00 36.4 68 20 171/70 (103) 99 Room Air I & O 08/09/22 07:00 Intake Total 2450 ml Output Total 625 ml Balance 1825 ml Lab Results Laboratory Tests 08/09/22 05:26: White Blood Count 10.9, Red Blood Count 4.12, Hemoglobin 10.1L, Hematocrit 34L, Mean Corpuscular Volume 82, Mean Corpuscular Hemoglobin 25, Mean Corpuscular Hemoglobin Concent 30L, Red Cell Distribution Width 17.7H, Platelet Count 357, Mean Platelet Volume 9.2, Immature Granulocyte % (Auto) 1, Neutrophils (%) (Auto) 82H, Lymphocytes (%) (Auto) 9L, Monocytes (%) (Auto) 9, Eosinophils (%) (Auto) 0, Basophils (%) (Auto) 0, Neutrophils # (Auto) 8.9H, Lymphocytes # (Auto) 0.9L, Monocytes # (Auto) 1.0, Eosinophils # (Auto) 0.0, Basophils # (Auto) 0.0, Immature Granulocyte # (Auto) 0.1, Sodium Level 136, Potassium Level 4.5, Chloride Level 103, Carbon Dioxide Level 24, Anion Gap 9, Blood Urea Nitrogen 14, Creatinine 0.82, Estimat Glomerular Filtration Rate 75, BUN/Creatinine Ratio 17, Glucose Level 129H, Calcium Level 8.9, Corrected Calcium 9.5, Total Bilirubin 0.6, Aspartate Amino Transf (AST/SGOT) 15, Alanine Aminotransferase (ALT/SGPT) 8, Alkaline Phosphatase 89, Total Protein 6.5, Albumin 3.3 Microbiology 08/08/22 MRSA Screen - Final, Complete MRSA not isolated Imaging Postop AP pelvis dated 08/08/22 was reviewed from PACS and demonstrated total hip arthroplasty with components in good position, no complications Assessment and Plan Assessment Right Hip Primary Osteoarthritis s/p R LILIAN Problem List Right Hip Primary Osteoarthritis s/p R LILIAN Plan PT/OT when able DVT prophylaxis Plan for swing bed Final Diagonsis Right Hip Primary Osteoarthritis s/p R LILIAN Level of the visit: Level 3 (global) BILLY MARAVILLA MD Aug 09, 2022 09:26
--- NOTE | 2022-08-09 09:32 | Occ Therapy Progress Note ---
Therapy Progress Note OT order received, chart reviewed. OT spoke with nursing before entering. Per nursing, pt. very confused. Not alert. She isn't opening her eyes and can't lift her arms. Unable to participate. Nursing would like OT to hold at this time. Will check back in a.m. 1, visit 09 BEBO ALEJANDRE OT Aug 09, 2022 09:32
--- NOTE | 2022-08-09 10:15 | Physical Therapy Evaluation ---
PT Evaluation-General Medical Diagnosis Admission Date Aug 09, 2022 at 08:23 Medical Diagnosis: right hip osteoarthritis Onset Date: Aug 09, 2022 Therapy Diagnosis Therapy Diagnosis: generalized weakness/debility Precautions Precautions/Isolations: Fall Prevention, Standard Precautions Weight Bear Status Right Lower Extremity: Right Weight Bearing/Tolerated Left Lower Extremity: Left Full Weight Bearing Referral Physician: Claude Reason for Referral: Evaluation/Treatment Medical History Pertinent Medical History: Atrial Fib, GERD, Neuropathy, OA Current History s/p elective right THR Reviewed History: Yes Social History Home: Senior Living Prior Prior Level of Function SCALE: Activities may be completed with or without assistive devices. 3-Nxdoqbuzwz-dwqcstg completes the activity by him/herself with no assistance from a helper. 5-Set-up or Clean-up Assistance-helper sets up or cleans up; patient completes activity. [place] assists only prior to or following the activity. 4-Supervision or Touching Assistance-helper provides verbal cues and/or touching/steadying and/or contact guard assistance as patient completes activity. Assistance may be provided throughout the activity or intermittently. 3-Partial/Moderate Assistance-helper does LESS THAN HALF the effort. [place] lifts, holds or supports trunk or limbs, but provides less than half the effort. 2-Substantial/Maximal Assistance-helper does MORE THAN HALF the effort. [place] lifts or holds trunk or limbs and provides more than half the effort. 8-Nhjlfhvup-nyhtkw does ALL the effort. Patient does none of the effort to complete the activity. Or, the assistance of 2 or more helpers is required for the patient to complete the activity. If activity was not attempted, code reason: 7-Patient Refused. 9-Not Applicable-not attempted and the patient did not perform the activity before the current illness, exacerbation or injury. 10-Not Attempted due to Environmental Limitations-(lack of equipment, weather restraints, etc.). 88-Not Attempted due to Medical Conditions or Safety Concerns. Bed Mobility: 3 Transfers (B,C,W/C): 3 Gait: 9 Stairs: 9 Wheelchair Mobility: 3 Indoor Mobility (Ambulation): Not [place] Stairs: Not [place] Prior Devices Use: Manual wheelchair per prior PT evaluation, patient is non ambulatory PLOF at [facility] PT Evaluation-Current Subjective Patient mumbling and unable to answer questions. Objective Patient Orientation: Mumbles, Listless Attachments: Oxygen, Mccarthy Catheter, IV ROM/Strength ROM Lower Extremities right hip precautions/left LE WFL Strength Lower Extremities unable to test due to patient's current status Integumentary/Posture Bladder Incontinence: Mccarthy Cath Sensory Vision: Unable to Assess Hearing: Unable to Assess Transfers Roll Left to Right (QC): 1 (x 2) Sit to Lying (QC): 88 Lying to Sitting/Side of Bed(Q: 88 Sit to Stand (QC): 88 Gait Walk 10 feet (QC): 9 Walk 50 ft with 2 Turns(QC): 9 Walk 150 ft (QC): 9 Assessment/Needs Per prior report, patient is non ambulatory PLOF at [facility] with w/c use for mobility. Patient unable to appropriately respond to questions and direction. RN is aware. PT to increase activity and continue to assess patient LOF and skilled needs. Rehab Potential: Guarded PT Laundry Attendant Goals Senior Living Goals PT Senior Living Goals Time Frame: Aug 27, 2022 Roll Left & Right (QC): 3 Sit to Lying (QC): 3 Lying-Sitting on Side/Bed(QC): 3 Sit to Stand (QC): 3 Chair/Ock-jc-Kmfjn Xfer(QC): 3 PT Plan Problem List Problem List: Activity Tolerance, Functional Strength, Safety, Balance, Gait, Transfer, Bed Mobility Treatment/Plan Treatment Plan: Continue Plan of Care Treatment Plan: Bed Mobility, Education, Functional Activity Trace, Functional Strength, Gait, Safety, Therapeutic Exercise, Transfers Treatment Duration: Aug 27, 2022 Frequency: 11 times per week Estimated Hrs Per Day: .5 hour per day Time Time In: 842 Time Out: 852 DATE: Aug 09, 2022 Total Billed Treatment Time: 10 Total Billed Treatment 1 visit EVMod 10 min MARCO ANTONIO PEREA PT Aug 09, 2022 10:15
[2022-08-09 11:21] VITALS: BP 149/67
--- NOTE | 2022-08-09 13:59 | Physical Therapy Daily Note ---
PT Daily Note-Current Subjective Patient is more alert, however, very confused. Pain Section J - Health Conditions 1. Rarely or not at all 2. Occasionally 3. Frequently 4. Almost constantly 8. Unable to answer Pain Effect on Sleep: 8 Pain Interference with Therapy: 8 Pain Interference w/Day-to-Day: 8 Mental Status Attachments: Oxygen, IV Transfers SCALE: Activities may be completed with or without assistive devices. 4-Liwrbefryy-jelbvkd completes the activity by him/herself with no assistance from a helper. 5-Set-up or Clean-up Assistance-helper sets up or cleans up; patient completes activity. [place] assists only prior to or following the activity. 4-Supervision or Touching Assistance-helper provides verbal cues and/or touching/steadying and/or contact guard assistance as patient completes activity. Assistance may be provided throughout the activity or intermittently. 3-Partial/Moderate Assistance-helper does LESS THAN HALF the effort. [place] lifts, holds or supports trunk or limbs, but provides less than half the effort. 2-Substantial/Maximal Assistance-helper does MORE THAN HALF the effort. [place] lifts or holds trunk or limbs and provides more than half the effort. 4-Zhzclayvw-sulrjc does ALL the effort. Patient does none of the effort to complete the activity. Or, the assistance of 2 or more helpers is required for the patient to complete the activity. If activity was not attempted, code reason: 7-Patient Refused. 9-Not Applicable-not attempted and the patient did not perform the activity before the current illness, exacerbation or injury. 10-Not Attempted due to Environmental Limitations-(lack of equipment, weather restraints, etc.). 88-Not Attempted due to Medical Conditions or Safety Concerns. Roll Left & Right (QC): 1 (x 2) Sit to Lying (QC): 1 (x 2) Lying to Sitting/Side of Bed(Q: 1 (x 2) Weight Bearing Right Lower Extremity: Right Weight Bearing/Tolerated Left Lower Extremity: Left Full Weight Bearing Exercises Supine Ex: Ankle pumps, Heel Slides, Straight leg raise (mild) Supine Reps: 15 Assessment Patient is dependent with all mobility and exercises. Patient very confused and mumbles. PT to increase activity as tolerated by patient. Abduction pillow and SCD's in place after session with bed alarm activated. PT Skilled Nursing Goals Skilled Nursing Goals PT Skilled Nursing Goals Time Frame: Aug 27, 2022 Roll Left & Right (QC): 3 Sit to Lying (QC): 3 Lying-Sitting on Side/Bed(QC): 3 Sit to Stand (QC): 3 Chair/[place]-wd-Ptxxj Xfer(QC): 3 PT Plan Treatment/Plan Treatment Plan: Continue Plan of Care Treatment Plan: Bed Mobility, Education, Functional Activity Trace, Functional Strength, Gait, Safety, Therapeutic Exercise, Transfers Treatment Duration: Aug 27, 2022 Frequency: 11 times per week Estimated Hrs Per Day: .5 hour per day Time Time In: 1250 Time Out: 1305 DATE: Aug 09, 2022 Total Billed Treatment Time: 15 Total Billed Treatment 1 visit EX 15 min MARCO ANTONIO PEREA PT Aug 09, 2022 13:59
--- NOTE | 2022-08-09 14:12 | Anesthesia-General Post-Op ---
General Patient Condition Mental Status/LOC: Same as Preop Cardiovascular: Satisfactory Nausea/Vomiting: Absent Respiratory: Satisfactory Pain: Controlled Complications: Absent Post Op Complications Complications None Follow Up Care/Instructions Patient Instructions None needed. Anesthesia/Patient Condition Patient Condition Patient is doing well, no complaints, stable vital signs, no apparent adverse anesthesia problems. No complications reported per nursing. BILLY POTTS CRNA Aug 09, 2022 14:12
[2022-08-09 15:21] VITALS: BP 158/58
[2022-08-09 19:37] VITALS: BP 141/65
[2022-08-09] MEDS: ALPRAZolam 0.5 MG (XANAX) TAB PO PRN (19:57)
[2022-08-09 23:51] VITALS: BP 158/65
[2022-08-10 03:31] VITALS: BP 145/65
[2022-08-10] MEDS: KCL 20 MEQ TAB (K-DUR) PO SCH (05:52)
[2022-08-10] MEDS: MULTIVIT W/MINERALS TAB (THERAGRAN M) PO SCH (05:52)
[2022-08-10] MEDS: morphine INJ 4 MG/ML 1 ML (VIAL/SYRINGE) IVP PRN (05:52)
--- NOTE | 2022-08-10 06:57 | Progress Note ---
Subjective Date Seen by a Provider: Aug 10, 2022 Time Seen by a Provider: 10:00 Subjective/Events-last exam Pt is doing a lot better Delirium is still present but much improved Very slow recovery She was from a [facility] so this will be a slow recovery on skilled Review of Systems General: Fatigue, Malaise Musculoskeletal: leg pain Neurological: Confusion Objective Exam Last Set of Vital Signs Vital Signs Date Time Temp Pulse Resp B/P (MAP) Pulse Ox O2 Delivery O2 Flow Rate FiO2 08/10/22 03:31 36.7 102 20 145/65 (91) 94 Nasal Cannula 1.00 Capillary Refill : Less Than 3 Seconds I&O Intake and Output 08/10/22 00:00 Intake Total 1550 ml Output Total 975 ml Balance 575 ml Intake Oral 550 ml IV Total 1000 ml Output Urine Total 925 ml Post Void Residual 50 ml # Voids 1 Results Lab Microbiology 08/08/22 MRSA Screen - Final, Complete MRSA not isolated Assessment/Plan Assessment/Plan Assess & Plan/Chief Complaint Assessment: s/p right hip replacement by Dr Arce uncomplicated POD # 2 Post op delirium AF HTN HLP Anxiety GERD Neuropathy Chronic debility who [place] Plan: Pain control minimize Monitor nausea Home meds Diagnosis/Problems Diagnosis/Problems (1) Atrial fibrillation Status: Acute (2) Primary osteoarthritis of right hip ROSEANN LARA DO Aug 10, 2022 06:56
[2022-08-10 07:25] VITALS: BP 144/65
[2022-08-10 07:26] LABS: BASOPHILS % (AUTO) 0 % (0-10); EOSINOPHILS % (AUTO) 0 % (0-10); HEMATOCRIT 30 % (35-52); HEMOGLOBIN 9.1 g/dL (11.5-16.0); LYMPHOCYTES # (AUTO) 1.4 10^3/uL (1.0-4.0); LYMPHOCYTES % (AUTO) 12 % (12-44); MEAN CORPUSCULAR HEMOGLOBIN 25 pg (25-34); MEAN CORPUSCULAR HGB CONC 31 g/dL (32-36); MEAN CORPUSCULAR VOLUME 81 fL (80-99); MEAN PLATELET VOLUME 8.8 fL (9.0-12.2); MONOCYTES # (AUTO) 1.6 10^3/uL (0.0-1.0); MONOCYTES % (AUTO) 14 % (0-12); NEUTROPHILS # (AUTO) 8.4 10^3/uL (1.8-7.8); NEUTROPHILS % (AUTO) 73 % (42-75); PLATELET COUNT 262 10^3/uL (130-400); WHITE BLOOD COUNT 11.4 10^3/uL (4.3-11.0)
[2022-08-10 07:50] LABS: ALBUMIN 2.8 GM/DL (3.2-4.5); BILIRUBIN,TOTAL 0.7 MG/DL (0.1-1.0); CALCIUM 8.5 MG/DL (8.5-10.1); CREATININE SERUM 0.69 MG/DL (0.60-1.30); POTASSIUM 3.6 MMOL/L (3.6-5.0); TOTAL PROTEIN 5.7 GM/DL (6.4-8.2)
[2022-08-10] MEDS: GABAPENTIN 300 MG (NEURONTIN) CAP PO SCH ×3 (08:24→21:10)
[2022-08-10] MEDS: DOCUSATE SODIUM 100 MG (COLACE) CAP PO SCH ×2 (08:24→21:10)
[2022-08-10] MEDS: CELECOXIB 100 MG (CeleBREX) CAP PO SCH ×2 (08:25→18:22)
[2022-08-10] MEDS: RIVAROXABAN 15 MG TABLET (XARELTO) PO SCH (08:25)
[2022-08-10] MEDS: amLODIPine 5 MG (NORVASC) TAB PO SCH (08:25)
[2022-08-10] MEDS: PANTOPRAZOLE 40 MG (PROTONIX) TAB PO SCH (08:25)
--- NOTE | 2022-08-10 09:16 | Progress Note - Ortho ---
Progress Note Subjective Date of Exam 08/10/22 Chief Complaint POD #2 R LILIAN HPI/Events since last exam remains confused but improved from yesterday, more conversive Review of Systems - Allergies: Coded Allergies: cyclobenzaprine (Verified Allergy, Unknown, 06/05/22) Home Meds Active Scripts Potassium Chloride (Klor-Con M20) 20 Meq Tab.er.prt, 10 MEQ PO DAILY@0700, #30 EA Prov:ROSEANN LARA DO 07/26/22 Alprazolam (Alprazolam) 0.5 Mg Tablet, 0.5 MG PO Q6H PRN for ANXIETY, #20 TAB Prov:ROSEANN LARA DO 07/26/22 Acetaminophen (Acetaminophen) 325 Mg Tablet, 650 MG PO Q8H PRN for PAIN-MILD (1- 4), #30 TAB Prov:ROSEANN LARA DO 07/26/22 Tramadol HCl (Tramadol HCl) 50 Mg Tablet, 50 MG PO Q8H PRN for PAIN-MODERATE (5- 7), #30 TAB Prov:ROSEANN LARA DO 07/26/22 Rivaroxaban (XARELTO TABLET) 15 Mg Tablet, 15 MG PO DAILY@0800, #30 TAB Prov:ROSEANN LARA DO 07/26/22 Amlodipine Besylate (Amlodipine Besylate) 5 Mg Tablet, 5 MG PO DAILY, #30 TAB Prov:ROSEANN LARA DO 07/26/22 Diltiazem HCl (Diltiazem ER) 360 Mg Capsule.er, 360 MG PO DAILY, #30 CAP Prov:ROSEANN LARA DO 07/26/22 Gabapentin (Neurontin) 300 Mg Capsule, 300 MG PO 1200,2000, #60 CAP Prov:ROSEANN LARA DO 07/26/22 Gabapentin (Neurontin) 300 Mg Capsule, 600 MG PO DAILY, #60 CAP TAKES 2 (300MG) CAPS Prov:ROSEANN LARA DO 07/26/22 Bupropion HCl (Bupropion Xl) 150 Mg Tab.er.24h, 150 MG PO DAILY, #30 TAB Prov:ROSEANN LARA DO 07/26/22 Pantoprazole Sodium (Pantoprazole Sodium) 40 Mg Tablet.dr, 40 MG PO DAILY, #30 TAB Prov:ROSEANN LARA DO 07/26/22 Objective Exam Right Hip: Incision C/D/I, +DF of ankle, no s/s of DVT Vital Signs Vital Signs Date Time Temp Pulse Resp B/P (MAP) Pulse Ox O2 Delivery O2 Flow Rate FiO2 08/10/22 07:25 36.9 93 18 144/65 (91) 93 Room Air 08/10/22 03:31 36.7 102 20 145/65 (91) 94 Nasal Cannula 1.00 08/09/22 23:51 36.9 105 20 158/65 (96) 97 Nasal Cannula 1.00 08/09/22 20:41 Room Air 08/09/22 19:37 37.8 98 22 141/65 (90) 91 Room Air 08/09/22 15:21 37.8 104 158/58 (91) Nasal Cannula 1.00 08/09/22 11:21 36.9 96 20 149/67 (94) 97 Nasal Cannula 1.00 I & O0 08/10/22 07:00 Intake Total 1750 ml Output Total 1500 ml Balance 250 ml Lab Results Laboratory Tests 08/10/22 07:18: White Blood Count 11.4H, Red Blood Count 3.65L, Hemoglobin 9.1L, Hematocrit 30L, Mean Corpuscular Volume 81, Mean Corpuscular Hemoglobin 25, Mean Corpuscular Hemoglobin Concent 31L, Red Cell Distribution Width 17.9H, Platelet Count 262, Mean Platelet Volume 8.8L, Immature Granulocyte % (Auto) 1, Neutrophils (%) (Auto) 73, Lymphocytes (%) (Auto) 12, Monocytes (%) (Auto) 14H, Eosinophils (%) (Auto) 0, Basophils (%) (Auto) 0, Neutrophils # (Auto) 8.4H, Lymphocytes # (Auto) 1.4, Monocytes # (Auto) 1.6H, Eosinophils # (Auto) 0.0, Basophils # ( Auto) 0.0, Immature Granulocyte # (Auto) 0.1, Sodium Level 134L, Potassium Level 3.6, Chloride Level 100, Carbon Dioxide Level 26, Anion Gap 8, Blood Urea Nitrogen 10, Creatinine 0.69, Estimat Glomerular Filtration Rate 90, BUN/Creatin ine Ratio 14, Glucose Level 90, Calcium Level 8.5, Corrected Calcium 9.5, Total Bilirubin 0.7, Aspartate Amino Transf (AST/SGOT) 18, Alanine Aminotransferase (ALT/SGPT) 6, Alkaline Phosphatase 73, Total Protein 5.7L, Albumin 2.8L Microbiology 08/08/22 MRSA Screen - Final, Complete MRSA not isolated Assessment and Plan Assessment Right Hip Primary Osteoarthritis s/p R LILIAN Problem List Right Hip Primary Osteoarthritis s/p R LILIAN Plan PT/OT DVT Prophylaxis Will most likely need swing bed Final Diagonsis Right Hip Primary Osteoarthritis s/p R LILIAN Level of the visit: Level 3 (global) BILLY MARAVILLA MD Aug 10, 2022 09:16
--- NOTE | 2022-08-10 10:32 | Physical Therapy Daily Note ---
PT Daily Note-Current Subjective Patient in bed pre tx, agrees to PT, voices no complaints of pain but shows signs of pain during tx. Pain Section J - Health Conditions 1. Rarely or not at all 2. Occasionally 3. Frequently 4. Almost constantly 8. Unable to answer Pain Effect on Sleep: 8 Pain Interference with Therapy: 8 Pain Interference w/Day-to-Day: 8 Appearance Patient in bed post tx with nurse call, phone, tray, bed alarm on, abduction pillow in place, SCD's on. Mental Status Patient Orientation: Person, Confused Attachments: Oxygen, IV Transfers SCALE: Activities may be completed with or without assistive devices. 5-Pbhhthgnne-psvbzqt completes the activity by him/herself with no assistance from a helper. 5-Set-up or Clean-up Assistance-helper sets up or cleans up; patient completes activity. [place] assists only prior to or following the activity. 4-Supervision or Touching Assistance-helper provides verbal cues and/or touching/steadying and/or contact guard assistance as patient completes activity. Assistance may be provided throughout the activity or intermittently. 3-Partial/Moderate Assistance-helper does LESS THAN HALF the effort. [place] lifts, holds or supports trunk or limbs, but provides less than half the effort. 2-Substantial/Maximal Assistance-helper does MORE THAN HALF the effort. [place] lifts or holds trunk or limbs and provides more than half the effort. 1-Ncphidbkv-ghujlp does ALL the effort. Patient does none of the effort to complete the activity. Or, the assistance of 2 or more helpers is required for the patient to complete the activity. If activity was not attempted, code reason: 7-Patient Refused. 9-Not Applicable-not attempted and the patient did not perform the activity before the current illness, exacerbation or injury. 10-Not Attempted due to Environmental Limitations-(lack of equipment, weather restraints, etc.). 88-Not Attempted due to Medical Conditions or Safety Concerns. Roll Left & Right (QC): 2 Sit to Lying (QC): 1 Lying to Sitting/Side of Bed(Q: 2 Sit to Stand (QC): 1 Max assist to sit to the side of the bed, she is able to scoot forward on her own, attempted to stand using a rolling walker and she couldn't, therapist assist in front of patient and she was partially able to stand but was dependent, assist of 2 to lay down and scoot up after sitting back down. Weight Bearing Right Lower Extremity: Right Weight Bearing/Tolerated Left Lower Extremity: Left Full Weight Bearing Treatments rolling, changing pads, standing, sitting Assessment Current Status: Poor Progress not much change in mobility PT Assembly Room Supervisor Goals Penitentiary Goals PT Penitentiary Goals Time Frame: Aug 27, 2022 Roll Left & Right (QC): 3 Sit to Lying (QC): 3 Lying-Sitting on Side/Bed(QC): 3 Sit to Stand (QC): 3 Chair/Umm-td-Dhizu Xfer(QC): 3 PT Plan Problem List Problem List: Activity Tolerance, Functional Strength, Safety, Balance, Gait, Transfer, Bed Mobility, ROM Treatment/Plan Treatment Plan: Continue Plan of Care Treatment Plan: Bed Mobility, Education, Functional Activity Trace, Functional Strength, Gait, Safety, Therapeutic Exercise, Transfers Treatment Duration: Aug 27, 2022 Frequency: 11 times per week Estimated Hrs Per Day: .5 hour per day Safety Risks/Education Patient Education: Correct Positioning, Safety Issues Teaching Recipient: Patient Teaching Methods: Demonstration, Discussion Response to Teaching: Reinforcement Needed Time Time In: 0952 Time Out: 1011 DATE: Aug 10, 2022 Total Billed Treatment Time: 19 Total Billed Treatment 1 visit FA Pattie' JONATHAN LACEY PT Aug 10, 2022 10:32
[2022-08-10 11:49] VITALS: BP 111/65
[2022-08-10] MEDS: 1/2 NS IV SOLUTION 1,000 ML IV SCH (11:53)
--- NOTE | 2022-08-10 12:04 | Occupational Therapy Eval ---
OT Evaluation-General/PLF Medical Diagnosis Admission Date Aug 09, 2022 at 08:23 Medical Diagnosis: right hip osteoarthritis Onset Date: Aug 09, 2022 Therapy Diagnosis Therapy Diagnosis: n/a Precautions Precautions/Isolations: Fall Prevention Referral Physician: Claude Referral Reason: Evaluation/Treatment Medical History Pertinent Medical History: Atrial Fib, GERD, Neuropathy, OA Additional Medical History HTN, HLP, afib Current History s/p R hip replacement 08/08/22 Social History Home: [facility] ADL-Prior Level of Function SCALE: Activities may be completed with or without assistive devices. 4-Stknmicfvp-okmnfps completes the activity by him/herself with no assistance from a helper. 5-Set-up or Clean-up Assistance-helper sets up or cleans up; patient completes activity. [place] assists only prior to or following the activity. 4-Supervision or Touching Assistance-helper provides verbal cues and/or touchi ng/steadying and/or contact guard assistance as patient completes activity. Assistance may be provided throughout the activity or intermittently. 3-Partial/Moderate Assistance-helper does LESS THAN HALF the effort. [place] lifts, holds or supports trunk or limbs, but provides less than half the effort. 2-Substantial/Maximal Assistance-helper does MORE THAN HALF the effort. [place] lifts or holds trunk or limbs and provides more than half the effort. 0-Fpmsbslby-ydcyng does ALL the effort. Patient does none of the effort to complete the activity. Or, the assistance of 2 or more helpers is required for the patient to complete the activity. If activity was not attempted, code reason: 7-Patient Refused. 9-Not Applicable-not attempted and the patient did not perform the activity before the current illness, exacerbation or injury. 10-Not Attempted due to Environmental Limitations-(lack of equipment, weather restraints, etc.). 88-Not Attempted due to Medical Conditions or Safety Concerns. ADL PLOF Comments Pt poor historian. Per chart review, pt is from [facility]. Pt is nonambulatory, w/c level. Pt requires assistance with all ADLs at baseline. Self Care: Needed Some Help Functional Cognition: Needed Some Help OT Current Status Subjective Pt in bed, agreeable to OT evaluation Current Upper Extremity ROM RUE WFL during ADLs ADL-Treatment Eating (QC): 3 (Feeding assist per staffing coordinator) Shower/Bathe Self (QC): 1 Lower Body Dressing (QC): 1 On/Off Footwear (QC): 1 Toileting Hygiene (QC): 1 Other Treatments Pt in bed, assist x2 to scoot towards HOB. Pt unable to provide information about PLOF, per chart review, pt is from [place] and nonambulatory. Pt completed hair brushing with min VCs, and face washing with set up. At this time, pt would require at least 2 person assistance for all functional tasks in standing. Post tx, pt in bed, call light in reach and all needs met, bed alarm activated. Education OT Patient Education: Correct positioning, Modified ADL techniques, Progress toward Goal/Update tx plan, Purpose of tx/functional activities, Rehab process Teaching Recipient: Patient Teaching Methods: Discussion Response to Teaching: Verbalize Understanding OT Mc[facility] Goals [facility] Goals 1=Demonstrate adherence to instructed precautions during ADL tasks. 2=Patient will verbalize/demonstrate understanding of assistive devices/modifications for ADL. 3=Patient will improve strength/tolerance for activity to enable patient to perform ADL's. OT Education/Plan Problem List/Assessment Assessment: No Skilled OT Needs ID'd No skilled OT services indicated at this time. Pt is from [place] where she has assistance with ADLs, pt is nonambulatory at baseline. D/C from OT as pt is at her PLOF. Discharge Recommendations Plan/Recommendations: Discharge/Goals Met Therapy Discharge Recommendati: Other, See Comments ([place]) Treatment Plan/Plan of Care Patient would benefit from OT for education, treatment and training to promote independence in ADL's, mobility, safety and/or upper extremity function for ADL's. Plan of Care: ADL Retraining, Functional Mobility Treatment Duration: Aug 10, 2022 Frequency: 1 time per week (eval only) Rehab Potential: Poor Time Start Time: 11:18 Stop Time: 11:26 DATE: Aug 10, 2022 Total Time Billed (hr/min): 8 Billed Treatment Time 1, PETER BATES OT Aug 10, 2022 12:04
--- NOTE | 2022-08-10 14:11 | Physical Therapy Progress Note ---
Therapy Progress Note Attempted physical therapy but patient would not wake up. Called out name, shook shoulder and foot but would not rouse. Patient is breathing. Nurse notified. Will check back in the morning. JONATHAN LACEY PT Aug 10, 2022 14:11
[2022-08-10 15:43] VITALS: BP 137/74
[2022-08-10 19:04] VITALS: BP 111/51
[2022-08-10 23:44] VITALS: BP 140/63
[2022-08-11] MEDS: 1/2 NS IV SOLUTION 1,000 ML IV SCH (03:14)
[2022-08-11 03:42] VITALS: BP 142/63
[2022-08-11] MEDS: morphine INJ 4 MG/ML 1 ML (VIAL/SYRINGE) IVP PRN ×2 (04:35→21:55)
[2022-08-11] MEDS: ALPRAZolam 0.5 MG (XANAX) TAB PO PRN ×3 (04:54→21:55)
[2022-08-11 06:13] LABS: BASOPHILS % (AUTO) 0 % (0-10); EOSINOPHILS % (AUTO) 0 % (0-10); HEMATOCRIT 29 % (35-52); HEMOGLOBIN 8.8 g/dL (11.5-16.0); LYMPHOCYTES # (AUTO) 1.1 10^3/uL (1.0-4.0); LYMPHOCYTES % (AUTO) 11 % (12-44); MEAN CORPUSCULAR HEMOGLOBIN 25 pg (25-34); MEAN CORPUSCULAR HGB CONC 30 g/dL (32-36); MEAN CORPUSCULAR VOLUME 81 fL (80-99); MEAN PLATELET VOLUME 9.5 fL (9.0-12.2); MONOCYTES # (AUTO) 1.1 10^3/uL (0.0-1.0); MONOCYTES % (AUTO) 11 % (0-12); NEUTROPHILS # (AUTO) 7.8 10^3/uL (1.8-7.8); NEUTROPHILS % (AUTO) 77 % (42-75); PLATELET COUNT 246 10^3/uL (130-400); WHITE BLOOD COUNT 10.1 10^3/uL (4.3-11.0)
[2022-08-11] MEDS: MULTIVIT W/MINERALS TAB (THERAGRAN M) PO SCH (06:17)
[2022-08-11] MEDS: KCL 20 MEQ TAB (K-DUR) PO SCH (06:18)
[2022-08-11 06:19] LABS: ALBUMIN 2.8 GM/DL (3.2-4.5)
[2022-08-11 06:20] LABS: CHLORIDE 100 MMOL/L (98-107); POTASSIUM 3.8 MMOL/L (3.6-5.0); SODIUM 133 MMOL/L (135-145)
[2022-08-11 06:21] LABS: CALCIUM 8.7 MG/DL (8.5-10.1)
[2022-08-11 06:22] LABS: GLUCOSE 134 MG/DL (70-105); TOTAL PROTEIN 6.1 GM/DL (6.4-8.2)
[2022-08-11 06:23] LABS: CARBON DIOXIDE 21 MMOL/L (21-32)
[2022-08-11 06:24] LABS: BILIRUBIN,TOTAL 0.6 MG/DL (0.1-1.0)
[2022-08-11 06:25] LABS: ALKALINE PHOSPHATASE 89 U/L (40-136)
[2022-08-11 06:26] LABS: GFR ESTIMATED 90
[2022-08-11 06:27] LABS: BUN/CREATININE RATIO 19
[2022-08-11 06:29] LABS: ALANINE AMINOTRANSFERASE < 6 U/L (0-55)
[2022-08-11 08:32] VITALS: BP 128/67
[2022-08-11] MEDS: CELECOXIB 100 MG (CeleBREX) CAP PO SCH ×2 (08:34→17:54)
[2022-08-11] MEDS: GABAPENTIN 300 MG (NEURONTIN) CAP PO SCH ×3 (08:34→19:48)
[2022-08-11] MEDS: DOCUSATE SODIUM 100 MG (COLACE) CAP PO SCH ×2 (08:34→19:45)
[2022-08-11] MEDS: PANTOPRAZOLE 40 MG (PROTONIX) TAB PO SCH (08:34)
[2022-08-11] MEDS: amLODIPine 5 MG (NORVASC) TAB PO SCH (08:34)
[2022-08-11] MEDS: RIVAROXABAN 15 MG TABLET (XARELTO) PO SCH (08:35)
--- NOTE | 2022-08-11 10:44 | Physical Therapy Daily Note ---
PT Daily Note-Current Subjective Patient is more talkative on this date. Per RN, patient had medication at ~4 this morning to assist in relaxing patient. Pain Section J - Health Conditions 1. Rarely or not at all 2. Occasionally 3. Frequently 4. Almost constantly 8. Unable to answer Pain Effect on Sleep: 8 Pain Interference with Therapy: 8 Pain Interference w/Day-to-Day: 8 Mental Status Attachments: IV Transfers SCALE: Activities may be completed with or without assistive devices. 8-Edmyxqohnf-dhazmxf completes the activity by him/herself with no assistance from a helper. 5-Set-up or Clean-up Assistance-helper sets up or cleans up; patient completes activity. [place] assists only prior to or following the activity. 4-Supervision or Touching Assistance-helper provides verbal cues and/or touching/steadying and/or contact guard assistance as patient completes activity. Assistance may be provided throughout the activity or intermittently. 3-Partial/Moderate Assistance-helper does LESS THAN HALF the effort. [place] lifts, holds or supports trunk or limbs, but provides less than half the effort. 2-Substantial/Maximal Assistance-helper does MORE THAN HALF the effort. [place] lifts or holds trunk or limbs and provides more than half the effort. 7-Yqbsnqvjb-bwthtj does ALL the effort. Patient does none of the effort to com plete the activity. Or, the assistance of 2 or more helpers is required for the patient to complete the activity. If activity was not attempted, code reason: 7-Patient Refused. 9-Not Applicable-not attempted and the patient did not perform the activity before the current illness, exacerbation or injury. 10-Not Attempted due to Environmental Limitations-(lack of equipment, weather restraints, etc.). 88-Not Attempted due to Medical Conditions or Safety Concerns. Weight Bearing Right Lower Extremity: Right Weight Bearing/Tolerated Left Lower Extremity: Left Full Weight Bearing Exercises Supine Ex: Ankle pumps, Heel Slides, Straight leg raise (mild PROM), Hip abd/add Supine Reps: 15 (PROM bilaterlly due to patient was lethargic) Assessment Patient ceased treatment stating, "I want to sleep now." RN notified. PT to increase activity as tolerated by patient. PT [facility]cf Goals Chcf Goals PT Concrete Saw Operator Goals Time Frame: Aug 27, 2022 Roll Left & Right (QC): 3 Sit to Lying (QC): 3 Lying-Sitting on Side/Bed(QC): 3 Sit to Stand (QC): 3 Chair/Ucn-bf-Ztxsj Xfer(QC): 3 PT Plan Treatment/Plan Treatment Plan: Continue Plan of Care Treatment Plan: Bed Mobility, Education, Functional Activity Trace, Functional Strength, Gait, Safety, Therapeutic Exercise, Transfers Treatment Duration: Aug 27, 2022 Frequency: 11 times per week Estimated Hrs Per Day: .5 hour per day Time Time In: 915 Time Out: 925 DATE: Aug 11, 2022 Total Billed Treatment Time: 10 Total Billed Treatment 1 visit EX 10 min MARCO ANTONIO PEREA PT Aug 11, 2022 10:44
[2022-08-11 11:15] VITALS: BP 117/65
--- NOTE | 2022-08-11 11:34 | Progress Note - Ortho ---
Progress Note Subjective Date of Exam 08/11/22 Chief Complaint POD #3 R LILIAN HPI/Events since last exam mentation improved, more conversive, has not made progress with therapy Review of Systems - Allergies: Coded Allergies: cyclobenzaprine (Verified Allergy, Unknown, 06/05/22) Home Meds Active Scripts Potassium Chloride (Klor-Con M20) 20 Meq Tab.er.prt, 10 MEQ PO DAILY@0700, #30 EA Prov:ROSEANN LARA DO 07/26/22 Alprazolam (Alprazolam) 0.5 Mg Tablet, 0.5 MG PO Q6H PRN for ANXIETY, #20 TAB Prov:JANEROSEANN DO 07/26/22 Acetaminophen (Acetaminophen) 325 Mg Tablet, 650 MG PO Q8H PRN for PAIN-MILD (1- 4), #30 TAB Prov:ROSEANN LARA DO 07/26/22 Tramadol HCl (Tramadol HCl) 50 Mg Tablet, 50 MG PO Q8H PRN for PAIN-MODERATE (5- 7), #30 TAB Prov:ROSEANN LARA DO 07/26/22 Rivaroxaban (XARELTO TABLET) 15 Mg Tablet, 15 MG PO DAILY@0800, #30 TAB Prov:JANEROSEANN DO 07/26/22 Amlodipine Besylate (Amlodipine Besylate) 5 Mg Tablet, 5 MG PO DAILY, #30 TAB Prov:JANEROSEANN DO 07/26/22 Diltiazem HCl (Diltiazem ER) 360 Mg Capsule.er, 360 MG PO DAILY, #30 CAP Prov:ROSEANN LARA DO 07/26/22 Gabapentin (Neurontin) 300 Mg Capsule, 300 MG PO 1200,1999, #60 CAP Prov:ROSEANN LARA DO 07/26/22 Gabapentin (Neurontin) 300 Mg Capsule, 600 MG PO DAILY, #60 CAP TAKES 2 (300MG) CAPS Prov:ROSEANN LARA DO 07/26/22 Bupropion HCl (Bupropion Xl) 150 Mg Tab.er.24h, 150 MG PO DAILY, #30 TAB Prov:ROSEANN LARA DO 07/26/22 Pantoprazole Sodium (Pantoprazole Sodium) 40 Mg Tablet.dr, 40 MG PO DAILY, #30 TAB Prov:ROSEANN LARA DO 07/26/22 Objective Exam R Hip: Dressing C/D/I, +DF of ankle, no s/s of DVT Vital Signs Vital Signs Date Time Temp Pulse Resp B/P (MAP) Pulse Ox O2 Delivery O2 Flow Rate FiO2 08/11/22 08:32 36.8 88 18 128/67 (87) 90 Room Air 08/11/22 03:42 37.0 101 19 142/63 (89) 93 Room Air 08/10/22 23:44 37.0 89 18 140/63 (88) 91 Room Air 08/10/22 20:58 Room Air 08/10/22 19:04 36.8 89 18 111/51 (71) 94 Room Air 08/10/22 15:43 36.5 84 16 137/74 (95) 93 Room Air 08/10/22 11:49 36.4 84 18 111/65 (80) 95 Room Air I & O 08/11/22 07:00 Intake Total 2410 ml Output Total 1550 ml Balance 860 ml Lab Results Laboratory Tests 08/11/22 05:18: White Blood Count 10.1, Red Blood Count 3.57L, Hemoglobin 8.8L, Hematocrit 29L, Mean Corpuscular Volume 81, Mean Corpuscular Hemoglobin 25, Mean Corpuscular Hemoglobin Concent 30L, Red Cell Distribution Width 18.0H, Platelet Count 246, Mean Platelet Volume 9.5, Immature Granulocyte % (Auto) 1, Neutrophils (%) (Auto) 77H, Lymphocytes (%) (Auto) 11L, Monocytes (%) (Auto) 11, Eosinophils (%) (Auto) 0, Basophils (%) (Auto) 0, Neutrophils # (Auto) 7.8, Lymphocytes # (Auto) 1.1, Monocytes # (Auto) 1.1H, Eosinophils # (Auto) 0.0, Basophils # (Auto) 0.0, Immature Granulocyte # (Auto) 0.1, Sodium Level 133L, Potassium Level 3.8, Chloride Level 100, Carbon Dioxide Level 21, Anion Gap 12, Blood Urea Nitrogen 13, Creatinine 0.70, Estimat Glomerular Filtration Rate 90, BUN/Creatinine Ratio 19, Glucose Level 134H, Calcium Level 8.7, Corrected Calcium 9.7, Total Bilirubin 0.6, Aspartate Amino Transf (AST/SGOT) 20, Alanine Aminotransferase (ALT/SGPT) < 6, Alkaline Phosphatase 89, Total Protein 6.1L, Albumin 2.8L Microbiology 08/08/22 MRSA Screen - Final, Complete MRSA not isolated Assessment and Plan Assessment Right Hip Primary Osteoarthritis s/p R LILIAN Problem List Right Hip Primary Osteoarthritis s/p R LILIAN Plan PT/OT DVT Prophylaxis Will need swing bed when able or extended care Final Diagonsis Right Hip Primary Osteoarthritis s/p R LILIAN Level of the visit: Level 3 (postop global) BILLY MARAVILLA MD Aug 11, 2022 11:34
--- NOTE | 2022-08-11 12:07 | Progress Note ---
Subjective Date Seen by a Provider: Aug 11, 2022 Time Seen by a Provider: 11:00 Subjective/Events-last exam Patient doing pretty well Very slow recovery Conferred with Dr. Arce Discharge plan for tomorrow back to [facility] Review of Systems General: Fatigue Musculoskeletal: leg pain Neurological: Confusion Objective Exam Last Set of Vital Signs Vital Signs Date Time Temp Pulse Resp B/P (MAP) Pulse Ox O2 Delivery O2 Flow Rate FiO2 08/11/22 11:15 36.1 78 16 117/65 (82) 94 Room Air 08/10/22 03:31 1.00 Capillary Refill : Less Than 3 Seconds I&O Intake and Output 08/11/22 00:00 Intake Total 1410 ml Output Total 2150 ml Balance -740 ml Intake Oral 1410 ml Output Urine Total 2150 ml # Voids 2 General: Alert, Cooperative, No Acute Distress Lungs: Clear to Auscultation Heart: Regular Rate Results Lab Laboratory Tests 08/11/22 05:18: White Blood Count 10.1, Red Blood Count 3.57L, Hemoglobin 8.8L, Hematocrit 29L, Mean Corpuscular Volume 81, Mean Corpuscular Hemoglobin 25, Mean Corpuscular Hemoglobin Concent 30L, Red Cell Distribution Width 18.0H, Platelet Count 246, Mean Platelet Volume 9.5, Immature Granulocyte % (Auto) 1, Neutrophils (%) (Auto) 77H, Lymphocytes (%) (Auto) 11L, Monocytes (%) (Auto) 11, Eosinophils (%) (Auto) 0, Basophils (%) (Auto) 0, Neutrophils # (Auto) 7.8, Lymphocytes # (Auto) 1.1, Monocytes # (Auto) 1.1H, Eosinophils # (Auto) 0.0, Basophils # (Auto) 0.0, Immature Granulocyte # (Auto) 0.1, Sodium Level 133L, Potassium Level 3.8, Chloride Level 100, Carbon Dioxide Level 21, Anion Gap 12, Blood Urea Nitrogen 13, Creatinine 0.70, Estimat Glomerular Filtration Rate 90, BUN/Creatinine Ratio 19, Glucose Level 134H, Calcium Level 8.7, Corrected Calcium 9.7, Total Bilirubin 0.6, Aspartate Amino Transf (AST/SGOT) 20, Alanine Aminotransferase (ALT/SGPT) < 6, Alkaline Phosphatase 89, Total Protein 6.1L, Albumin 2.8L Microbiology 08/08/22 MRSA Screen - Final, Complete MRSA not isolated Assessment/Plan Assessment/Plan Assess & Plan/Chief Complaint Assessment: s/p right hip replacement by Dr Arce uncomplicated POD # 3 Post op delirium AF HTN HLP Anxiety GERD Neuropathy Chronic debility who lives in [place] Plan: Pain control minimize Monitor nausea Home meds Discharge back to [place] [facility] Monday Diagnosis/Problems Diagnosis/Problems (1) Atrial fibrillation Status: Acute (2) Primary osteoarthritis of right hip ROSEANN LARA DO Aug 11, 2022 12:07
--- NOTE | 2022-08-11 14:15 | Physical Therapy Progress Note ---
Therapy Progress Note Patient sleeping upon PT arrival. PT did wake patient. Patient declined PT stating, "Not now. I hurt too bad." PT attempted to encourage patient to participate with bed exercises, however, patient continue to refuse. RN notified. Will attempt in a.m. 1 ref MARCO ANTONIO PEREA PT Aug 11, 2022 14:14
[2022-08-11 15:24] VITALS: BP 123/73
[2022-08-11 19:21] VITALS: BP 118/64
[2022-08-11 23:37] VITALS: BP 124/96
[2022-08-12] MEDS: 1/2 NS IV SOLUTION 1,000 ML IV SCH (04:44)
[2022-08-12] MEDS: ALPRAZolam 0.5 MG (XANAX) TAB PO PRN (04:46)
[2022-08-12 05:45] LABS: BASOPHILS % (AUTO) 0 % (0-10); EOSINOPHILS # (AUTO) 0.1 10^3/uL (0.0-0.3); EOSINOPHILS % (AUTO) 2 % (0-10); HEMATOCRIT 31 % (35-52); HEMOGLOBIN 9.3 g/dL (11.5-16.0); LYMPHOCYTES # (AUTO) 1.2 10^3/uL (1.0-4.0); LYMPHOCYTES % (AUTO) 17 % (12-44); MEAN CORPUSCULAR HEMOGLOBIN 25 pg (25-34); MEAN CORPUSCULAR HGB CONC 30 g/dL (32-36); MEAN CORPUSCULAR VOLUME 83 fL (80-99); MEAN PLATELET VOLUME 9.2 fL (9.0-12.2); MONOCYTES # (AUTO) 0.6 10^3/uL (0.0-1.0); MONOCYTES % (AUTO) 9 % (0-12); NEUTROPHILS # (AUTO) 5.2 10^3/uL (1.8-7.8); NEUTROPHILS % (AUTO) 72 % (42-75); PLATELET COUNT 222 10^3/uL (130-400); WHITE BLOOD COUNT 7.2 10^3/uL (4.3-11.0)
[2022-08-12 05:54] LABS: ALBUMIN 2.8 GM/DL (3.2-4.5); CHLORIDE 104 MMOL/L (98-107); SODIUM 137 MMOL/L (135-145)
[2022-08-12 05:55] LABS: CALCIUM 8.7 MG/DL (8.5-10.1)
[2022-08-12 05:57] LABS: GLUCOSE 115 MG/DL (70-105); TOTAL PROTEIN 6.3 GM/DL (6.4-8.2)
[2022-08-12 05:58] LABS: BILIRUBIN,TOTAL 0.6 MG/DL (0.1-1.0); CARBON DIOXIDE 22 MMOL/L (21-32)
[2022-08-12 06:00] LABS: ALKALINE PHOSPHATASE 81 U/L (40-136); CREATININE SERUM 0.69 MG/DL (0.60-1.30); GFR ESTIMATED 90
[2022-08-12 06:01] LABS: BUN/CREATININE RATIO 19
[2022-08-12 06:03] LABS: ALANINE AMINOTRANSFERASE < 6 U/L (0-55)
[2022-08-12] MEDS: KCL 20 MEQ TAB (K-DUR) PO SCH (06:31)
[2022-08-12] MEDS: MULTIVIT W/MINERALS TAB (THERAGRAN M) PO SCH (06:31)
[2022-08-12] MEDS: RIVAROXABAN 15 MG TABLET (XARELTO) PO SCH (08:05)
[2022-08-12] MEDS: CELECOXIB 100 MG (CeleBREX) CAP PO SCH (08:05)
[2022-08-12] MEDS: GABAPENTIN 300 MG (NEURONTIN) CAP PO SCH (08:05)
[2022-08-12 08:06] VITALS: BP 128/71
[2022-08-12] MEDS: amLODIPine 5 MG (NORVASC) TAB PO SCH (08:06)
[2022-08-12] MEDS: PANTOPRAZOLE 40 MG (PROTONIX) TAB PO SCH (08:06)
[2022-08-12] MEDS: DOCUSATE SODIUM 100 MG (COLACE) CAP PO SCH (08:06)
[2022-08-12] MEDS ORDERED: OXC5T PO (10:16)
--- NOTE | 2022-08-12 10:21 | Discharge Summary ---
Discharge Summary Hospital Course Problems/Dx: (1) Atrial fibrillation Status: Acute (2) Primary osteoarthritis of right hip Hospital Course Date of Admission: Aug 09, 2022 at 08:23 Admission Diagnosis : Right Hip Primary Osteoarthritis Family Physician/Provider: Vaughn Boggs DO Date of Discharge: 08/12/22 Discharge Diagnosis: [ Right Hip Primary Osteoarthritis s/p R LILIAN] Hospital Course: [Admitted on 08/08/22. Underwent right total hip arthroplasty. Tolerated the procedure well and was admitted to the regular floor. On POD #1, had significant confusion and was not able to participate in therapy. Medical consultation had been obtained and she was evaluated. On POD #2, continued to remain somewhat confused was only able to perform bed exercises for therapy. On POD #3, mentation had significantly improved; however, she was refusing therapy. On POD #4, given lack of progress and cooperation, she was ready for transfer to shelter/long term facility. ] Labs and Pending Lab Test: Laboratory Tests 08/12/22 05:35: White Blood Count 7.2, Red Blood Count 3.77L, Hemoglobin 9.3L, Hematocrit 31L, Mean Corpuscular Volume 83, Mean Corpuscular Hemoglobin 25, Mean Corpuscular Hemoglobin Concent 30L, Red Cell Distribution Width 18.2H, Platelet Count 222, Mean Platelet Volume 9.2, Immature Granulocyte % (Auto) 1, Neutrophils (%) (Auto) 72, Lymphocytes (%) (Auto) 17, Monocytes (%) (Auto) 9, Eosinophils (%) (Auto) 2, Basophils (%) (Auto) 0, Neutrophils # (Auto) 5.2, Lymphocytes # (Auto) 1.2, Monocytes # (Auto) 0.6, Eosinophils # (Auto) 0.1, Basophils # (Auto) 0.0, Immature Granulocyte # (Auto) 0.1, Sodium Level 137, Potassium Level 4.0, Chloride Level 104, Carbon Dioxide Level 22, Anion Gap 11, Blood Urea Nitrogen 13, Creatinine 0.69, Estimat Glomerular Filtration Rate 90, BUN/Creatinine Ratio 19, Glucose Level 115H, Calcium Level 8.7, Corrected Calcium 9.7, Total Bilirubin 0.6, Aspartate Amino Transf (AST/SGOT) 19, Alanine Aminotransferase (ALT/SGPT) < 6, Alkaline Phosphatase 81, Total Protein 6.3L, Albumin 2.8L Microbiology 1/9/23 MRSA Screen - Final, Complete MRSA not isolated Home Meds Active Klor-Con M20 (Potassium Chloride) 20 Meq Tab.er.prt 10 Meq PO DAILY@0700 Alprazolam 0.5 Mg Tablet 0.5 Mg PO Q6H PRN Acetaminophen 325 Mg Tablet 650 Mg PO Q8H PRN Tramadol HCl 50 Mg Tablet 50 Mg PO Q8H PRN Xarelto Tablet (Rivaroxaban) 15 Mg Tablet 15 Mg PO DAILY@0800 Amlodipine Besylate 5 Mg Tablet 5 Mg PO DAILY Diltiazem ER (Diltiazem HCl) 360 Mg Capsule.er 360 Mg PO DAILY Neurontin (Gabapentin) 300 Mg Capsule 300 Mg PO 1200,2000 Neurontin (Gabapentin) 300 Mg Capsule 600 Mg PO DAILY TAKES 2 (300MG) CAPS Bupropion Xl (Bupropion HCl) 150 Mg Tab.er.24h 150 Mg PO DAILY Pantoprazole Sodium 40 Mg Tablet.dr 40 Mg PO DAILY Assessment/Pt Instructions WBAT on right leg. Walker for assist. Posterior hip dislocation precautions. Abduction pillow at all times while in bed. Dry dressing every other day to right hip site. Follow up with Dr. Goldy Arce 08/30, 08/31, or 09/01 in clinic. Discharge Physical Examination Vital Signs Vital Signs Date Time Temp Pulse Resp B/P (MAP) Pulse Ox O2 Delivery O2 Flow Rate FiO2 08/12/22 08:06 35.9 70 18 128/71 (90) 95 Room Air 08/10/22 03:31 1.00 Extremity: Other (R Hip: Dressing C/D/I, +DF of ankle, no s/s of DVT) Allergies: Coded Allergies: cyclobenzaprine (Verified Allergy, Unknown, 06/05/22) Discharge Summary Date of Admission Aug 09, 2022 at 08:23 Date of Discharge Discharge Diagnosis (1) Atrial fibrillation Status: Acute (2) Primary osteoarthritis of right hip GOLDY ARCE MD Aug 12, 2022 10:21
--- NOTE | 2022-08-12 10:23 | Discharge Inst-Skilled Nursing ---
Discharge Inst-Skilled NF Patient Instructions Patient Instructions: WBAT on right leg with walker for assistance. Posterior hip dislocation precautions. Consult/Follow Up/Orders Follow Up Appt.: Dr. Goldy Arce on 08/30, 08/31, or 09/01 Skilled NF Admit to: [facility] Certification (SNF) I certify that SNF services are required to be given on an inpatient basis because of the above named patient's need for halfway care on a continuing basis for the conditions(s) for which he/she was receiving inpatient hospital services prior to his/her transfer to the SNF. Longterm Facility Order: Nursing Services, Chief Load Dispatcher-Evaluate & Treat, Physical Therapy-Evaluate & Treat, Speech Language-Evaluate & Treat Oxygen Delivery Method: Room Air Daily Activity as Tolerated: Yes New & Resume Previous Orders Goldy Arce MD Aug 12, 2022 10:21 GOLDY ARCE MD Aug 12, 2022 10:23
--- NOTE | 2022-08-12 12:10 | Progress Note ---
Subjective Date Seen by a Provider: Aug 12, 2022 Time Seen by a Provider: 11:00 Subjective/Events-last exam Patient doing well Slow recovery Discharge back to retirement Review of Systems Musculoskeletal: leg pain Neurological: Confusion Objective Exam Last Set of Vital Signs Vital Signs Date Time Temp Pulse Resp B/P (MAP) Pulse Ox O2 Delivery O2 Flow Rate FiO2 08/12/22 08:06 35.9 70 18 128/71 (90) 95 Room Air 08/10/22 03:31 1.00 Capillary Refill : Less Than 3 Seconds I&O Intake and Output 08/12/22 00:00 Intake Total 2660 ml Output Total 1350 ml Balance 1310 ml Intake Oral 1660 ml IV Total 1000 ml Output Urine Total 1350 ml # Voids 1 General: Alert, Cooperative, Other (Sleepy) Lungs: Clear to Auscultation, Normal Air Movement Heart: Regular Rate, Normal S1, Normal S2, No Murmurs Results Lab Laboratory Tests 08/12/22 05:35: White Blood Count 7.2, Red Blood Count 3.77L, Hemoglobin 9.3L, Hematocrit 31L, Mean Corpuscular Volume 83, Mean Corpuscular Hemoglobin 25, Mean Corpuscular Hemoglobin Concent 30L, Red Cell Distribution Width 18.2H, Platelet Count 222, Mean Platelet Volume 9.2, Immature Granulocyte % (Auto) 1, Neutrophils (%) (Auto) 72, Lymphocytes (%) (Auto) 17, Monocytes (%) (Auto) 9, Eosinophils (%) (Auto) 2, Basophils (%) (Auto) 0, Neutrophils # (Auto) 5.2, Lymphocytes # (Auto) 1.2, Monocytes # (Auto) 0.6, Eosinophils # (Auto) 0.1, Basophils # (Auto) 0.0, Immature Granulocyte # (Auto) 0.1, Sodium Level 137, Potassium Level 4.0, Chloride Level 104, Carbon Dioxide Level 22, Anion Gap 11, Blood Urea Nitrogen 13, Creatinine 0.69, Estimat Glomerular Filtration Rate 90, BUN/Creatinine Ratio 19, Glucose Level 115H, Calcium Level 8.7, Corrected Calcium 9.7, Total Bilirubin 0.6, Aspartate Amino Transf (AST/SGOT) 19, Alanine Aminotransferase (ALT/SGPT) < 6, Alkaline Phosphatase 81, Total Protein 6.3L, Albumin 2.8L Microbiology 08/08/22 MRSA Screen - Final, Complete MRSA not isolated Assessment/Plan Assessment/Plan Assess & Plan/Chief Complaint Assessment: s/p right hip replacement by Dr Arce uncomplicated POD # 4 Post op delirium AF HTN HLP Anxiety GERD Neuropathy Chronic debility who lives in [place] Plan: Pain control minimize Monitor nausea Home meds Discharge back to retirement Diagnosis/Problems Diagnosis/Problems (1) Atrial fibrillation Status: Acute (2) Primary osteoarthritis of right hip ROSEANN LARA DO Aug 12, 2022 12:10
== END 2022-08-12 12:20 | DRG 470 ==
LOC: SDC 09:59 → EDSTATUS 11:50 → 4TH 17:32 → SDC 08-09 08:22 → 4TH 08-09 08:23
PROVIDERS: ADMIT Orthopaedic Surgery; ATTEND Orthopaedic Surgery
PROC: 0SR90JA Replacement of Right Hip Joint with Synthetic Substitute, Uncemented, Open Approach (ICD-10-PCS; principal; 2022-08-08 13:39)
DX: M16.11 Unilateral primary osteoarthritis, right hip (principal); I10 Essential (primary) hypertension; E78.5 Hyperlipidemia, unspecified; I48.91 Unspecified atrial fibrillation; Z87.891 Personal history of nicotine dependence; E78.00 Pure hypercholesterolemia, unspecified; F41.9 Anxiety disorder, unspecified; F32.A Depression, unspecified; G62.9 Polyneuropathy, unspecified; K21.9 Gastro-esophageal reflux disease without esophagitis; R41.0 Disorientation, unspecified; R53.81 Other malaise
CPT/HCPCS: 36415; 72170; 80053; 85025; 87081; 94640; 94664

== ENCOUNTER → 2022-08-30 | Outpatient (CLI) | payer MEDICARE, MEDICAID ==
[~2022-08-30] MED LIST changes: +OXC5T PO
== END ==
LOC: ORTHO 14:49
PROVIDERS: ATTEND Orthopaedic Surgery
DX: Z47.89 Encounter for other orthopedic aftercare (principal)

== ENCOUNTER → 2022-09-27 | Outpatient (CLI) | payer MEDICARE, MEDICAID ==
--- NOTE | 2022-09-27 16:02 | Diagnostic Imaging Report ---
INDICATION: Right hip pain COMPARISON: 07/12/2022 and 08/08/2022 TECHNIQUE: 2 radiographs of the right hip dated 09/27/2022 FINDINGS: Right total hip arthroplasty is again identified without hardware complication. No acute fracture or dislocation. No destructive osseous process. Significant background vascular calcifications. No suspicious radiopaque foreign body. IMPRESSION: Right total hip arthroplasty without hardware complication or acute osseous abnormality. Significant background vascular calcifications. Dictated by: Dictated on workstation # [id number]
== END ==
LOC: ORTHO 11:04
PROVIDERS: ATTEND Orthopaedic Surgery
DX: M25.551 Pain in right hip (principal); Z96.641 Presence of right artificial hip joint
CPT/HCPCS: 73502

== ENCOUNTER → 2022-11-01 | Outpatient (CLI) | payer MEDICARE, MEDICAID ==
--- NOTE | 2022-11-01 17:07 | Diagnostic Imaging Report ---
INDICATION: Knee replacement, followup. TECHNIQUE: AP and lateral views of the right knee were obtained. COMPARISON: There is no prior study for comparison. FINDINGS: The is a well aligned right knee prosthesis. There is no sign of fracture or device loosening. There is no acute bony abnormality. IMPRESSION: Well aligned right knee prosthesis with no acute abnormality. Dictated by: Dictated on workstation # [id number]
== END ==
LOC: ORTHO 14:54
PROVIDERS: ATTEND Orthopaedic Surgery
DX: Z96.651 Presence of right artificial knee joint (principal)
CPT/HCPCS: 73560

== ENCOUNTER 2022-11-19 12:25 | Emergency (ER) | payer MEDICARE, MEDICAID ==
--- NOTE | 2022-11-19 14:08 | ED General ---
General Chief Complaint: Cough/Cold/Flu Symptoms Stated Complaint: SOA Nursing Triage Note: PT TO [facility] BY [facility] WITH C/O COUGH X3 WEEKS. PT STATES SHE HAS BEEN COUGHING UP THICK MUCOUS Source of Information: Patient Exam Limitations: No Limitations History of Present Illness Date Seen by Provider: Nov 19, 2022 Time Seen by Provider: 13:20 Initial Comments 77-year-old female presents to the ED via EMS from [facility] with complaints of shortness of air and left upper back pain. She reports she has had shortness of breath for the last 4 months, she first stated that it was actually getting better, but then reported over the last 3 days that she becomes winded with walking which is normal, but reports that the shortness of breath continues after resting which is abnormal. She denies any swelling in her legs, surgery within the last 4 weeks, bedrest, chemotherapy, hemoptysis. She also reports left mid to upper back pain. Reports history of osteoarthritis. She states she has had this pain for many years, states that the pain is intermittent. States that it will go away for a few months and then return for a few months. She reports that restarted approximately 2 months ago. States the pain is always the same, but reports it is currently more intense. Patient has tramadol which she can take, she did not take any this morning. Reports that tramadol does help her pain. Denies fevers, chest pain, abdominal pain, nausea, vomiting, diarrhea, edema. Patient has COPD and continues to smoke. Allergies and Home Medications Allergies Coded Allergies: cyclobenzaprine (Verified Allergy, Unknown, 06/05/22) Patient Home Medication List Home Medication List Reviewed: Yes Acetaminophen (Acetaminophen) 325 Mg Tablet, 650 MG PO Q8H PRN for PAIN-MILD (1- 4) Prescribed by: ROSEANN LARA on 07/26/22 1006 Alprazolam (Alprazolam) 0.5 Mg Tablet, 0.5 MG PO Q6H PRN for ANXIETY Prescribed by: ROSEANN ALRA on 07/26/22 1007 Amlodipine Besylate (Amlodipine Besylate) 5 Mg Tablet, 5 MG PO DAILY Prescribed by: ROSEANN LARA on 07/26/22 1006 Bupropion HCl (Bupropion Xl) 150 Mg Tab.er.24h, 150 MG PO DAILY Prescribed by: ROSEANN LARA on 07/26/22 1006 Diltiazem HCl (Diltiazem ER) 360 Mg Capsule.er, 360 MG PO DAILY Prescribed by: ROSEANN LARA on 07/26/22 1006 Gabapentin (Neurontin) 300 Mg Capsule, 600 MG PO DAILY Prescribed by: ROSEANN LARA on 07/26/22 1006 Gabapentin (Neurontin) 300 Mg Capsule, 300 MG PO 1200,2000 Prescribed by: ROSEANN LARA on 07/26/22 1006 Oxycodone Hcl (Oxyir Tablet) 5 Mg Tab, 5 MG PO Q6H PRN for PAIN-SEVERE (8-10) Prescribed by: BILLY MARAVILLA MD on 08/12/22 1017 Pantoprazole Sodium (Pantoprazole Sodium) 40 Mg Tablet.dr, 40 MG PO DAILY Prescribed by: ROSEANN LARA on 07/26/22 1006 Potassium Chloride (Klor-Con M20) 20 Meq Tab.er.prt, 10 MEQ PO DAILY@0700 Prescribed by: ROSEANN LARA on 07/26/22 1006 Rivaroxaban (Xarelto Tablet) 15 Mg Tablet, 15 MG PO DAILY@0800 Prescribed by: ROSEANN LARA on 07/26/22 1006 Review of Systems Review of Systems Constitutional: see HPI Past Vgnrjri-Dowjtn-Ulfzcp Hx Patient Social History Tobacco Use?: Yes Tobacco type used: Cigarettes Substance use?: No Alcohol Use?: No Pt feels they are or have been: No Immunizations Up To Date Tetanus Booster (TDap): Unknown First/Initial COVID19 Vaccinat: NONE Second COVID19 Vaccination Ford: NONE Third COVID19 Vaccination Date: NONE Seasonal Allergies Seasonal Allergies: No Past Medical History Surgery/Hospitalization HX: anxiety, depression, afib hip surgeries Surgeries: Yes (BILAT TKA, ULNER NERVE REPAIRS BILAT, RIGHT SHOULDER ROTATOR CUFF REPAIR) Orthopedic Respiratory: Yes Sleep Apnea, COPD Currently Using CPAP: No Currently Using BIPAP: No Cardiac: Yes (A-FIB/FLUTTER - CARDIOVERSION 3 MONTHS AGO) Atrial Fibrillation, High Cholesterol, Hypertension, Irregular Heartbeat Neurological: No Genitourinary: No Gastrointestinal: No Musculoskeletal: Yes Arthritis Endocrine: Yes (BORDERLINE - DIET CONTROLLED ) HEENT: Yes Cataract Cancer: No Psychosocial: Yes Anxiety, Depression Integumentary: No Family Medical History No Pertinent Family Hx Physical Exam Vital Signs Vital Signs - First Documented 11/19/22 11/19/22 11/19/22 12:25 12:52 15:30 Temp 35.9 Pulse 58 Resp 17 B/P (MAP) 140/47 (78) Pulse Ox 95 O2 Delivery Room Air Capillary Refill : Height, Weight, BMI Height: '" Weight: lbs. oz. kg; 31.58 BMI Method: General Appearance: No Apparent Distress, WD/WN Neck: Non Tender, Supple Respiratory: Lungs Clear, Normal Breath Sounds, No Accessory Muscle Use, No Respiratory Distress Cardiovascular: Regular Rate, Rhythm, No Edema, No Gallop, No JVD, No Murmur Back: No Vertebral Tenderness Extremity: Normal Inspection, Normal Range of Motion Neurologic/Psychiatric: Alert, Normal Mood/Affect Skin: Normal Color, Warm/Dry Progress/Results/Core Measures Suspected Sepsis SIRS Temperature: Pulse: 58 Respiratory Rate: 17 Laboratory Tests 11/19/22 14:13: White Blood Count 7.3 Blood Pressure 140 /47 Mean: 78 Laboratory Tests 11/19/22 13:55: Creatinine 0.88, Total Bilirubin 0.3 11/19/22 14:13: Platelet Count 246 Results/Orders Lab Results Laboratory Tests Test 11/19/22 13:55 11/19/22 14:13 Range/Units Sodium Level 141 135-145 MMOL/L Potassium Level 4.6 3.6-5.0 MMOL/L Chloride Level 107 98-107 MMOL/L Carbon Dioxide Level 22 21-32 MMOL/L Anion Gap 12 5-14 MMOL/L Blood Urea Nitrogen 23 H 7-18 MG/DL Creatinine 0.88 0.60-1.30 MG/DL Estimat Glomerular Filtration Rate 68 BUN/Creatinine Ratio 26 Glucose Level 95 70-105 MG/DL Calcium Level 8.6 8.5-10.1 MG/DL Corrected Calcium 8.9 8.5-10.1 MG/DL Total Bilirubin 0.3 0.1-1.0 MG/DL Aspartate Amino Transf (AST/SGOT) 24 5-34 U/L Alanine Aminotransferase (ALT/SGPT) 15 0-55 U/L Alkaline Phosphatase 115 40-136 U/L Troponin I < 0.028 <0.028 NG/ML Total Protein 6.8 6.4-8.2 GM/DL Albumin 3.6 3.2-4.5 GM/DL White Blood Count 7.3 4.3-11.0 10^3/uL Red Blood Count 3.92 3.80-5.11 10^6/uL Hemoglobin 10.4 L 11.5-16.0 g/dL Hematocrit 35 35-52 % Mean Corpuscular Volume 88 80-99 fL Mean Corpuscular Hemoglobin 27 25-34 pg Mean Corpuscular Hemoglobin Concent 30 L 32-36 g/dL Red Cell Distribution Width 14.6 H 10.0-14.5 % Platelet Count 246 130-400 10^3/uL Mean Platelet Volume 9.2 9.0-12.2 fL Immature Granulocyte % (Auto) 0 % Neutrophils (%) (Auto) 57 42-75 % Lymphocytes (%) (Auto) 28 12-44 % Monocytes (%) (Auto) 11 0-12 % Eosinophils (%) (Auto) 3 0-10 % Basophils (%) (Auto) 0 0-10 % Neutrophils # (Auto) 4.2 1.8-7.8 10^3/uL Lymphocytes # (Auto) 2.1 1.0-4.0 10^3/uL Monocytes # (Auto) 0.8 0.0-1.0 10^3/uL Eosinophils # (Auto) 0.2 0.0-0.3 10^3/uL Basophils # (Auto) 0.0 0.0-0.1 10^3/uL Immature Granulocyte # (Auto) 0.0 0.0-0.1 10^3/uL B-Type Natriuretic Peptide 613.4 H <100.0 PG/ML My Orders Orders - FRITZ ARANGO GEAR SHAPER SET UP OPERATOR Cbc With Automated Diff (11/19/22 13:37) Chest 1 View, Ap/Pa Only (11/19/22 13:37) Ekg Tracing (11/19/22 13:37) Comprehensive Metabolic Panel (11/19/22 13:37) Ed Iv/Invasive Line Start (11/19/22 13:37) Bnp Cobb (11/19/22 13:37) Troponin I Cobb (11/19/22 13:40) Tramadol Tablet (Ultram Tablet) (11/19/22 13:45) Medications Given in ED Vital Signs/I&O 11/19/22 11/19/22 11/19/22 12:25 12:52 15:30 Temp 35.9 35.9 Pulse 58 60 Resp 17 17 B/P (MAP) 140/47 (78) 136/51 Pulse Ox 95 O2 Delivery Room Air Room Air Capillary Refill : Blood Pressure Mean: 78 Progress Note : Time: 14:14 Progress Note Patient seen and evaluated, resting comfortably in bed, no acute distress. Based on exam and symptoms, differential diagnoses include pneumonia, CHF exacerbation, COPD exacerbation, PE, OR, work-up initiated including CBC, CMP, troponin, BNP, chest x-ray, EKG. Considered D-dimer, but Wells score for PE is 0. I do not think this is a PE because of low Wells score and assessment. I also do not think this is a COPD exacerbation due to clear lung sounds. Patient takes tramadol for her osteoarthritis, ordered 1 dose of tramadol here. Patient did not take any this morning. 1518 labs and x-ray reviewed. CBC shows decreased hemoglobin 10.4, hematocrit normal. CMP shows slightly elevated BUN 23, creatinine normal 0.88, GFR 68. Troponin negative. BNP 613, this is improved from previous. EKG non-concerning for OR. Chest x-ray shows cardiomegaly, no other abnormalities. I do not think patient is fluid overloaded needing admission or lasix at this time. I think patient is stable for discharge to follow up with cardiology. I will also suggest patient follow up with a assistant professor of philosophy regarding her COPD, patient does not appear to be having a COPD exacerbation at this time. Patient is requesting orthopedics information to follow up for her osteoarthritis. Results discussed with patient. Discharge instructions and return precautions provided. ECG Initial ECG Impression Date: Nov 19, 2022 Initial ECG Impression Time: 14:57 Initial ECG Rate: 65 Initial ECG Rhythm: Normal Sinus Initial ECG Intervals: NM (NM prolonged) Initial ECG Comparisson: Unchanged Comment NM interval appears prolonged on previous EKG. Left atrial enlargement noted on EKG. No Q waves, ST elevation, or T wave inversion. Diagnostic Imaging Diagonstic Imaging: Xray Plain Films/CT/US/NM/MRI: chest Comments [facility]. [place], [place] NAME: DENNIS,MARY Shruthi [facility] REC#: [id number] PT STATUS: DEP ER : 1945 PHYSICIAN: FRITZ ARANOG APRN ADMIT DATE: 11/19/22/ER Signed Date of Exam:11/19/22 CHEST 1 VIEW, AP/PA ONLY INDICATION: Cough for 3 weeks. Time of Exam: 2:06 PM Correlation is made with prior chest 06/25/2022. Heart is enlarged. Lungs are clear. No infiltrates are seen. There is no effusion or pneumothorax. IMPRESSION: Cardiomegaly. No acute abnormality is detected. Dictated by: Dictated on workstation # [id number] Dict: 11/19/22 1406 Trans: 11/19/22 1614 [facility] [id number] Interpreted by: ROSENDO FRIEND MD Electronically signed by: ROSENDO FRIEND MD 11/19/22 1614 Departure Impression Primary Impression: Shortness of breath Additional Impression: Osteoarthritis Disposition: 01 HOME, SELF-CARE Condition: Stable Departure-Patient Inst. Decision time for Depature: 15:18 Referrals: DEMETRIUS WEBSTER DO (PCP/Family) Primary Care Physician BILLY MARAVILLA MD Patient Instructions: Shortness of Breath (Dyspnea) (DC) Add. Discharge Instructions: Follow-up with your primary care provider. Call your pneumatic jacketer on Monday to schedule an appointment for next week. Your shortness of breath could be related to your heart. Call pulmonology to schedule an appointment for your COPD. Call orthopedics for an appointment for your back. You can continue taking your tramadol as needed for pain. Return for worsening shortness of breath, chest pain, or any other new, concerning, or worsening symptoms. Pulmonology Luis Alberto Campos [phone] All discharge instructions reviewed with patient and/or family. Voiced underst anding. FRITZ ARANGO APRN Nov 19, 2022 14:08
--- NOTE | 2022-11-19 14:16 | Diagnostic Imaging Report ---
INDICATION: Cough for 3 weeks. Time of Exam: 2:06 PM Correlation is made with prior chest 06/25/2022. Heart is enlarged. Lungs are clear. No infiltrates are seen. There is no effusion or pneumothorax. IMPRESSION: Cardiomegaly. No acute abnormality is detected. Dictated by: Dictated on workstation # [id number]
[2022-11-19 14:24] LABS: BASOPHILS % (AUTO) 0 % (0-10); EOSINOPHILS # (AUTO) 0.2 10^3/uL (0.0-0.3); EOSINOPHILS % (AUTO) 3 % (0-10); HEMATOCRIT 35 % (35-52); HEMOGLOBIN 10.4 g/dL (11.5-16.0); LYMPHOCYTES # (AUTO) 2.1 10^3/uL (1.0-4.0); LYMPHOCYTES % (AUTO) 28 % (12-44); MEAN CORPUSCULAR HEMOGLOBIN 27 pg (25-34); MEAN CORPUSCULAR HGB CONC 30 g/dL (32-36); MEAN CORPUSCULAR VOLUME 88 fL (80-99); MEAN PLATELET VOLUME 9.2 fL (9.0-12.2); MONOCYTES # (AUTO) 0.8 10^3/uL (0.0-1.0); MONOCYTES % (AUTO) 11 % (0-12); NEUTROPHILS # (AUTO) 4.2 10^3/uL (1.8-7.8); NEUTROPHILS % (AUTO) 57 % (42-75); PLATELET COUNT 246 10^3/uL (130-400); WHITE BLOOD COUNT 7.3 10^3/uL (4.3-11.0)
[2022-11-19 14:35] LABS: ALBUMIN 3.6 GM/DL (3.2-4.5); POTASSIUM 4.6 MMOL/L (3.6-5.0)
[2022-11-19 14:36] LABS: CALCIUM 8.6 MG/DL (8.5-10.1)
[2022-11-19 14:38] LABS: TOTAL PROTEIN 6.8 GM/DL (6.4-8.2)
[2022-11-19 14:39] LABS: BILIRUBIN,TOTAL 0.3 MG/DL (0.1-1.0)
[2022-11-19 14:41] LABS: CREATININE SERUM 0.88 MG/DL (0.60-1.30)
[2022-11-19 15:30] VITALS: BP 136/51
== END 2022-11-19 15:33 | disposition home or self-care (01) ==
LOC: EDUNIT# 12:35 → ER 12:36
DX: R06.02 Shortness of breath (principal); M19.90 Unspecified osteoarthritis, unspecified site; I51.7 Cardiomegaly; F17.210 Nicotine dependence, cigarettes, uncomplicated; Z28.310 Unvaccinated for COVID-19
CPT/HCPCS: 36415; 71045; 80053; 83880; 84484; 85025; 93005

== ENCOUNTER 2023-01-07 15:15 | Emergency (ER) | payer MEDICARE, MEDICAID ==
[~2023-01-07] VITALS: Ht 162 cm; Wt 86.0 kg
[2023-01-07 15:15] VITALS: BP 135/67
[~2023-01-07 15:15] MED LIST changes: +DILT360C22 PO; -DILT360C30 PO
[2023-01-07] MEDS ORDERED: HYDR-3817 PO (15:40)
--- NOTE | 2023-01-07 15:40 | ED Integumentary General ---
General Chief Complaint: Upper Extremity Stated Complaint: LEFT SHOULDER PAIN Nursing Triage Note: ARRIVED VIA EMS FROM HOME WITH COMPLAINTS OF LEFT SHOULDER ET BACK PAIN. WAS AT PSYCHIATRIC TODAY AND RECIEVED A "PAIN" SHOT. RASH NOTED ON LEFT SHOULDER THAT PT DID NOT KNOW WAS THERE. Source: patient Exam Limitations: no limitations History of Present Illness Date Seen by Provider: Jan 07, 2023 Time Seen by Provider: 15:20 Initial Comments Patient is a 77-year-old female who presents to the emergency room with a chief complaint of burning pain in her left lateral neck, shoulder down her upper arm and into her axilla and left anterior chest wall. Patient states the burning pain and discomfort started about a week ago. She states she noticed a rash this morning. She went to [facility] and received some sort of a "shot". She states the clinic sent an antiviral medication to the pharmacy, [facility]. She has been taking Tylenol without any relief of symptoms. She states "doctors around here do not give anything stronger than Tylenol". She denies fevers, chills, productive cough. She denies dysuria urgency or frequency. She states she had diarrhea 3 days ago which spontaneously resolved. No other complaints of recent illness or injury. Patient states that she has not had the varicella vaccine. Timing/Duration: week Severity: severe Location: extremities (left shoulder) Possible Cause: no cause identified Associated Symptoms: blisters, change in skin texture, other ("burning in neck and shoulder") Allergies and Home Medications Allergies Coded Allergies: cyclobenzaprine (Verified Allergy, Unknown, 06/05/22) Patient Home Medication List Home Medication List Reviewed: Yes Acetaminophen (Acetaminophen) 325 Mg Tablet, 650 MG PO Q8H PRN for PAIN-MILD (1- 4) Prescribed by: ROSEANN LARA on 07/26/22 1006 Alprazolam (Alprazolam) 0.5 Mg Tablet, 0.5 MG PO Q6H PRN for ANXIETY Prescribed by: ROSEANN LARA on 07/26/22 1007 Amlodipine Besylate (Amlodipine Besylate) 5 Mg Tablet, 5 MG PO DAILY Prescribed by: ROSEANN LARA on 07/26/22 1006 Bupropion HCl (Bupropion Xl) 150 Mg Tab.er.24h, 150 MG PO DAILY Prescribed by: ROSEANN LARA on 07/26/22 1006 Diltiazem HCl (Diltiazem ER) 360 Mg Capsule.er, 360 MG PO DAILY Prescribed by: ROSEANN LARA on 07/26/22 100 Gabapentin (Neurontin) 300 Mg Capsule, 600 MG PO DAILY Prescribed by: ROSEANN LARA on 07/26/22 100 Gabapentin (Neurontin) 300 Mg Capsule, 300 MG PO 1200,2000 Prescribed by: ROSEANN LARA on 07/26/22 1006 Oxycodone Hcl (Oxyir Tablet) 5 Mg Tab, 5 MG PO Q6H PRN for PAIN-SEVERE (8-10) Prescribed by: BILLY MARAVILLA MD on 08/12/22 1017 Pantoprazole Sodium (Pantoprazole Sodium) 40 Mg Tablet.dr, 40 MG PO DAILY Prescribed by: ROSEANN LARA on 07/26/22 1006 Potassium Chloride (Klor-Con M20) 20 Meq Tab.er.prt, 10 MEQ PO DAILY@0700 Prescribed by: ROSEANN LARA on 07/26/22 1006 Rivaroxaban (Xarelto Tablet) 15 Mg Tablet, 15 MG PO DAILY@0800 Prescribed by: ROSEANN LARA on 07/26/22 1006 Review of Systems Review of Systems Constitutional: see HPI EENTM: no symptoms reported Respiratory: no symptoms reported Gastrointestinal: no symptoms reported Genitourinary: no symptoms reported Musculoskeletal: joint pain (left shoulder) Skin: rash Psychiatric/Neurological: Anxiety All Other Systems Reviewed Negative Unless Noted: Yes Past Rzvwexe-Lbjusi-Nsyrhb Hx Patient Social History Tobacco Use?: Yes Substance use?: No Alcohol Use?: No Immunizations Up To Date Tetanus Booster (TDap): Unknown First/Initial COVID19 Vaccinat: NONE Second COVID19 Vaccination Ford: NONE Third COVID19 Vaccination Date: NONE Seasonal Allergies Seasonal Allergies: No Past Medical History Surgery/Hospitalization HX: anxiety, depression, afib hip surgeries Surgeries: Yes (BILAT TKA, ULNER NERVE REPAIRS BILAT, RIGHT SHOULDER ROTATOR CUFF REPAIR) Orthopedic Respiratory: Yes Sleep Apnea, COPD Currently Using CPAP: No Currently Using BIPAP: No Cardiac: Yes (A-FIB/FLUTTER - CARDIOVERSION 3 MONTHS AGO) Atrial Fibrillation, High Cholesterol, Hypertension, Irregular Heartbeat Neurological: No Genitourinary: No Gastrointestinal: No Musculoskeletal: Yes Arthritis Endocrine: Yes (BORDERLINE - DIET CONTROLLED ) HEENT: Yes Cataract Cancer: No Psychosocial: Yes Anxiety, Depression Integumentary: No Family Medical History No Pertinent Family Hx Physical Exam Vital Signs Vital Signs - First Documented 01/07/23 15:15 Temp 36.0 Pulse 71 Resp 16 B/P (MAP) 135/67 (89) Pulse Ox 96 O2 Delivery Room Air Capillary Refill : Less Than 3 Seconds General Appearance: WD/WN, mild distress (pressured speech; anxious) HEENT: PERRL/EOMI Respiratory: no respiratory distress, no accessory muscle use Extremities: normal range of motion, normal capillary refill Neurologic/Psychiatric: alert, oriented x 3, other (anxious) Skin: warm/dry, ecchymosis (left distal forearm), rash (left shoulder - patchy erythema with scattered spots of a "dew drop on a rosalia petal" (vesicles). multiple varied stages. left prox upper arm is tender to palpation, even the skin is tender.) Skin Problem Character: macules, papules, vesicular Progress/Results/Core Measures Results/Orders Vital Signs/I&O 01/07/23 15:15 Temp 36.0 Pulse 71 Resp 16 B/P (MAP) 135/67 (89) Pulse Ox 96 O2 Delivery Room Air Blood Pressure Mean: 89 Departure Impression Primary Impression: Shingles rash Qualified Codes: B02.9 - Zoster without complications Disposition: 01 HOME, SELF-CARE Condition: Stable Departure-Patient Inst. Decision time for Depature: 15:40 Referrals: DEMETRIUS WEBSTER DO (PCP/Family) Primary Care Physician Patient Instructions: Shingles (DC) Add. Discharge Instructions: : Keep the rash area clean, wash with a mild soap and water daily. Take the antiviral prescription as directed every day until the medications are gone. Hydrocodone 7.5 mg tablets, take 1 with 1 extra strength Tylenol every 6 hours as needed for pain. Please call and make a follow-up appointment with your primary care provider at [facility] in 1 to 2 weeks. Return to the emergency room for any new, concerning or emergent complaints. Scripts Hydrocodone/Acetaminophen (Hydrocodone-Acetamin 7.5-325) 7.5 Mg-325 Mg Tablet 1 EACH PO Q6H PRN for PAIN-BREAKTHROUGH, #15 TAB Prov: EMMETT DIAZ MD 6/10/23 Copy Copies To 1: DEMETRIUS WEBSTER KATHRYN M MD Jan 07, 2023 15:40
[2023-01-07] MEDS ORDERED: HYDROcodone/APAP 7.5 MG/325 MG (LORTAB, LORCET PLUS) TABLET PO ONE (15:45)
== END 2023-01-07 15:58 | disposition home or self-care (01) ==
LOC: EDUNIT# 15:15 → ER 15:19
DX: B02.9 Zoster without complications (principal); Z28.310 Unvaccinated for COVID-19
CPT/HCPCS: 99283

== ENCOUNTER 2023-02-07 16:51 | Emergency (ER) | payer MEDICARE, MEDICAID ==
[~2023-02-07] VITALS: Ht 165.1 cm; Wt 86.2 kg
[~2023-02-07 16:51] MED LIST changes: +HYDR-3817 PO
--- NOTE | 2023-02-07 17:11 | ED Respiratory ---
General Chief Complaint: Respiratory Problems Stated Complaint: SOB Nursing Triage Note: PT TO ED BY EMS WITH C/O SOB. PT REPORTS SHE BECAME SOB THIS MORNING AND THEN LIGHT HEADED. PT REPORTS SHE HAS BEEN HAVING THESE "SPELLS" FOR SEVERAL MONTHS WHEN SHE STANDS AND HAS BEEN DR. STOUT AT [facility] AND IS SCHEDULED FOR AN ECHO TOMORROW. PT DENIES SOB OR CP AT THIS TIME. Source: patient Exam Limitations: no limitations History of Present Illness Date Seen by Provider: Feb 07, 2023 Time Seen by Provider: 17:09 Initial Comments Patient is a 77-year-old female who presents ED with shortness of breath and dizziness. Shortness of breath and dizziness over the past several months. See ms to to be worse when she gets up from a standing position and starts to walk. She typically has to sit down with improvement. She has no chest pain during these episodes. She states she has seen Dr. Stout quality control systems manager. Scheduled for an echo tomorrow. She states symptoms typically resolve but today the symptoms got worse. She is currently asymptomatic. She has a history of A-fib currently on Xarelto. She denies any recent travels or surgeries. She does take Lasix for edema. Denies history of coronary artery disease, CHF, stroke, cancer. She has no headache, visual changes, fever, chills, cough, abdominal pain, vomiting or diarrhea. She is concerned she may be dehydrated. She denies syncope but has a sensation that she is going to pass out. She has no focal neural deficits such as unilateral weakness, sensory changes, facial droop, visual changes Allergies and Home Medications Allergies Coded Allergies: cyclobenzaprine (Verified Allergy, Unknown, 06/05/22) Patient Home Medication List Home Medication List Reviewed: Yes Acetaminophen (Acetaminophen) 325 Mg Tablet, 650 MG PO Q8H PRN for PAIN-MILD (1- 4) Prescribed by: ROSEANN LARA on 07/26/22 1006 Alprazolam (Alprazolam) 0.5 Mg Tablet, 0.5 MG PO Q6H PRN for ANXIETY Prescribed by: ROSEANN LARA on 07/26/22 1007 Amlodipine Besylate (Amlodipine Besylate) 5 Mg Tablet, 5 MG PO DAILY Prescribed by: ROSEANN LARA on 07/26/22 1006 Bupropion HCl (Bupropion Xl) 150 Mg Tab.er.24h, 150 MG PO DAILY Prescribed by: ROSEANN LARA on 07/26/22 1006 Diltiazem HCl (Diltiazem ER) 360 Mg Capsule.er, 360 MG PO DAILY Prescribed by: ROSEANN LARA on 07/26/22 100 Gabapentin (Neurontin) 300 Mg Capsule, 600 MG PO DAILY Prescribed by: ROSEANN LARA on 07/26/22 1006 Gabapentin (Neurontin) 300 Mg Capsule, 300 MG PO 1200,1999 Prescribed by: ROSEANN LARA on 07/26/22 1006 Hydrocodone/Acetaminophen (Hydrocodone-Acetamin 7.5-325) 7.5 Mg-325 Mg Tablet, 1 EACH PO Q6H PRN for PAIN-BREAKTHROUGH Prescribed by: EMMETT DIAZ on 01/07/23 1541 Oxycodone Hcl (Oxyir Tablet) 5 Mg Tab, 5 MG PO Q6H PRN for PAIN-SEVERE (8-10) Prescribed by: BILLY MARAVILLA MD on 08/12/22 1017 Pantoprazole Sodium (Pantoprazole Sodium) 40 Mg Tablet.dr, 40 MG PO DAILY Prescribed by: ROSEANN LARA on 07/26/22 1006 Potassium Chloride (Klor-Con M20) 20 Meq Tab.er.prt, 10 MEQ PO DAILY@0700 Prescribed by: ROSEANN LARA on 07/26/22 1006 Rivaroxaban (Xarelto Tablet) 15 Mg Tablet, 15 MG PO DAILY@0800 Prescribed by: ROSEANN LARA on 07/26/22 1006 Review of Systems Review of Systems Constitutional: No chills, No diaphoresis; dizziness; No malaise, No weakness EENTM: No hearing loss, No ear pain, No blurred vision Respiratory: No cough, No dyspnea on exertion; short of breath Cardiovascular: No chest pain Gastrointestinal: No abdominal pain, No diarrhea, No dysphagia, No nausea, No vomiting Genitourinary: No decreased output, No discharge Musculoskeletal: No back pain, No joint swelling, No muscle pain Skin: No change in color All Other Systems Reviewed Negative Unless Noted: Yes Past Svgsmmw-Gmautq-Cbfswz Hx Patient Social History Tobacco Use?: Yes Tobacco type used: Cigarettes Smoking Status: Current Everyday Smoker Use of E-Cig and/or Vaping dev: No Substance use?: No Alcohol Use?: No Pt feels they are or have been: No Immunizations Up To Date Tetanus Booster (TDap): Unknown Influenza Vaccine Up-to-Date: Yes; Up-to-Date First/Initial COVID19 Vaccinat: NONE Second COVID19 Vaccination Ford: NONE Third COVID19 Vaccination Date: NONE Seasonal Allergies Seasonal Allergies: No Past Medical History Surgery/Hospitalization HX: COPD, anxiety, depression, afib hip surgeries Surgeries: Yes (BILAT TKA, ULNER NERVE REPAIRS BILAT, RIGHT SHOULDER ROTATOR CUFF REPAIR) Orthopedic Respiratory: Yes Sleep Apnea, COPD Currently Using CPAP: No Currently Using BIPAP: No Cardiac: Yes (A-FIB/FLUTTER - CARDIOVERSION 3 MONTHS AGO) Atrial Fibrillation, High Cholesterol, Hypertension, Irregular Heartbeat Neurological: No Genitourinary: No Gastrointestinal: No Musculoskeletal: Yes Arthritis Endocrine: Yes (BORDERLINE - DIET CONTROLLED ) HEENT: Yes Cataract Cancer: No Psychosocial: Yes Anxiety, Depression Integumentary: No Family Medical History No Pertinent Family Hx Physical Exam Vital Signs - First Documented 02/07/23 16:51 Temp 37.5 Pulse 61 Resp 19 B/P (MAP) 128/94 (105) Pulse Ox 97 O2 Delivery Room Air Capillary Refill : Less Than 3 Seconds Height: '" Weight: lbs. oz. kg; 31.00 BMI Method: General Appearance: WD/WN, no apparent distress Eyes: Bilateral Eye Normal Inspection, Bilateral Eye PERRL, Bilateral Eye EOMI HEENT: PERRL/EOMI, normal ENT inspection, TMs normal, pharynx normal Neck: non-tender, full range of motion, supple Respiratory: chest non-tender, lungs clear, normal breath sounds, no resp iratory distress, no accessory muscle use Cardiovascular: regular rate, rhythm, no gallop, no JVD Gastrointestinal: normal bowel sounds, non tender, soft, no organomegaly Extremities: normal range of motion, non-tender, normal inspection, pedal edema Neurologic/Psychiatric: title one reading teacher II-XII nml as tested, no motor/sensory deficits, alert, normal mood/affect, oriented x 3 Skin: normal color, warm/dry Progress/Results/Core Measures Suspected Sepsis SIRS Temperature: Pulse: 61 Respiratory Rate: 19 Laboratory Tests 02/07/23 16:54: White Blood Count 7.7 Blood Pressure 128 /94 Mean: 105 Laboratory Tests 02/07/23 16:54: Creatinine 0.95, Platelet Count 233, Total Bilirubin 0.3 Results/Orders Lab Results Laboratory Tests Test 02/07/23 16:54 Range/Units White Blood Count 7.7 4.3-11.0 10^3/uL Red Blood Count 3.76 L 3.80-5.11 10^6/uL Hemoglobin 10.4 L 11.5-16.0 g/dL Hematocrit 34 L 35-52 % Mean Corpuscular Volume 90 80-99 fL Mean Corpuscular Hemoglobin 28 25-34 pg Mean Corpuscular Hemoglobin Concent 31 L 32-36 g/dL Red Cell Distribution Width 16.2 H 10.0-14.5 % Platelet Count 233 130-400 10^3/uL Mean Platelet Volume 9.6 9.0-12.2 fL Immature Granulocyte % (Auto) 0 % Neutrophils (%) (Auto) 60 42-75 % Lymphocytes (%) (Auto) 32 12-44 % Monocytes (%) (Auto) 6 0-12 % Eosinophils (%) (Auto) 2 0-10 % Basophils (%) (Auto) 0 0-10 % Neutrophils # (Auto) 4.6 1.8-7.8 10^3/uL Lymphocytes # (Auto) 2.5 1.0-4.0 10^3/uL Monocytes # (Auto) 0.5 0.0-1.0 10^3/uL Eosinophils # (Auto) 0.1 0.0-0.3 10^3/uL Basophils # (Auto) 0.0 0.0-0.1 10^3/uL Immature Granulocyte # (Auto) 0.0 0.0-0.1 10^3/uL Sodium Level 141 135-145 MMOL/L Potassium Level 3.9 3.6-5.0 MMOL/L Chloride Level 110 H 98-107 MMOL/L Carbon Dioxide Level 19 L 21-32 MMOL/L Anion Gap 12 5-14 MMOL/L Blood Urea Nitrogen 34 H 7-18 MG/DL Creatinine 0.95 0.60-1.30 MG/DL Estimat Glomerular Filtration Rate 62 BUN/Creatinine Ratio 36 Glucose Level 122 H 70-105 MG/DL Calcium Level 8.7 8.5-10.1 MG/DL Corrected Calcium 9.2 8.5-10.1 MG/DL Magnesium Level 1.6 1.6-2.4 MG/DL Total Bilirubin 0.3 0.1-1.0 MG/DL Aspartate Amino Transf (AST/SGOT) 15 5-34 U/L Alanine Aminotransferase (ALT/SGPT) < 6 0-55 U/L Alkaline Phosphatase 80 40-136 U/L Troponin I < 0.028 <0.028 NG/ML B-Type Natriuretic Peptide 332.3 H <100.0 PG/ML Total Protein 6.3 L 6.4-8.2 GM/DL Albumin 3.4 3.2-4.5 GM/DL My Orders Orders - DESTINEY TRUJILLO PA Cbc With Automated Diff (02/07/23 17:04) Comprehensive Metabolic Panel (02/07/23 17:04) Troponin I [place] (02/07/23 17:04) Bnp Jammie (02/07/23 17:04) Magnesium (02/07/23 17:04) Orthostatic Vital Signs (Adult (02/07/23 17:04) Chest 1 View, Ap/Pa Only (02/07/23 17:04) Ekg Tracing (02/07/23 17:04) Ekg Tracing (02/07/23 18:30) Vital Signs/I&O 02/07/23 02/07/23 16:51 17:31 Temp 37.5 Pulse 61 57 61 64 Resp 19 B/P (MAP) 128/94 (105) 128/53 (78) 114/60 (78) 113/60 (77) Pulse Ox 97 O2 Delivery Room Air Capillary Refill : Less Than 3 Seconds Blood Pressure Mean: 105 ECG Comment Junctional bradycardia with occasional supraventricular premature complexes, 58 bpm, QRS duration 86 MS, QTc 440 MS. EKG : Comment Sinus bradycardia, 51 bpm, QRS duration 86 MS, QTc 437 MS Departure Communication (PCP) Reviewed previous visits, H&P, lab testing, cardiac consult H&P. Patient with a history of paroxysmal A-fib. Currently on Xarelto. History of coronary artery disease. Shortness of breath and dizziness with walking over the past several months. She is scheduled to follow-up with Dr. Stout tomorrow with echocardiogram. She has seen him prior and requesting echo. Patient had a cardiac cath 06/26/2022 that showed minimal coronary plaque without obstructive disease. Ejection fraction 6065%. Normal coronary flow. 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 Echo on 06/25/2022 showed grade 2 diastolic dysfunction, mod to severe biatrial enlargement, mod MAC, mild thickening of mitral leaflets, mild MR, AoV sclerosis without stenosis. Currently on arrival she is currently asymptomatic. Brought to ED by EMS. Differential diagnosis of orthostatic hypotension, arrhythmia, CHF, pneumonia. EKG, CBC, CMP, cardiac work-up, chest x-ray was ordered. She has no neurological deficits, headache, dizziness. Symptoms seem to be worse this morning. Patient was not hypertensive. Performed orthostatics and she did not become dizzy or had a significant decrease in her blood pressure. She is currently on a diuretic for edema. Chest x-ray was negative for pneumonia, pulmonary edema. EKG showed sinus bradycardia between 50 bpm and 60 bpm. Troponin negative. Slight elevated BNP 332. Blood sugar to 122. Normal kidney function. Patient was observed here in the ED. She remained asymptomatic. Advised taking Lasix 20 mg daily for the next 7 days. She states she does not take the Lasix daily. Recommend following up with quality control systems manager tomorrow. Recommend taking your time when standing. Further evaluation needed with cardiology. If any worsening symptoms return back to ED for further evaluation. No evidence suggesting pneumonia. No abdominal tenderness. No current chest pain. Does not appear to be ACS. Due to length of symptoms outpatient follow- up Impression Primary Impression: Shortness of breath Disposition: 01 HOME, SELF-CARE Condition: Stable Departure-Patient Inst. Decision time for Depature: 18:40 Referrals: DEMETRIUS WEBSTER DO (PCP/Family) Primary Care Physician Patient Instructions: Shortness of Breath, Adult ED Add. Discharge Instructions: Need to follow-up with Dr. Stout to tomorrow for further evaluation with e chocardiogram. All discharge instructions reviewed with patient and/or family. Voiced understanding. DESTINEY TRUJILLO Feb 07, 2023 17:11
[2023-02-07 17:14] LABS: BASOPHILS % (AUTO) 0 % (0-10); EOSINOPHILS # (AUTO) 0.1 10^3/uL (0.0-0.3); EOSINOPHILS % (AUTO) 2 % (0-10); HEMATOCRIT 34 % (35-52); HEMOGLOBIN 10.4 g/dL (11.5-16.0); LYMPHOCYTES # (AUTO) 2.5 10^3/uL (1.0-4.0); LYMPHOCYTES % (AUTO) 32 % (12-44); MEAN CORPUSCULAR HEMOGLOBIN 28 pg (25-34); MEAN CORPUSCULAR HGB CONC 31 g/dL (32-36); MEAN CORPUSCULAR VOLUME 90 fL (80-99); MEAN PLATELET VOLUME 9.6 fL (9.0-12.2); MONOCYTES # (AUTO) 0.5 10^3/uL (0.0-1.0); MONOCYTES % (AUTO) 6 % (0-12); NEUTROPHILS # (AUTO) 4.6 10^3/uL (1.8-7.8); NEUTROPHILS % (AUTO) 60 % (42-75); PLATELET COUNT 233 10^3/uL (130-400); WHITE BLOOD COUNT 7.7 10^3/uL (4.3-11.0)
[2023-02-07 17:16] LABS: ALBUMIN 3.4 GM/DL (3.2-4.5)
[2023-02-07 17:17] LABS: CHLORIDE 110 MMOL/L (98-107); POTASSIUM 3.9 MMOL/L (3.6-5.0); SODIUM 141 MMOL/L (135-145)
[2023-02-07 17:18] LABS: CALCIUM 8.7 MG/DL (8.5-10.1)
[2023-02-07 17:19] LABS: GLUCOSE 122 MG/DL (70-105); TOTAL PROTEIN 6.3 GM/DL (6.4-8.2)
[2023-02-07 17:20] LABS: CARBON DIOXIDE 19 MMOL/L (21-32)
[2023-02-07 17:21] LABS: BILIRUBIN,TOTAL 0.3 MG/DL (0.1-1.0)
[2023-02-07 17:23] LABS: ALKALINE PHOSPHATASE 80 U/L (40-136); CREATININE SERUM 0.95 MG/DL (0.60-1.30); GFR ESTIMATED 62
[2023-02-07 17:24] LABS: BUN/CREATININE RATIO 36
[2023-02-07 17:25] LABS: MAGNESIUM 1.6 MG/DL (1.6-2.4)
[2023-02-07 17:26] LABS: ALANINE AMINOTRANSFERASE < 6 U/L (0-55)
[2023-02-07 17:31] VITALS: BP_SYST 113; BP_SYST 114; BP_SYST 128; BP_DIAS 53; BP_DIAS 60
--- NOTE | 2023-02-07 17:41 | Diagnostic Imaging Report ---
INDICATION: Shortness of breath. TECHNIQUE: Frontal chest obtained at 05:21 p.m. FINDINGS: Heart and mediastinal silhouette are normal in appearance. The lungs are clear. There is no pneumothorax or pleural fluid. IMPRESSION: Negative chest. Dictated by: Dictated on workstation # [id number]
[2023-02-07 18:47] VITALS: BP 135/53
== END 2023-02-07 18:50 | disposition home or self-care (01) ==
LOC: EDUNIT# 16:51 → ER 16:53
DX: R06.02 Shortness of breath (principal); R60.9 Edema, unspecified; I48.0 Paroxysmal atrial fibrillation; I25.10 Atherosclerotic heart disease of native coronary artery without angina pectoris; R00.1 Bradycardia, unspecified; F17.210 Nicotine dependence, cigarettes, uncomplicated; Z79.01 Long term (current) use of anticoagulants; Z79.899 Other long term (current) drug therapy
CPT/HCPCS: 36415; 71045; 80053; 83735; 83880; 84484; 85025; 93005

== ENCOUNTER → 2023-02-08 | Outpatient (CLI) | payer MEDICARE, MEDICAID | LOC: CARD 09:00 | PROVIDERS: ATTEND Internal Medicine Cardiovascular Disease | DX: I08.0 Rheumatic disorders of both mitral and aortic valves (principal); I48.0 Paroxysmal atrial fibrillation | CPT/HCPCS: 93306 ==

== ENCOUNTER 2023-02-14 21:14 | Emergency (ER) | payer MEDICARE, MEDICAID ==
[~2023-02-14] VITALS: Ht 165 cm; Wt 81.6 kg
--- NOTE | 2023-02-14 21:40 | ED Respiratory ---
General Chief Complaint: Respiratory Problems Stated Complaint: SOB Source: patient, EMS, old records Exam Limitations: no limitations History of Present Illness Date Seen by Provider: Feb 14, 2023 Time Seen by Provider: 21:15 Initial Comments 77yoF with PMH of afib on Xarelto, COPD, and anxiety most notably coming in due to SOB. Feeling short of breath earlier today, although she has felt this way for weeks now. She was seen in the ER recently within the past week with an work-up. She had an echo within the past week showing a normal ejection fraction and no wall motion abnormality. She denies any fever, worsening cough, chest pain, abdominal pain, nausea, vomiting, diarrhea, weakness, numbness, or any other concerns. She has not missed any doses of her Xarelto. Allergies and Home Medications Allergies Coded Allergies: cyclobenzaprine (Verified Allergy, Unknown, 06/05/22) Patient Home Medication List Home Medication List Reviewed: Yes Acetaminophen (Acetaminophen) 325 Mg Tablet, 650 MG PO Q8H PRN for PAIN-MILD (1- 4) Prescribed by: ROSEANN LARA on 07/26/22 1006 Alprazolam (Alprazolam) 0.5 Mg Tablet, 0.5 MG PO Q6H PRN for ANXIETY Prescribed by: ROSEANN LARA on 07/26/22 1007 Amlodipine Besylate (Amlodipine Besylate) 5 Mg Tablet, 5 MG PO DAILY Prescribed by: ROSEANN LARA on 07/26/22 1006 Bupropion HCl (Bupropion Xl) 150 Mg Tab.er.24h, 150 MG PO DAILY Prescribed by: ROSEANN LARA on 07/26/22 100 Diltiazem HCl (Diltiazem ER) 360 Mg Capsule.er, 360 MG PO DAILY Prescribed by: ROSEANN LARA on 07/26/22 1006 Gabapentin (Neurontin) 300 Mg Capsule, 600 MG PO DAILY Prescribed by: ROSEANN LARA on 07/26/22 100 Gabapentin (Neurontin) 300 Mg Capsule, 300 MG PO 1200,2000 Prescribed by: RSOEANN LARA on 07/26/22 1006 Hydrocodone/Acetaminophen (Hydrocodone-Acetamin 7.5-325) 7.5 Mg-325 Mg Tablet, 1 EACH PO Q6H PRN for PAIN-BREAKTHROUGH Prescribed by: EMMETT DIAZ on 01/07/23 1541 Oxycodone Hcl (Oxyir Tablet) 5 Mg Tab, 5 MG PO Q6H PRN for PAIN-SEVERE (8-10) Prescribed by: BILLY MARAVILLA MD on 08/12/22 1017 Pantoprazole Sodium (Pantoprazole Sodium) 40 Mg Tablet.dr, 40 MG PO DAILY Prescribed by: ROSEANN LARA on 07/26/22 1006 Potassium Chloride (Klor-Con M20) 20 Meq Tab.er.prt, 10 MEQ PO DAILY@0700 Prescribed by: ROSEANN LARA on 07/26/22 1006 Rivaroxaban (Xarelto Tablet) 15 Mg Tablet, 15 MG PO DAILY@0800 Prescribed by: ROSEANN LARA on 07/26/22 1006 Review of Systems Review of Systems Constitutional: No fever EENTM: no symptoms reported Respiratory: see HPI Cardiovascular: no symptoms reported Gastrointestinal: no symptoms reported Genitourinary: no symptoms reported Musculoskeletal: no symptoms reported Skin: no symptoms reported Psychiatric/Neurological: No Symptoms Reported Hematologic/Lymphatic: No Symptoms Reported Immunological/Allergic: no symptoms reported All Other Systems Reviewed Negative Unless Noted: Yes Past Dzeeaqd-Hywzfp-Wvpvdg Hx Patient Social History Tobacco Use?: Yes Tobacco type used: Cigarettes Immunizations Up To Date Tetanus Booster (TDap): Unknown First/Initial COVID19 Vaccinat: NONE Second COVID19 Vaccination [place]: NONE Third COVID19 Vaccination Date: NONE Seasonal Allergies Seasonal Allergies: No Past Medical History Surgery/Hospitalization HX: COPD, anxiety, depression, afib hip surgeries Surgeries: Yes (BILAT TKA, ULNER NERVE REPAIRS BILAT, RIGHT SHOULDER ROTATOR CUFF REPAIR) Orthopedic Respiratory: Yes Sleep Apnea, COPD Currently Using CPAP: No Currently Using BIPAP: No Cardiac: Yes (A-FIB/FLUTTER - CARDIOVERSION 3 MONTHS AGO) Atrial Fibrillation, High Cholesterol, Hypertension, Irregular Heartbeat Neurological: No Genitourinary: No Gastrointestinal: No Musculoskeletal: Yes Arthritis Endocrine: Yes (BORDERLINE - DIET CONTROLLED ) HEENT: Yes Cataract Cancer: No Psychosocial: Yes Anxiety, Depression Integumentary: No Family Medical History No Pertinent Family Hx Physical Exam Vital Signs - First Documented 02/14/23 21:17 Temp 36.5 Pulse 64 Resp 22 B/P (MAP) 135/59 (84) Pulse Ox 98 O2 Delivery Room Air Capillary Refill : Height: '" Weight: lbs. oz. kg; 31.00 BMI Method: General Appearance: WD/WN, other (anxious, talkative) HEENT: PERRL/EOMI, normal ENT inspection, pharynx normal Neck: non-tender, full range of motion, supple, normal inspection Respiratory: chest non-tender, lungs clear, normal breath sounds, no respiratory distress, no accessory muscle use Cardiovascular: regular rate, rhythm Gastrointestinal: normal bowel sounds, non tender, soft; No distended, No guarding, No rebound Extremities: normal range of motion, non-tender, normal inspection, no pedal edema, no calf tenderness, normal capillary refill Neurologic/Psychiatric: no motor/sensory deficits, alert Skin: normal color, warm/dry Progress/Results/Core Measures Suspected Sepsis SIRS Temperature: Pulse: Respiratory Rate: Laboratory Tests 02/14/23 21:38: White Blood Count 7.0 Blood Pressure / Mean: Laboratory Tests 02/14/23 21:38: Creatinine 1.23, Platelet Count 290, Total Bilirubin 0.3 Results/Orders Lab Results Laboratory Tests Test 02/14/23 21:38 Range/Units White Blood Count 7.0 4.3-11.0 10^3/uL Red Blood Count 3.67 L 3.80-5.11 10^6/uL Hemoglobin 10.2 L 11.5-16.0 g/dL Hematocrit 32 L 35-52 % Mean Corpuscular Volume 88 80-99 fL Mean Corpuscular Hemoglobin 28 25-34 pg Mean Corpuscular Hemoglobin Concent 32 32-36 g/dL Red Cell Distribution Width 16.4 H 10.0-14.5 % Platelet Count 290 130-400 10^3/uL Mean Platelet Volume 9.4 9.0-12.2 fL Immature Granulocyte % (Auto) 0 % Neutrophils (%) (Auto) 58 42-75 % Lymphocytes (%) (Auto) 31 12-44 % Monocytes (%) (Auto) 7 0-12 % Eosinophils (%) (Auto) 3 0-10 % Basophils (%) (Auto) 0 0-10 % Neutrophils # (Auto) 4.1 1.8-7.8 10^3/uL Lymphocytes # (Auto) 2.2 1.0-4.0 10^3/uL Monocytes # (Auto) 0.5 0.0-1.0 10^3/uL Eosinophils # (Auto) 0.2 0.0-0.3 10^3/uL Basophils # (Auto) 0.0 0.0-0.1 10^3/uL Immature Granulocyte # (Auto) 0.0 0.0-0.1 10^3/uL Sodium Level 142 135-145 MMOL/L Potassium Level 3.8 3.6-5.0 MMOL/L Chloride Level 110 H 98-107 MMOL/L Carbon Dioxide Level 21 21-32 MMOL/L Anion Gap 11 5-14 MMOL/L Blood Urea Nitrogen 20 H 7-18 MG/DL Creatinine 1.23 0.60-1.30 MG/DL Estimat Glomerular Filtration Rate 46 BUN/Creatinine Ratio 16 Glucose Level 102 70-105 MG/DL Calcium Level 9.2 8.5-10.1 MG/DL Corrected Calcium 9.4 8.5-10.1 MG/DL Total Bilirubin 0.3 0.1-1.0 MG/DL Aspartate Amino Transf (AST/SGOT) 14 5-34 U/L Alanine Aminotransferase (ALT/SGPT) 6 0-55 U/L Alkaline Phosphatase 80 40-136 U/L Troponin I < 0.028 <0.028 NG/ML B-Type Natriuretic Peptide 276.8 H <100.0 PG/ML Total Protein 6.8 6.4-8.2 GM/DL Albumin 3.7 3.2-4.5 GM/DL My Orders Orders - DESTINEY MENDOZA MD Ekg Tracing (02/14/23 21:24) Chest 1 View, Ap/Pa Only (02/14/23 21:24) Bnp Jammie (02/14/23 21:34) Cbc With Automated Diff (02/14/23 21:34) Comprehensive Metabolic Panel (02/14/23 21:34) Troponin I [place] (02/14/23 21:34) Albuterol/Ipra Inhalation Soln (Duoneb I (02/14/23 21:45) Dexamethasone Tablet (Decadron Tablet) (02/14/23 22:00) Medications Given in ED Current Medications Medications Dose Ordered Sig/Marco Antonio Route Start Time Stop Time Status Last Admin Dose Admin Albuterol/ Ipratropium 3 ml ONCE ONCE INH 02/14/23 21:45 02/14/23 21:46 DC 02/14/23 21:46 3 ML Vital Signs/I&O 02/14/23 02/14/23 21:17 21:42 Temp 36.5 Pulse 64 Resp 22 B/P (MAP) 135/59 (84) Pulse Ox 98 O2 Delivery Room Air Room Air Capillary Refill : Progress Note : Progress Note -year-old female with above history coming in due to shortness of breath. ABCs were intact and vitals were stable on presentation. The patient was very talkative and anxious on arrival, did not appear to be objectively. Lungs clear, but does have a history of COPD, and she is describing a tightness. Given a DuoNeb and she had near complete resolution of her symptoms. She states she used to have a nebulizer, but it was stolen, and they tend to help a lot. I will write a prescription for a nebulizer followed by DuoNeb treatments. Troponin negative, BNP similar to prior, normal creatinine, otherwise unremarkable white blood cell count. Patient continues to be well-appearing and she states she is at her baseline. She was discharged home in stable condition with strict return precautions ECG Initial ECG Impression Date: Feb 14, 2023 Initial ECG Impression Time: 21:31 Initial ECG Rate: 63 Initial ECG Rhythm: Normal Sinus Comment Narrow QRS, normal axis, no significant ST changes or TWI Diagnostic Imaging Diagonstic Imaging: Xray (chest) Comments [facility] [place], [place] NAME: [facility] REC#: [id number] PT STATUS: REG ER : 1945 PHYSICIAN: DESTINEY MENDOZA MD ADMIT DATE: 02/14/23/ER Draft Date of Exam:02/14/23 CHEST 1 VIEW, AP/PA ONLY INDICATION: 77-year-old female with shortness of breath. COMPARISONS: 02/07/2023 FINDINGS: Single view chest shows normal heart, pleura and diaphragms. No consolidations are seen. There is background chronic parenchymal changes present. There is no effusion or pneumothorax. There is aortic calcific atherosclerosis. IMPRESSION: Some chronic parenchymal changes as well as some aortic calcifications, otherwise no acute cardiopulmonary disease. Dictated on workstation # [id number] Dict: 02/14/235 Trans: 02/14/232151 [facility] [id number] Interpreted by: CAMERON GUILLAUME MD Electronically signed by: Departure Impression Primary Impression: COPD exacerbation Disposition: 01 HOME, SELF-CARE Condition: Stable Departure-Patient Inst. Decision time for Depature: 22:50 Referrals: BILLY MARAVILLA MD (PCP) Primary Care Physician Patient Instructions: COPD Exacerbation, Adult ED Add. Discharge Instructions: Take the hand written prescription to a durable medical equipment facility to get a nebulizer. If there are any issues with this, please call your regular doctor to get you a nebulizer. A prescription was sent to your pharmacy for DuoNeb as well which is the medicine that will go into it. Please follow-up with your regular doctor if you are not seeing improvement. Scripts Ipratropium/Albuterol Sulfate (Iprat-Albut 0.5-3(2.5) mg/3 ml) 0.5 Mg-3 Mg (2.5 Mg Base)/3 Ml Ampul.neb 3 ML IH Q4H PRN for SHORTNESS OF BREATH for 30 Days, #120 EACH Prov: DESTINEY MENDOZA MD 02/14/23 DESTINEY MENDOZA MD Feb 14, 2023 21:40
[2023-02-14] MEDS ORDERED: RT-ALBUTEROL/IPRATROPIUM 3 ML (DUONEB) VIAL INH ONE (21:45)
[2023-02-14 21:50] LABS: BASOPHILS % (AUTO) 0 % (0-10); EOSINOPHILS # (AUTO) 0.2 10^3/uL (0.0-0.3); EOSINOPHILS % (AUTO) 3 % (0-10); HEMATOCRIT 32 % (35-52); HEMOGLOBIN 10.2 g/dL (11.5-16.0); LYMPHOCYTES # (AUTO) 2.2 10^3/uL (1.0-4.0); LYMPHOCYTES % (AUTO) 31 % (12-44); MEAN CORPUSCULAR HEMOGLOBIN 28 pg (25-34); MEAN CORPUSCULAR HGB CONC 32 g/dL (32-36); MEAN CORPUSCULAR VOLUME 88 fL (80-99); MEAN PLATELET VOLUME 9.4 fL (9.0-12.2); MONOCYTES # (AUTO) 0.5 10^3/uL (0.0-1.0); MONOCYTES % (AUTO) 7 % (0-12); NEUTROPHILS # (AUTO) 4.1 10^3/uL (1.8-7.8); NEUTROPHILS % (AUTO) 58 % (42-75); PLATELET COUNT 290 10^3/uL (130-400)
--- NOTE | 2023-02-14 21:53 | Diagnostic Imaging Report ---
INDICATION: 77-year-old female with shortness of breath. COMPARISONS: 02/07/2023 FINDINGS: Single view chest shows normal heart, pleura and diaphragms. No consolidations are seen. There is background chronic parenchymal changes present. There is no effusion or pneumothorax. There is aortic calcific atherosclerosis. IMPRESSION: Some chronic parenchymal changes as well as some aortic calcifications, otherwise no acute cardiopulmonary disease. Dictated by: Dictated on workstation # [id number]
[2023-02-14] MEDS ORDERED: dexAMETHasone 6 MG TAB (DECADRON) PO STA (22:00)
[2023-02-14 22:33] LABS: ALANINE AMINOTRANSFERASE 6 U/L (0-55); ALBUMIN 3.7 GM/DL (3.2-4.5); ALKALINE PHOSPHATASE 80 U/L (40-136); BILIRUBIN,TOTAL 0.3 MG/DL (0.1-1.0); BUN/CREATININE RATIO 16; CALCIUM 9.2 MG/DL (8.5-10.1); CARBON DIOXIDE 21 MMOL/L (21-32); CHLORIDE 110 MMOL/L (98-107); CREATININE SERUM 1.23 MG/DL (0.60-1.30); GFR ESTIMATED 46; GLUCOSE 102 MG/DL (70-105); POTASSIUM 3.8 MMOL/L (3.6-5.0); SODIUM 142 MMOL/L (135-145); TOTAL PROTEIN 6.8 GM/DL (6.4-8.2)
[2023-02-14] MEDS ORDERED: IPRA3AMP31 IH (22:45)
[2023-02-14 22:50] VITALS: BP 146/51
== END 2023-02-14 22:50 | disposition home or self-care (01) ==
LOC: EDUNIT# 21:14 → ER 21:15
DX: J44.9 Chronic obstructive pulmonary disease, unspecified (principal); I48.91 Unspecified atrial fibrillation; F17.210 Nicotine dependence, cigarettes, uncomplicated; Z79.01 Long term (current) use of anticoagulants; Z28.310 Unvaccinated for COVID-19
CPT/HCPCS: 36415; 71045; 80053; 83880; 84484; 85025; 93005

== ENCOUNTER 2023-02-28 15:20 | Emergency (ER) | payer MEDICARE, MEDICAID ==
[~2023-02-28 15:20] MED LIST changes: +IPRA3AMP31 IH
[2023-02-28] MEDS ORDERED: HYDROcodone/ACETAMINOPHEN 5 MG/325 MG TABLET PO ONE (15:30)
--- NOTE | 2023-02-28 15:44 | ED Back Pain ---
General Chief Complaint: Back Problems Stated Complaint: BACK PAIN Nursing Triage Note: PT TO RM 6 BY WC WITH C/O L UPPER BACK PAIN THAT HAS GONE ON FOR 1 MONTH. PT STATES THE LAST MONTH THE PAIN HAS INCREASED WITH MOVEMENT Source of Information: Patient Exam Limitations: No Limitations (DESTINEY TRUJILLO) History of Present Illness Date Seen by Provider: Feb 28, 2023 Time Seen by Provider: 15:42 Initial Comments Patient is a 77-year-old female presents ED with left mid to lower back pain. She states she has had back pain intermittently over the past several years. She states this pain has increased over the past month. She typically uses Biofreeze which does improve the symptoms at times. She was prescribed Tylenol Extra Strength without much improvement. She states Tylenol does not work. She states pain only occurs with movement. Sharp pain that radiates down into the lower back. She denies of any dysuria, hematuria, increased urine frequency, vomiting, chest pain, shortness of breath with this pain. She states she is scheduled [facility] to see if they can help. She has no thoracic or lumbar midline tenderness. Denies of any bowel or urine incontinence or saddle paresthesia, lower extremity weakness or sensory changes (DESTINEY TRUJILLO) Allergies and Home Medications Allergies Coded Allergies: cyclobenzaprine (Verified Allergy, Unknown, 06/05/22) Patient Home Medication List Home Medication List Reviewed: Yes (DESTINEY TRUJILLO) Acetaminophen (Acetaminophen) 325 Mg Tablet, 650 MG PO Q8H PRN for PAIN-MILD (1- 4) Prescribed by: ROSEANN LARA on 07/26/22 1006 Alprazolam (Alprazolam) 0.5 Mg Tablet, 0.5 MG PO Q6H PRN for ANXIETY Prescribed by: ROSEANN LARA on 07/26/22 1007 Amlodipine Besylate (Amlodipine Besylate) 5 Mg Tablet, 5 MG PO DAILY Prescribed by: ROSEANN LARA on 07/26/22 1006 Bupropion HCl (Bupropion Xl) 150 Mg Tab.er.24h, 150 MG PO DAILY Prescribed by: ROSEANN LARA on 07/26/22 1006 Diltiazem HCl (Diltiazem ER) 360 Mg Capsule.er, 360 MG PO DAILY Prescribed by: ROSEANN LARA on 07/26/22 1006 Gabapentin (Neurontin) 300 Mg Capsule, 600 MG PO DAILY Prescribed by: ROSEANN LARA on 07/26/22 1006 Gabapentin (Neurontin) 300 Mg Capsule, 300 MG PO 1200,2000 Prescribed by: ROSEANN LARA on 07/26/22 1006 Hydrocodone/Acetaminophen (Hydrocodone-Acetamin 7.5-325) 7.5 Mg-325 Mg Tablet, 1 EACH PO Q6H PRN for PAIN-BREAKTHROUGH Prescribed by: EMMETT DIAZ on 01/07/23 1541 Hydrocodone/Acetaminophen (Hydrocodone-Acetamin 5-325 mg) 5 Mg-325 Mg Tablet, 1 TAB PO Q4H PRN for PAIN-MODERATE (5-7) Prescribed by: CANDIDO SHOOK on 02/28/23 1617 Ipratropium/Albuterol Sulfate (Iprat-Albut 0.5-3(2.5) mg/3 ml) 0.5 Mg-3 Mg (2.5 Mg Base)/3 Ml Ampul.neb, 3 ML IH Q4H PRN for SHORTNESS OF BREATH Prescribed by: DESTINEY MENDOZA on 02/14/23 2245 Oxycodone Hcl (Oxyir Tablet) 5 Mg Tab, 5 MG PO Q6H PRN for PAIN-SEVERE (8-10) Prescribed by: BILLY MARAVILLA MD on 08/12/22 1017 Pantoprazole Sodium (Pantoprazole Sodium) 40 Mg Tablet.dr, 40 MG PO DAILY Prescribed by: ROSEANN LARA on 07/26/22 1006 Potassium Chloride (Klor-Con M20) 20 Meq Tab.er.prt, 10 MEQ PO DAILY@0700 Prescribed by: ROSEANN LARA on 07/26/22 1006 Rivaroxaban (Xarelto Tablet) 15 Mg Tablet, 15 MG PO DAILY@0800 Prescribed by: ROSEANN LARA on 07/26/22 1006 Review of Systems Constitutional: No chills, No diaphoresis, No malaise, No weakness EENTM: No ear pain, No blurred vision, No hoarseness, No mouth pain Respiratory: No cough Cardiovascular: No chest pain Gastrointestinal: No abdominal pain, No diarrhea, No nausea, No vomiting Genitourinary: No decreased output, No discharge Musculoskeletal: back pain; No joint pain Skin: No change in color, No change in hair/nails (DESTINEY TRUJILLO) All Other Systems Reviewed Negative Unless Noted: Yes (DESTINEY TRUJILLO) Past Wzlyxhg-Psqjqb-Tkgmmz Hx Patient Social History Tobacco Use?: No Use of E-Cig and/or Vaping dev: No Substance use?: No Alcohol Use?: No Pt feels they are or have been: No (DESTINEY TRUJILLO) Immunizations Up To Date Tetanus Booster (TDap): Unknown First/Initial COVID19 Vaccinat: unk Second COVID19 Vaccination [place]: unk Third COVID19 Vaccination Date: unk (DESTINEY TRUJILLO) Seasonal Allergies Seasonal Allergies: No (DESTINEY TRUJILLO) Past Medical History Surgery/Hospitalization HX: COPD, anxiety, depression, afib hip surgeries Surgeries: Yes (BILAT TKA, ULNER NERVE REPAIRS BILAT, RIGHT SHOULDER ROTATOR CUFF REPAIR) Orthopedic Respiratory: Yes Sleep Apnea, COPD Currently Using CPAP: No Currently Using BIPAP: No Cardiac: Yes (A-FIB/FLUTTER - CARDIOVERSION 3 MONTHS AGO) Atrial Fibrillation, High Cholesterol, Hypertension, Irregular Heartbeat Neurological: No Genitourinary: No Gastrointestinal: No Musculoskeletal: Yes Arthritis Endocrine: Yes (BORDERLINE - DIET CONTROLLED ) HEENT: Yes Cataract Cancer: No Psychosocial: Yes Anxiety, Depression Integumentary: No (DESTINEY TRUJILLO) Family Medical History No Pertinent Family Hx (DESTINEY TRUJILLO) Physical Exam Vital Signs Vital Signs - First Documented 02/28/23 15:24 Temp 36.8 Pulse 64 Resp 25 B/P (MAP) 106/70 (82) Pulse Ox 97 O2 Delivery Room Air (BECKY DICKERSON MD) Vital Signs Capillary Refill : (DESTINEY TRUJILLO) Height, Weight, BMI Height: '" Weight: lbs. oz. kg; 29.00 BMI Method: General Appearance: No Apparent Distress, WD/WN HEENT: PERRL/EOMI, TMs Normal, Normal ENT Inspection, Pharynx Normal Neck: Full Range of Motion, Normal Inspection, Non Tender, Supple Cardiovascular: Regular Rate, Rhythm, No Edema, No Gallop, No JVD, No Murmur Respiratory: Chest Non Tender, Lungs Clear, Normal Breath Sounds, No Accessory Muscle Use, No Respiratory Distress Gastrointestinal: Normal Bowel Sounds, No Organomegaly, No Pulsatile Mass Genital/Rectal: Normal Genital Exam, Normal Rectal Exam Back: Other (Left thoracic paraspinal muscle tenderness. 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 Skin: Normal Color, Warm/Dry (DESTINEY TRUJILLO) Progress/Results/Core Measures Results/Orders Lab Results Laboratory Tests Test 02/28/23 15:42 Range/Units Urine Color YELLOW Urine Clarity CLEAR Urine pH 5.5 5-9 Urine Specific [place] 1.015 L 1.016-1.022 Urine Protein NEGATIVE NEGATIVE Urine Glucose (UA) NEGATIVE NEGATIVE Urine Ketones NEGATIVE NEGATIVE Urine Nitrite NEGATIVE NEGATIVE Urine Bilirubin NEGATIVE NEGATIVE Urine Urobilinogen 0.2 < = 1.0 MG/DL Urine Leukocyte Esterase TRACE H NEGATIVE Urine RBC (Auto) NEGATIVE NEGATIVE Urine RBC NONE /HPF Urine WBC 2-5 /HPF Urine Squamous Epithelial Cells 2-5 /HPF Urine Crystals NONE /LPF Urine Bacteria TRACE /HPF Urine Casts PRESENT /LPF Urine Hyaline Casts 10-25 H /LPF Urine Mucus SMALL H /LPF Urine Culture Indicated YES (BECKY DICKERSON MD) Vital Signs/I&O 02/28/23 02/28/23 15:24 16:32 Temp 36.8 36.8 Pulse 64 64 Resp 25 25 B/P (MAP) 106/70 (82) 106/70 Pulse Ox 97 97 O2 Delivery Room Air Room Air (BECKY DICKERSON MD) Blood Pressure Mean: 82 Departure Communication (PCP) Patient is a 77-year-old female who presents ED with left-sided thoracic back pain. History of similar type pain in the past. She states this is chronic. This occurs with movement. Very minimal tenderness. No specific urinary symptoms. Denies chest pain or shortness of breath. Patient uses Biofreeze and states this somewhat helps. Has been taken Tylenol Extra Strength with no improvement. Patient appears in no acute respiratory distress. Vital signs stable. Patient was given Norflex and hydrocodone with near resolution of pain. She states she is scheduled to follow-up with for [facility] orthopedic early February. No neurological red flag findings. No current chest pain or shortness of breath. Patient requesting leave. I did obtain a urinalysis without strong evidence of infection. She is on a diuretic for lower leg swelling. Culture pending as it did note some mild leukocytes without strong evidence of UTI.. Patient Was not treated. Will discharge few days worth of breakthrough pain medication. Continue with Biofreeze. Return precaution were discussed (DESTINEY TRUJILLO) Impression Primary Impression: Strain of thoracic region Disposition: HOME, SELF-CARE Condition: Stable Departure-Patient Inst. Decision time for Depature: 16:16 (DESTINEY TRUJILLO) Referrals: DEMETRIUS WEBSTER DO (PCP/Family) Primary Care Physician Patient Instructions: Back Muscle Strain (DC) Add. Discharge Instructions: Follow-up with your primary care physician for further evaluation. All discharge instructions reviewed with patient and/or family. Voiced understanding. Scripts Hydrocodone/Acetaminophen (Hydrocodone-Acetamin 5-325 mg) 5 Mg-325 Mg Tablet 1 TAB PO Q4H PRN for PAIN-MODERATE (5-7), #6 TAB Prov: DESTINEY TRUJILLO 02/28/23 ATTENDING PHYSICIAN NOTE: I was physically present as attending physician in the emergency department during the care of this patient, but I was not directly involved in the decision making or delivery of care for this patient. (BECKY DICKERSON MD) DESTINEY TRUJILLO Feb 28, 2023 15:44 BECKY DICKERSON MD Mar 01, 2023 12:04
[2023-02-28] MEDS ORDERED: ORPHENADRINE 60 MG/2 ML (NORFLEX) AMP (ED ONLY) IM ONE (15:45)
[2023-02-28 15:50] LABS: BILIRUBIN,URINE NEGATIVE (NEGATIVE); CLARITY,URINE CLEAR; COLOR,URINE YELLOW; GLUCOSE, URINE (UA) NEGATIVE (NEGATIVE); KETONES,URINE NEGATIVE (NEGATIVE); LEUKOCYTE ESTERASE ,URINE TRACE (NEGATIVE); NITRITE,URINE NEGATIVE (NEGATIVE); PH,URINE 5.5 (5-9); PROTEIN,URINE NEGATIVE (NEGATIVE)
[2023-02-28 15:59] LABS: BACTERIA,URINE TRACE /HPF
[2023-02-28] MEDS ORDERED: ACHD5005 PO (16:17)
[2023-02-28 16:32] VITALS: BP 106/70
== END 2023-02-28 16:32 | disposition home or self-care (01) ==
LOC: EDUNIT# 15:20 → ER 15:21
DX: S29.012A Strain of muscle and tendon of back wall of thorax, initial encounter (principal); M79.89 Other specified soft tissue disorders; D72.829 Elevated white blood cell count, unspecified; G89.29 Other chronic pain; X58.XXXA Exposure to other specified factors, initial encounter
CPT/HCPCS: 81000; 87077; 87088; 87186; 96372; 99284

== ENCOUNTER 2023-03-02 08:20 | Emergency (ER) | payer MEDICARE, MEDICAID ==
[~2023-03-02] VITALS: Ht 162 cm; Wt 86.0 kg
[~2023-03-02 08:20] MED LIST changes: +ACHD5005 PO
[2023-03-02] MEDS ORDERED: TIZA4CAP PO (08:45)
[2023-03-02] MEDS ORDERED: ORPHENADRINE 60 MG/2 ML (NORFLEX) AMP (ED ONLY) IM ONE (08:45)
--- NOTE | 2023-03-02 08:46 | ED Back Pain ---
General Chief Complaint: Upper Extremity Stated Complaint: LT SIDE BACK PAIN | Source of Information: Patient Exam Limitations: No Limitations History of Present Illness Date Seen by Provider: Mar 02, 2023 Time Seen by Provider: 08:30 Initial Comments 77-year-old female presents to the emergency department today for left parascapular pain. She was seen here on 02/28 for the same. She tells me this is chronic pain, has been there for several years but has progressively worsened. It used to be there for about a day at a time, gradually increasing in duration and frequency. She tells me if she sits still and does not do anything or move then the pain is minimal if not absent however if she moves at all the pain is "excruciating." She states she used to go to her primary doctor and get a shot which helped for a couple of days. On 02/28 she was given hydrocodone and a muscle relaxer, and states this is only helping for a couple of hours. She has an appointment on 03/10 with the orthopedic surgeon and the appointment with the [facility] clinic tomorrow for further discussion of her current symptoms. Denies any associated symptoms. No injuries. All other systems reviewed and negative except documented per HPI. Voice recognition software was used to help create this chart Allergies and Home Medications Allergies Coded Allergies: cyclobenzaprine (Verified Allergy, Unknown, 06/05/22) Patient Home Medication List Home Medication List Reviewed: Yes Acetaminophen (Acetaminophen) 325 Mg Tablet, 650 MG PO Q8H PRN for PAIN-MILD (1- 4) Prescribed by: ROSEANN LARA on 07/26/22 100 Alprazolam (Alprazolam) 0.5 Mg Tablet, 0.5 MG PO Q6H PRN for ANXIETY Prescribed by: ROSEANN LARA on 07/26/22 1007 Amlodipine Besylate (Amlodipine Besylate) 5 Mg Tablet, 5 MG PO DAILY Prescribed by: ROSEANN LARA on 07/26/22 1006 Bupropion HCl (Bupropion Xl) 150 Mg Tab.er.24h, 150 MG PO DAILY Prescribed by: ROSEANN LARA on 07/26/22 1006 Diltiazem HCl (Diltiazem ER) 360 Mg Capsule.er, 360 MG PO DAILY Prescribed by: ROSEANN LARA on 07/26/22 1006 Gabapentin (Neurontin) 300 Mg Capsule, 600 MG PO DAILY Prescribed by: ROSEANN LARA on 07/26/22 1006 Gabapentin (Neurontin) 300 Mg Capsule, 300 MG PO 1200,2000 Prescribed by: ROSEANN LARA on 07/26/22 1006 Hydrocodone/Acetaminophen (Hydrocodone-Acetamin 7.5-325) 7.5 Mg-325 Mg Tablet, 1 EACH PO Q6H PRN for PAIN-BREAKTHROUGH Prescribed by: EMMETT DAIZ on 01/07/23 1541 Hydrocodone/Acetaminophen (Hydrocodone-Acetamin 5-325 mg) 5 Mg-325 Mg Tablet, 1 TAB PO Q4H PRN for PAIN-MODERATE (5-7) Prescribed by: CANDIDO SHOOK on 02/28/23 1617 Ipratropium/Albuterol Sulfate (Iprat-Albut 0.5-3(2.5) mg/3 ml) 0.5 Mg-3 Mg (2.5 Mg Base)/3 Ml Ampul.neb, 3 ML IH Q4H PRN for SHORTNESS OF BREATH Prescribed by: DESTINEY MENDOZA on 02/14/23 2245 Oxycodone Hcl (Oxyir Tablet) 5 Mg Tab, 5 MG PO Q6H PRN for PAIN-SEVERE (8-10) Prescribed by: BILLY MARAVILLA MD on 08/12/22 1017 Pantoprazole Sodium (Pantoprazole Sodium) 40 Mg Tablet.dr, 40 MG PO DAILY Prescribed by: ROSEANN LARA on 07/26/22 1006 Potassium Chloride (Klor-Con M20) 20 Meq Tab.er.prt, 10 MEQ PO DAILY@0700 Prescribed by: ROSEANN LARA on 07/26/22 1006 Rivaroxaban (Xarelto Tablet) 15 Mg Tablet, 15 MG PO DAILY@0800 Prescribed by: ROSEANN LARA on 07/26/22 1006 Review of Systems Constitutional: see HPI Past Hjdyrvg-Jnwqtx-Ecvjgs Hx Patient Social History Tobacco Use?: No Use of E-Cig and/or Vaping dev: No Substance use?: No Alcohol Use?: No Immunizations Up To Date Tetanus Booster (TDap): Unknown First/Initial COVID19 Vaccinat: unk Second COVID19 Vaccination [place]: unk Third COVID19 Vaccination Date: unk Seasonal Allergies Seasonal Allergies: No Past Medical History Surgery/Hospitalization HX: COPD, anxiety, depression, afib hip surgeries Surgeries: Yes (BILAT TKA, ULNER NERVE REPAIRS BILAT, RIGHT SHOULDER ROTATOR CUFF REPAIR) Orthopedic Respiratory: Yes Sleep Apnea, COPD Currently Using CPAP: No Currently Using BIPAP: No Cardiac: Yes (A-FIB/FLUTTER - CARDIOVERSION 3 MONTHS AGO) Atrial Fibrillation, High Cholesterol, Hypertension, Irregular Heartbeat Neurological: No Genitourinary: No Gastrointestinal: No Musculoskeletal: Yes Arthritis Endocrine: Yes (BORDERLINE - DIET CONTROLLED ) HEENT: Yes Cataract Cancer: No Psychosocial: Yes Anxiety, Depression Integumentary: No Family Medical History No Pertinent Family Hx Physical Exam Vital Signs Capillary Refill : Height, Weight, BMI Height: '" Weight: lbs. oz. kg; 29.00 BMI Method: General Appearance: No Apparent Distress, WD/WN HEENT: Normal ENT Inspection, Pharynx Normal Neck: Full Range of Motion, Normal Inspection, Non Tender, Supple Cardiovascular: Regular Rate, Rhythm, No Murmur, Normal Peripheral Pulses Respiratory: Chest Non Tender, Lungs Clear, Normal Breath Sounds, No Accessory Muscle Use, No Respiratory Distress Gastrointestinal: Normal Bowel Sounds, No Organomegaly, Non Tender, Soft Back: Other (Tenderness palpation just medial to the left scapular border. There is a trigger point this area that causes immediate pain when palpated. No skin changes) Extremity: Normal Capillary Refill, Normal Inspection, Normal Range of Motion, Non Tender, No Calf Tenderness Neurologic/Psychiatric: Alert, Oriented x3 Skin: Normal Color, Warm/Dry Progress/Results/Core Measures Results/Orders My Orders Orders - OSWALDO KRAFT DO Orphenadrine Inj (Ed Only) (Norflex Inje (03/02/23 08:45) Departure Communication (Admissions) Patient is hemodynamically stable. She had a full work-up for the same pain on 02/28 including labs, chest x-ray all of which were relatively unremarkable showing no emergent cause of her current symptoms. Completely hemodynamically stable with normal lung and cardiac exam and no symptoms that could be attributed to pulmonary cardiac pathology Impression Primary Impression: Chronic periscapular pain on left side Disposition: 01 HOME, SELF-CARE Condition: Stable Departure-Patient Inst. Referrals: DEMETRIUS WEBSTER DO (PCP/Family) Primary Care Physician Patient Instructions: Shoulder Pain ED Add. Discharge Instructions: Please take the muscle relaxers as prescribed as needed. Use ibuprofen and Tylenol in addition for her pain. I do not think that narcotic pain medication is the answer for your more chronic pain and you will need to follow-up with your primary doctor, post closing specialist for further evaluation and treatment recommendations. Return to the emergency department for any severe concerns. All discharge instructions reviewed with patient and/or family. Voiced understanding. Scripts Tizanidine HCl (Zanaflex) 4 Mg Capsule 4 MG PO TID for Muscle Spasms for 5 Days, #15 CAP Prov: OSWALDO KRAFT DO 03/02/23 OSWALDO KRAFT DO Mar 02, 2023 08:46
[2023-03-02 09:09] VITALS: BP 134/55
[2023-03-04] MEDS ORDERED: CEPH500C PO (08:37)
== END 2023-03-02 09:20 | disposition home or self-care (01) ==
LOC: EDUNIT# 08:20 → ER 08:22
DX: M54.6 Pain in thoracic spine (principal); G89.29 Other chronic pain; Z88.8 Allergy status to other drugs, medicaments and biological substances
CPT/HCPCS: 96372; 99284

== ENCOUNTER → 2023-03-30 | Outpatient (RCR) | payer MEDICARE, MEDICAID ==
[~2023-03-30] MED LIST changes: +CEPH500C PO; +TIZA4CAP PO
== END | disposition home or self-care (01) ==
PROVIDERS: ATTEND Pediatrics
DX: Z47.1 Aftercare following joint replacement surgery (principal); Z96.641 Presence of right artificial hip joint

== ENCOUNTER 2023-04-08 19:01 | Emergency (ER) | payer MEDICARE, MEDICAID ==
[~2023-04-08] VITALS: Ht 163 cm; Wt 86.0 kg
[2023-04-08 19:23] LABS: BASOPHILS % (AUTO) 1 % (0-10); EOSINOPHILS # (AUTO) 0.2 10^3/uL (0.0-0.3); EOSINOPHILS % (AUTO) 2 % (0-10); HEMATOCRIT 37 % (35-52); HEMOGLOBIN 11.3 g/dL (11.5-16.0); LYMPHOCYTES # (AUTO) 2.5 10^3/uL (1.0-4.0); LYMPHOCYTES % (AUTO) 30 % (12-44); MEAN CORPUSCULAR HEMOGLOBIN 28 pg (25-34); MEAN CORPUSCULAR HGB CONC 31 g/dL (32-36); MEAN CORPUSCULAR VOLUME 89 fL (80-99); MEAN PLATELET VOLUME 9.4 fL (9.0-12.2); MONOCYTES # (AUTO) 0.6 10^3/uL (0.0-1.0); MONOCYTES % (AUTO) 8 % (0-12); NEUTROPHILS # (AUTO) 5.1 10^3/uL (1.8-7.8); NEUTROPHILS % (AUTO) 61 % (42-75); PLATELET COUNT 284 10^3/uL (130-400); WHITE BLOOD COUNT 8.4 10^3/uL (4.3-11.0)
--- NOTE | 2023-04-08 19:35 | Diagnostic Imaging Report ---
INDICATION: Shortness of breath. COMPARISON: 02/14/2023. FINDINGS: The lungs appear clear without focal airspace opacities or consolidation. There are no findings of an effusion. There is no evidence of a pneumothorax. Heart size and mediastinal contours appear appropriate. Pulmonary vascularity appears within normal limits. There is no acute or suspicious osseous abnormality demonstrated. IMPRESSION: Stable chest. No radiographic evidence of an acute cardiopulmonary process. Dictated by: Dictated on workstation # [id number]
[2023-04-08 19:37] LABS: INR 1.2 (0.8-1.4); PROTHROMBIN TIME PATIENT 15.3 SEC (12.2-14.7)
[2023-04-08 19:40] LABS: FIBRIN DEGRADATION PRODUCTS 0.42 UG/ML (0.00-0.49)
--- NOTE | 2023-04-08 19:42 | ED General ---
General Chief Complaint: Respiratory Problems Stated Complaint: SOA Nursing Triage Note: pt states she has had trouble breathing for a long time, worse the past few days. also states pain behind her left leg that happens when she has trouble breathing and also states severe back pain Source of Information: Patient History of Present Illness Date Seen by Provider: Apr 08, 2023 Allergies and Home Medications Allergies Coded Allergies: cyclobenzaprine (Verified Allergy, Unknown, 06/05/22) Patient Home Medication List Acetaminophen (Acetaminophen) 325 Mg Tablet, 650 MG PO Q8H PRN for PAIN-MILD (1- 4) Prescribed by: ROSEANN LARA on 07/26/22 1006 Alprazolam (Alprazolam) 0.5 Mg Tablet, 0.5 MG PO Q6H PRN for ANXIETY Prescribed by: ROSEANN LARA on 07/26/22 1007 Amlodipine Besylate (Amlodipine Besylate) 5 Mg Tablet, 5 MG PO DAILY Prescribed by: ROSEANN LARA on 07/26/22 1006 Bupropion HCl (Bupropion Xl) 150 Mg Tab.er.24h, 150 MG PO DAILY Prescribed by: ROSEANN LARA on 07/26/22 1006 Cephalexin (Cephalexin) 500 Mg Capsule, 500 MG PO TID Prescribed by: MAMIE GEE on 03/04/23 0837 Diltiazem HCl (Diltiazem ER) 360 Mg Capsule.er, 360 MG PO DAILY Prescribed by: ROSEANN LARA on 07/26/22 1006 Gabapentin (Neurontin) 300 Mg Capsule, 600 MG PO DAILY Prescribed by: ROSEANN LARA on 07/26/22 1006 Gabapentin (Neurontin) 300 Mg Capsule, 300 MG PO 1200,1999 Prescribed by: ROSEANN LARA on 07/26/22 1006 Hydrocodone/Acetaminophen (Hydrocodone-Acetamin 7.5-325) 7.5 Mg-325 Mg Tablet, 1 EACH PO Q6H PRN for PAIN-BREAKTHROUGH Prescribed by: EMMETT DIAZ on 01/07/23 1541 Hydrocodone/Acetaminophen (Hydrocodone-Acetamin 5-325 mg) 5 Mg-325 Mg Tablet, 1 TAB PO Q4H PRN for PAIN-MODERATE (5-7) Prescribed by: CANDIDO SHOOK on 02/28/23 1617 Ipratropium/Albuterol Sulfate (Iprat-Albut 0.5-3(2.5) mg/3 ml) 0.5 Mg-3 Mg (2.5 Mg Base)/3 Ml Ampul.neb, 3 ML IH Q4H PRN for SHORTNESS OF BREATH Prescribed by: DESTINEY MENDOZA on 02/14/23 2245 Oxycodone Hcl (Oxyir Tablet) 5 Mg Tab, 5 MG PO Q6H PRN for PAIN-SEVERE (8-10) Prescribed by: BILLY MARAVILLA MD on 08/12/22 1017 Pantoprazole Sodium (Pantoprazole Sodium) 40 Mg Tablet.dr, 40 MG PO DAILY Prescribed by: ROSEANN LARA on 07/26/22 1006 Potassium Chloride (Klor-Con M20) 20 Meq Tab.er.prt, 10 MEQ PO DAILY@0700 Prescribed by: ROSEANN LARA on 07/26/22 1006 Rivaroxaban (Xarelto Tablet) 15 Mg Tablet, 15 MG PO DAILY@0800 Prescribed by: ROSEANN LARA on 07/26/22 1006 Tizanidine HCl (Zanaflex) 4 Mg Capsule, 4 MG PO TID Prescribed by: OSWALDO KRAFT MD on 03/02/23 0845 Past [place]-Zbixht-Ptblqj Hx Patient Social History Tobacco Use?: Yes Tobacco type used: Cigarettes Smoking Status: Current Everyday Smoker Substance use?: No Alcohol Use?: No Immunizations Up To Date Tetanus Booster (TDap): Unknown First/Initial COVID19 Vaccinat: unk Second COVID19 Vaccination [place]: unk Third COVID19 Vaccination Date: unk Seasonal Allergies Seasonal Allergies: No Past Medical History Surgery/Hospitalization HX: COPD, anxiety, depression, afib hip surgeries Surgeries: Yes (BILAT TKA, ULNER NERVE REPAIRS BILAT, RIGHT SHOULDER ROTATOR CUFF REPAIR) Orthopedic Respiratory: Yes Sleep Apnea, COPD Currently Using CPAP: No Currently Using BIPAP: No Cardiac: Yes (A-FIB/FLUTTER - CARDIOVERSION 3 MONTHS AGO) Atrial Fibrillation, High Cholesterol, Hypertension, Irregular Heartbeat Neurological: No Genitourinary: No Gastrointestinal: No Musculoskeletal: Yes Arthritis Endocrine: Yes (BORDERLINE - DIET CONTROLLED ) HEENT: Yes Cataract Cancer: No Psychosocial: Yes Anxiety, Depression Integumentary: No Family Medical History No Pertinent Family Hx Physical Exam Vital Signs Vital Signs - First Documented 04/08/23 19:07 Temp 36.6 Pulse 61 Resp 26 B/P (MAP) 146/53 (84) Pulse Ox 97 Capillary Refill : Height, Weight, BMI Height: '" Weight: lbs. oz. kg; 32.00 BMI Method: Focused Exam Lactate Level 04/08/23 19:27: Lactic Acid Level 2.04*H Lactic Acid Level Laboratory Tests Test 04/08/23 19:27 Lactic Acid Level 2.04 MMOL/L (0.50-2.00) *H Progress/Results/Core Measures Suspected Sepsis SIRS Temperature: Pulse: 61 Respiratory Rate: 26 Laboratory Tests 04/08/23 19:12: White Blood Count 8.4 Blood Pressure 146 /53 Mean: 84 04/08/23 19:27: Lactic Acid Level 2.04*H Laboratory Tests 04/08/23 19:12: Creatinine 1.39H, INR Comment 1.2, Platelet Count 284, Total Bilirubin 0.4 Results/Orders Lab Results Laboratory Tests Test 04/08/23 19:12 04/08/23 19:15 04/08/23 19:27 04/08/23 20:27 Range/Units White Blood Count 8.4 4.3-11.0 10^3/uL Red Blood Count 4.11 3.80-5.11 10^6/uL Hemoglobin 11.3 L 11.5-16.0 g/dL Hematocrit 37 35-52 % Mean Corpuscular Volume 89 80-99 fL Mean Corpuscular Hemoglobin 28 25-34 pg Mean Corpuscular Hemoglobin Concent 31 L 32-36 g/dL Red Cell Distribution Width 13.4 10.0-14.5 % Platelet Count 284 130-400 10^3/uL Mean Platelet Volume 9.4 9.0-12.2 fL Immature Granulocyte % (Auto) 0 % Neutrophils (%) (Auto) 61 42-75 % Lymphocytes (%) (Auto) 30 12-44 % Monocytes (%) (Auto) 8 0-12 % Eosinophils (%) (Auto) 2 0-10 % Basophils (%) (Auto) 1 0-10 % Neutrophils # (Auto) 5.1 1.8-7.8 10^3/uL Lymphocytes # (Auto) 2.5 1.0-4.0 10^3/uL Monocytes # (Auto) 0.6 0.0-1.0 10^3/uL Eosinophils # (Auto) 0.2 0.0-0.3 10^3/uL Basophils # (Auto) 0.0 0.0-0.1 10^3/uL Immature Granulocyte # (Auto) 0.0 0.0-0.1 10^3/uL Erythrocyte Sedimentation Rate 22 0-30 MM/HR Prothrombin Time 15.3 H 12.2-14.7 SEC INR Comment 1.2 0.8-1.4 Activated Partial Thromboplast Time 30 24-35 SEC D-Dimer 0.42 0.00-0.49 UG/ML Sodium Level 140 135-145 MMOL/L Potassium Level 4.3 3.6-5.0 MMOL/L Chloride Level 108 H 98-107 MMOL/L Carbon Dioxide Level 19 L 21-32 MMOL/L Anion Gap 13 5-14 MMOL/L Blood Urea Nitrogen 32 H 7-18 MG/DL Creatinine 1.39 H 0.60-1.30 MG/DL Estimat Glomerular Filtration Rate 40 BUN/Creatinine Ratio 23 Glucose Level 108 H 70-105 MG/DL Calcium Level 9.1 8.5-10.1 MG/DL Corrected Calcium 9.1 8.5-10.1 MG/DL Magnesium Level 1.6 1.6-2.4 MG/DL Total Bilirubin 0.4 0.1-1.0 MG/DL Aspartate Amino Transf (AST/SGOT) 18 5-34 U/L Alanine Aminotransferase (ALT/SGPT) 10 0-55 U/L Alkaline Phosphatase 103 40-136 U/L Total Creatine Kinase 114 29-168 U/L Creatine Kinase MB 2.3 <6.6 NG/ML Myoglobin 57.0 10.0-92.0 NG/ML Troponin I < 0.028 <0.028 NG/ML C-Reactive Protein High Sensitivity 0.39 0.00-0.50 MG/DL B-Type Natriuretic Peptide 410.1 H <100.0 PG/ML Total Protein 6.9 6.4-8.2 GM/DL Albumin 4.0 3.2-4.5 GM/DL Influenza Type A (RT-PCR) Not Detected Not Detecte Influenza Type B (RT-PCR) Not Detected Not Detecte SARS-CoV-2 RNA (RT-PCR) Not Detected Not Detecte Lactic Acid Level 2.04 *H 0.50-2.00 MMOL/L Urine Color YELLOW Urine Clarity CLEAR Urine pH 5.5 5-9 Urine Specific [place] 1.025 H 1.016-1.022 Urine Protein NEGATIVE NEGATIVE Urine Glucose (UA) NEGATIVE NEGATIVE Urine Ketones NEGATIVE NEGATIVE Urine Nitrite NEGATIVE NEGATIVE Urine Bilirubin NEGATIVE NEGATIVE Urine Urobilinogen 1.0 < = 1.0 MG/DL Urine Leukocyte Esterase TRACE H NEGATIVE Urine RBC (Auto) NEGATIVE NEGATIVE Urine RBC NONE /HPF Urine WBC 5-10 H /HPF Urine Squamous Epithelial Cells 10-25 H /HPF Urine Crystals NONE /LPF Urine Bacteria TRACE /HPF Urine Casts PRESENT /LPF Urine Hyaline Casts 5-10 H /LPF Urine Mucus MODERATE H /LPF Urine Culture Indicated YES Urine Opiates Screen NEGATIVE NEGATIVE Urine Oxycodone Screen NEGATIVE NEGATIVE Urine Methadone Screen NEGATIVE NEGATIVE Urine Propoxyphene Screen NEGATIVE NEGATIVE Urine Barbiturates Screen NEGATIVE NEGATIVE Ur Tricyclic Antidepressants Screen NEGATIVE NEGATIVE Urine Phencyclidine Screen NEGATIVE NEGATIVE Urine Amphetamines Screen NEGATIVE NEGATIVE Urine Methamphetamines Screen NEGATIVE NEGATIVE Urine Benzodiazepines Screen NEGATIVE NEGATIVE Urine Cocaine Screen NEGATIVE NEGATIVE Urine Cannabinoids Screen NEGATIVE NEGATIVE My Orders Orders - ELODIA ADDISON DO Ed Iv/Invasive Line Start (04/08/23 19:14) Ekg Tracing (04/08/23 19:14) O2 (04/08/23 19:14) Monitor-Rhythm Ecg Trace Only (04/08/23 19:14) Chest 1 View, Ap/Pa Only (04/08/23 19:14) Bnp Jammie (04/08/23 19:14) Cbc With Automated Diff (04/08/23 19:14) Comprehensive Metabolic Panel (04/08/23 19:14) Creatine Kinase (04/08/23 19:14) Creatine Kinase Mb (04/08/23 19:14) Hs C Reactive Protein (04/08/23 19:14) Fibrin Degradation Products (04/08/23 19:14) Lactic Acid Analyzer (04/08/23 19:14) Magnesium (04/08/23 19:14) Protime With Inr (04/08/23 19:14) Partial Thromboplastin Time (04/08/23 19:14) Blood Culture (04/08/23 19:14) Erythrocyte Sedimentation Rate (04/08/23 19:14) Myoglobin Serum (04/08/23 19:14) Troponin I Jammie (04/08/23 19:14) Covid 19 Inhouse Test (04/08/23 19:14) Influenza A And B By Pcr (04/08/23 19:14) Drug Screen Stat (Urine) (04/08/23 20:20) Ua Culture If Indicated (04/08/23 20:20) Urine Culture (04/08/23 20:27) Ed Iv/Invasive Line Start (04/08/23 21:07) Lactated Ringers 1,000 Ml (Lactated Ring (04/08/23 21:15) Ceftriaxone Iv/Im (Ceftriaxone Iv/Im) (04/08/23 21:07) Vital Signs/I&O 04/08/23 19:07 Temp 36.6 Pulse 61 Resp 26 B/P (MAP) 146/53 (84) Pulse Ox 97 Capillary Refill : Blood Pressure Mean: 84 Diagnostic Imaging Comments CXR--PER RADIOLOGIST REPORT AT 1942 COMPARISON: 02/14/2023. FINDINGS: The lungs appear clear without focal airspace opacities or consolidation. There are no findings of an effusion. There is no evidence of a pneumothorax. Heart size and mediastinal contours appear appropriate. Pulmonary vascularity appears within normal limits. There is no acute or suspicious osseous abnormality demonstrated. IMPRESSION: Stable chest. No radiographic evidence of an acute cardiopulmonary process. Reviewed: Reviewed by Me Departure Impression Primary Impression: UTI (urinary tract infection) Additional Impressions: Anxiety Chronic shortness of breath Chronic back pain Disposition: HOME, SELF-CARE Condition: Stable Departure-Patient Inst. Decision time for Depature: 21:18 Referrals: DEMETRIUS WEBSTER DO (PCP/Family) Primary Care Physician Patient Instructions: Anxiety, Adult ED, CHRONIC PAIN, Shortness of Breath, Adult ED, Urinary Tract Infection, Adult ED Add. Discharge Instructions: CONTINUE YOUR REGULAR MEDICATIONS PRESCRIBED FOLLOW UP WITH YOUR DR NEXT WEEK FOR FURTHER CARE All discharge instructions reviewed with patient and/or family. Voiced understanding. Scripts Cefdinir (Cefdinir) 300 Mg Capsule 300 MG PO BID, #20 CAP Prov: ELODIA ADDISON DO 04/08/23 ELODIA ADDISON DO Apr 08, 2023 19:42
[2023-04-08 19:44] LABS: ALANINE AMINOTRANSFERASE 10 U/L (0-55); ALKALINE PHOSPHATASE 103 U/L (40-136); BILIRUBIN,TOTAL 0.4 MG/DL (0.1-1.0); BUN/CREATININE RATIO 23; CALCIUM 9.1 MG/DL (8.5-10.1); CARBON DIOXIDE 19 MMOL/L (21-32); CREATINE KINASE 114 U/L (29-168); CREATININE SERUM 1.39 MG/DL (0.60-1.30); GFR ESTIMATED 40; GLUCOSE 108 MG/DL (70-105); MAGNESIUM 1.6 MG/DL (1.6-2.4); TOTAL PROTEIN 6.9 GM/DL (6.4-8.2)
[2023-04-08 19:51] LABS: CREATINE KINASE MB 2.3 NG/ML (<6.6)
[2023-04-08 20:00] LABS: ERYTHROCYTE SEDIMENTATION RATE 22 MM/HR (0-30)
[2023-04-08 20:14] LABS: CHLORIDE 108 MMOL/L (98-107); POTASSIUM 4.3 MMOL/L (3.6-5.0); SODIUM 140 MMOL/L (135-145)
[2023-04-08 20:55] LABS: AMPHETAMINE SCREEN, URINE NEGATIVE (NEGATIVE); BARBITURATE SCREEN URINE NEGATIVE (NEGATIVE); BENZODIAZEPINES SCREEN URINE NEGATIVE (NEGATIVE); CANNABINOID SCREEN, URINE NEGATIVE (NEGATIVE); COCAINE SCREEN URINE NEGATIVE (NEGATIVE); METHADONE STAT NEGATIVE (NEGATIVE); OPIATE SCREEN URINE NEGATIVE (NEGATIVE); OXYCODONE STAT NEGATIVE (NEGATIVE); PROPOXYPHENE STAT NEGATIVE (NEGATIVE); TRICYCLIC ANTIDEPRESSANTS SCRE NEGATIVE (NEGATIVE)
[2023-04-08 21:03] LABS: BILIRUBIN,URINE NEGATIVE (NEGATIVE); CLARITY,URINE CLEAR; COLOR,URINE YELLOW; GLUCOSE, URINE (UA) NEGATIVE (NEGATIVE); KETONES,URINE NEGATIVE (NEGATIVE); NITRITE,URINE NEGATIVE (NEGATIVE); PH,URINE 5.5 (5-9); PROTEIN,URINE NEGATIVE (NEGATIVE)
[2023-04-08 21:04] LABS: BACTERIA,URINE TRACE /HPF; LEUKOCYTE ESTERASE ,URINE TRACE (NEGATIVE)
[2023-04-08] MEDS ORDERED: cefTRIAXone IV/IM 1,000 MG in NS (IVPB) 50 ML 50 ML IV STA (21:07)
[2023-04-08] MEDS ORDERED: LACTATED RINGERS 1,000 ML 1,000 ML IV ONE (21:15)
[2023-04-08] MEDS ORDERED: CEFD300C3 PO (21:19)
[2023-04-08 21:56] VITALS: BP 147/62
== END 2023-04-08 22:04 | disposition home or self-care (01) ==
LOC: EDUNIT# 19:01 → ER 19:04
DX: R06.02 Shortness of breath (principal); M54.9 Dorsalgia, unspecified; G89.29 Other chronic pain; F41.9 Anxiety disorder, unspecified; N39.0 Urinary tract infection, site not specified; F17.210 Nicotine dependence, cigarettes, uncomplicated; Z20.822 Contact with and (suspected) exposure to COVID-19; Z28.310 Unvaccinated for COVID-19
CPT/HCPCS: 36415; 71045; 80053; 80306; 81000; 82550; 82553; 83605; 83735; 83874; 83880; 84484; 85025; 85379; 85610; 85652; 85730; 86141; 87040; 87088; 87636; 93005; 93041

== ENCOUNTER → 2023-05-15 | Outpatient (CLI) | payer MEDICARE ==
--- NOTE | 2023-05-15 15:49 | Diagnostic Imaging Report ---
PROCEDURE: MRI lumbar spine. TECHNIQUE: Multiplanar, multisequence MRI of the lumbar spine was performed without contrast. INDICATION: Back pain with sciatica. FINDINGS: The alignment of the lumbar spine is normal. The vertebral body heights are well-maintained. There is no spondylolysis or spondylolisthesis. No fractures are identified. The conus medullaris is seen at L1 and is normal in appearance. At T12-L1, there is mild facet disease. There is no spinal or neuroforaminal encroachment. At L1-L2, there is some annular bulging and facet disease. There is mild spinal stenosis. There is moderate right and mild left neuroforaminal encroachment. At L2-L3, there is annular bulging and facet disease. There is mild spinal stenosis. There is moderate right and mild left neuroforaminal encroachment. At L3-L4, there is annular bulging and facet disease. There is a small cyst projecting off the anterior medial right facet joint. There is mild to moderate spinal stenosis with encroachment upon the right lateral recess. There is moderate right and mild left neuroforaminal encroachment. At L4-L5, there is annular bulging, facet disease, and thickening of the ligamentum flavum. There is moderate spinal stenosis with encroachment on the lateral recess bilaterally and moderate bilateral neuroforaminal encroachment. At L5-S1, there is annular bulging, facet disease, and thickening of the ligamentum flavum. There is moderate spinal stenosis with encroachment on the lateral recess bilaterally. There is at least moderate bilateral neuroforaminal encroachment. The aorta is nonaneurysmal. The kidneys are normal. IMPRESSION: Diffuse lumbar spondylosis and multilevel degenerative disc disease as detailed above. Dictated by: Dictated on workstation # [id number]
--- NOTE | 2023-05-15 15:54 | Diagnostic Imaging Report ---
INDICATION: Chronic back pain. COMPARISON: None TECHNIQUE: Routine multiplanar multisequence noncontrast MR thoracic spine was performed. FINDINGS: Static alignment of the thoracic spine is maintained. There is no significant anteroretrolisthesis. There is no evidence of jumped facets. Vertebral body heights are maintained. There is no acute fracture. Evaluation of marrow signal demonstrates Modic type endplate changes greatest at T9-T10. There is also multilevel intervertebral disc height loss with multilevel anterior and posterior disc bulging and endplate osteophyte formations. These changes are also greatest at T9-T10 as well as T11-T12. Thoracic cord is normal in course and signal. There is no evidence of cord edema. No abnormal intrathecal filling defects are seen. Pre and paravertebral soft tissue structures are unremarkable. Note is made of moderate hiatal hernia. Axial images show mild broad-based posterior disc bulges at T9-T10 and T11-T12. This results in mild flattening of the anterior thecal sac, but no other significant spinal canal or neuroforaminal stenosis is seen. IMPRESSION: 1. Multilevel degenerative changes of the thoracic spine, but no significant spinal canal or neuroforaminal stenosis. 2. No acute fracture or dislocation. Dictated by: Dictated on workstation # [id number]
--- NOTE | 2023-05-15 18:42 | Diagnostic Imaging Report ---
INDICATION: Chronic back pain Thoracic spine AP and lateral views of the thoracic spine show normal alignment. There is disc space narrowing throughout the mid and lower thoracic spine with osteophytes forming anteriorly and laterally. IMPRESSION: Diffuse moderate spondylosis of the thoracic spine. Dictated by: Dictated on workstation # [id number]
== END ==
LOC: RAD 12:11
PROVIDERS: ATTEND Nurse Practitioner
DX: M47.817 Spondylosis without myelopathy or radiculopathy, lumbosacral region (principal); M47.816 Spondylosis without myelopathy or radiculopathy, lumbar region; M51.36 Other intervertebral disc degeneration, lumbar region; M51.26 Other intervertebral disc displacement, lumbar region; M48.061 Spinal stenosis, lumbar region without neurogenic claudication; M53.9 Dorsopathy, unspecified; M51.27 Other intervertebral disc displacement, lumbosacral region; M48.07 Spinal stenosis, lumbosacral region
CPT/HCPCS: 72070; 72146; 72148

== ENCOUNTER 2023-05-24 08:55 | Outpatient (RCR) | payer MEDICARE, MEDICAID | END 2023-05-30 | disposition home or self-care (01) | PROVIDERS: ATTEND Pediatrics | DX: Z47.1 Aftercare following joint replacement surgery (principal); Z96.641 Presence of right artificial hip joint ==

== ENCOUNTER → 2023-06-29 | Outpatient (RCR) | payer MEDICARE, MEDICAID | END | disposition home or self-care (01) | PROVIDERS: ATTEND Pediatrics | DX: Z47.1 Aftercare following joint replacement surgery (principal); R53.1 Weakness; Z96.641 Presence of right artificial hip joint; I10 Essential (primary) hypertension; Z72.0 Tobacco use ==